=== PATIENT | female | born 1965 | race Caucasian/White ===

== ENCOUNTER 2017-02-06 09:09 | Inpatient (IN) | payer MEDICARE ==
[~2017-02-06] VITALS: Ht 152.4 cm; Wt 64.4 kg
[~2017-02-06 09:09] MED LIST: ACCUNEB SOL3 ML/NEB INH; ALBUTEROL-200 PUFFS/ IH; AMITIZA24 MCG PO; ANAPROX DS550 MG PO; ANTI-GAS ULTRA180 MG PO; ANUSOL HC 25MG25 MG PR; ASPIRIN 81MG TA81 MG PO; BACTRIM DS 8001 TAB PO; BENZONATATE200 MG PO; BIAXIN500 MG PO; BUSPAR 10MG TAB10 MG PO; CRESTOR5 MG PO; DILTIAZEM ER 1120 MG PO; DRAMAMINE25 MG PO; EFFEXOR-XR150 MG PO; FENOFIBRATE134 M1 PO; FLEET REGU133 ML/BOT PR; FLEXERIL10 MG PO; HYCODAN 5MG. TAB5 MG PO; IPRATROPIUM 2.2.5 ML INH; LAMICTAL 100 M100 MG PO; LEVAQUIN750 MG PO; LINZESS290 MCG PO; LODINE400 MG PO; LOPRESSOR 50 MG50 MG PO; LORTAB 500 MG-71 TAB PO; MACROBID100 M3 PO; MEDROL 4MG. DOSE4 MG PO; METFORMIN500 MG PO; NEBULIZER XX; NEXIUM40 MG PO; NITROGLYCERIN0.4 MG SL; OMNICEF 300 MG300 MG PO; PAROXETINE HCL10 MG PO; PERCOCET 5/3251 EACH PO; SALMETEROL-F28 PUFF2 IN; SYNTHROID0.112 MG PO; TAMIFLU 75MG CA75 MG PO; TESSALON PERLE200 MG PO; TRAZODONE 50MG50 MG PO; WELCHOL625 MG PO; XANAX 1MG TABLET1 MG PO; ZITHROMAX Z-PA250 M2 PO
--- OUTSIDE RECORDS SUMMARY | 2017-02-06 09:22 | External Medical Summary Rpt ---
Author Author , EDUARDO CLARK Address Unknown Phone [email or web address] Care Team Providers Care Medical Lab Tech Instructor Name Role Phone [facility] Unavailable Unavailable PHYSICIANS, [facility] GILMAR CHRISTIANSEN Unavailable Unavailable MICHAEL BESSON OSCAR, BESSON Unavailable Unavailable OSCAR BESSON, KRYSTYNA A, Unavailable Unavailable BESSON, KRYSTYNA A GARCIA, GARCIA Unavailable Unavailable GARCIA ALL, GARCIA ALL Unavailable Unavailable LUNDBERG, LUNDBERG Unavailable Unavailable LUNDBERG JAM, LUNDBERG JAM Unavailable Unavailable [facility], Unavailable Unavailable [facility] NAVEEN TAPIA, NAVEEN Unavailable Unavailable [facility]ON [facility], Unavailable Unavailable [facility], Unavailable [facility]available [facility] Unavailable [facility]available [facility] SURGIAL Unavailable Unavailable ASSOCIATE, [facility] ASSOCIATE [facility] Unavailable Unavailable [facility], [facility]available Unavailable [facility], [facility] Unavailable Unavailable LAB, [facility] Unavailable Unavailable [facility], [facility] Unavailable Unavailable [facility], [facility] Unavailable Unavailable [facility], [facility] JEAN CK, Unavailable Unavailable JEAN CK JEAN CK, Unavailable Unavailable JEAN CK JEAN, INEZ, Unavailable Unavailable JEAN, INEZ BOBO MITESH, BOBO Unavailable Unavailable [facility] AND Unavailable [facility]available [facility] JESSY, JESSY Unavailable Unavailable JESSY JOANNA, Unavailable Unavailable JESSY JOANNA JESSY JOANNA, Unavailable Unavailable JESSY JOANNA BECCA MCADAMS Unavailable Unavailable TYESHA NAZANIN HUDSON S, Unavailable Unavailable NAZANIN HUDSON S [facility], Unavailable Unavailable [facility] [address]ACEY [address], [facility]ACEY WAY Unavailable Unavailable [facility], Unavailable [facility]available [facility] Unavailable Unavailable INC, [facility] ALYSHA, ALEKS, ALYSHA, Unavailable Unavailable ALEKS RIVAS KAYA, RIVAS KAYA Unavailable Unavailable CHERELLE RIVAS A, Unavailable Unavailable CHERELLE RIVAS A [facility], Unavailable Unavailable [facility] JOSÉ MIGUEL ROSA, Unavailable Unavailable JOSÉ MIGUEL ROSA JOSÉ MIGUEL ROSA, Unavailable Unavailable JOSÉ MIGUEL ROSA PA ISIDORO, PA ISIDORO Unavailable Unavailable SUYRA NAN, SURYA Unavailable Unavailable NAN SURYA NAN, SURYA Unavailable Unavailable NAN [facility] Unavailable Unavailable IM[facility]ING [facility], [facility] GIBSON TYESHA, GIBSON TYESHA Unavailable Unavailable KOSTELIC, KOSTELIC Unavailable Unavailable KOSTELIC ANA, Unavailable Unavailable KOSTELIC ANA [facility] Unavailable Unavailable [facility], [facility] Unavailable Unavailable [facility], [facility] KI LITA, KI Unavailable Unavailable LITA TAPIA GLE, TAPIA GLE Unavailable Unavailable KERNSDERRICK Park LEVY, Unavailable Unavailable DERRICK [facility] Unavailable Unavailable [facility], [facility] ADRIÁN HAM, ADRIÁN HAM Unavailable Unavailable MCGROARTY ROSA, Unavailable Unavailable MCGROARTY ROSA KAI LAMA, Unavailable Unavailable MITRA CONRAD JR, JR Unavailable Unavailable F, MITRA QUINN JR, Unavailable Unavailable [facility] LORNA PINEDA, Unavailable Unavailable LORNA PINEDA [facility] Unavailable Unavailable [facility], [facility] Unavailable Unavailable [facility] Unavailable Unavailable LAB, [facility] Unavailable Unavailable LAB, [facility] LAB CHINO HALI, CHINO HALI Unavailable Unavailable CHINO HALI, CHINO HALI Unavailable Unavailable CHINO, VARINDER, CHINO, Unavailable Unavailable VARINDER DIVYA, DIVYA Unavailable Unavailable JERILYN, JERILYN Unavailable Unavailable JERILYN HEA, JERILYN HEA Unavailable Unavailable RICE THO, RICE THO Unavailable Unavailable JOANNA OSCAR, JOANNA OSCAR Unavailable Unavailable JOANNA OSCAR, JOANNA OSCAR Unavailable Unavailable [id number], Unavailable Unavailable [id number] Unavailable Unavailable [id number] [address] [id number], [facility] [id number] # [id number] MENDES II EAR, Unavailable Unavailable MENDES II EAR DIVYA LIS, DIVYA LIS Unavailable Unavailable DIVYA, SIM A, Unavailable Unavailable DIVYA, SIM A CAITLYN Falcon, CAITLYN Falcon Unavailable Unavailable YOVANY JR, YOVANY Unavailable Unavailable JR SLABJAKOBRENETTA JR THO, Unavailable Unavailable SLABPAULA JR THO SOKAN BAB, SOKAN BAB Unavailable Unavailable SOKAN, MARCIA O, Unavailable Unavailable SOKAN, MARCIA O [facility], Unavailable Unavailable [facility], Unavailable Unavailable [facility] Unavailable Unavailable MED CTR, [facility] STACK, STACK Unavailable Unavailable KRYSTYNA JOANNA DO, Unavailable Unavailable KRYSTYNA JOANNA DO CARTAGENA, CARTAGENA Unavailable Unavailable CARTAGENA RAY, CARTAGENA Unavailable Unavailable RAY ASIA MARIE, BETANCOURT Unavailable Unavailable CYNTHIA KIRBY, NIKI Unavailable Unavailable MIRTA [facility], Unavailable Unavailable [facility] Unavailable [facility]available [facility], [facility]available [facility]available #591, [facility] Unavailable Unavailable #591, [facility] # [facility]available Unavailable [id number], [facility] # [id number] ON LICENSE OF [facility] Unavailable Unavailable AGENCY[facility] ON LICENSE OF 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 NERVOUS SYSTEM UNS K5909 OTHER 11-11-2016 [facility] CONSTIPATIO SURGIAL N ASSOCIATE R140 ABDOMINAL 11-11-2016 [facility] DISTENSION SURGIAL GASEOUS ASSOCIATE R159 FULL 11-11-2016 COL[facility] INCONTINENC SURGIAL E OF FECES ASSOCIATE K5730 DIVERTICULO 10-15-2016 [place] SIS LG MEDICAL INTEST W/O IMAGING ASS PERF/ABSC W/O BLEED K5901 SLOW 10-15-2016 [place] TRANSIT MEDICAL CONSTIPATIO IMAGING ASS N N816 RECTOCELE 10-01-2016 [facility] Z8719 PERSONAL 09-20-2016 [place] HISTORY MEDICAL OTHER IMAGING ASS DISEASES DIGESTIVE SYSTEM Z720 TOBACCO USE 09-04-2016 COLORECTAL SURGIAL ASSOCIATE N390 URINARY 06-08-2016 [facility] TRACT CARE INFECTION PHYSICIANS SITE NOT SPECIFIED R1032 LEFT LOWER 06-08-2016 [facility] PRIMARY QUADRANT CARE PAIN PHYSICIANS R1030 LOWER 06-07-2016 [place] ABDOMINAL [place] PAIN INTERNAL UNSPECIFIED MED 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 CHRONIC 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 UNS 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 R32 UNSPECIFIED 05-31-2016 [facility] URINARY HEALTH INCONTINENC AGENCY E R350 FREQUENCY 04-15-2016 NEW OF [place] [facility]CT[facility] PSC R3915 URGENCY OF 04-15-2016 NEW URINATION [facility] PSC I10 ESSENTIAL 03-25-2016 [place] PRIMARY VALLEY HYPERTENSIO INTERNAL N MED [id number] POISONING 03-25-2016 [facility] OTH OPIOIDS VALLEY SELF-HARM INTERNAL INITIAL MED ENCNTR D199Z4Q POISONING 03-25-2016 [place] BENZODIAZEP VALLEY [place] INTERNAL SELF-HARM MED INITIAL ENC Z1231 ENCOUNTER 03-06-2016 [facility] MAMMO MAL INC NEOPLASM BREAST O01362 PERSONAL 03-06-2016 [place] HISTORY OF MEDICAL URINARY IMAGING ASS CALCULI M545 LOW BACK 11-21-2015 [facility] PR[facility] PAIN CARE PHYSICIANS R300 DYSURIA 11-21-2015 [facility] PHYSICIANS N202 CALCULUS OF 10-09-2015 NEW KIDNEY [place] WITH CLINIC PSC CALCULUS OF URETER N201 CALCULUS OF 08-30-2015 NEW URETER [facility] [facility] PSC K5900 CONSTIPATIO 06-27-2015 NEW N [place] UNSPECIFIED CLINIC PSC R1031 RIGHT LOWER 06-27-2015 [facility] P[facility] R150 INCOMPLETE 06-27-2015 NEW DEFECATION [facility] [facility] PSC U23757 OTHER 05-23-2015 [place] MUSCLE VALLEY SPASM INTERNAL MED Q994H0K CONCUSSION 05-23-2015 [place] W/LOC UNS VALLEY DURATION INTERNAL INITIAL MED ENCOUNTER I504WYX SPRAIN 05-23-2015 [place] JOINT & LIG VALLEY UNS PARTS INTERNAL NECK MED SUBSEQUENT ENC I24258 POST-TRAUMA 05-17-2015 [place] TIC MEDICAL HEADACHE IMAGING ASS UNS NOT INTRACTABLE M542 CERVICALGIA 05-17-2015 [place] [facility] ASS R4020 UNSPECIFIED 05-17-2015 [place] COMA MEDICAL IMAGING ASS E2375DO UNSPECIFIED 05-17-2015 [place] INJURY OF MEDICAL HEAD IMAGING ASS INITIAL ENCOUNTER H549ZSR UNSPECIFIED 05-17-2015 [place] INJURY OF MEDICAL NECK IMAGING ASS INITIAL ENCOUNTER 4550 INTERNAL 12-02-2014 NEW HEMORRHOIDS [place] WITHOUT CLINIC PSC MENTION COMP 89028 ESOPHAGEAL 12-02-2014 NEW REFLUX [place] [facility] PSC 53461 UNS 12-02-2014 NEW GASTRITIS&G [place] ASTRODUODIT CLINIC PSC IS W/O MENTION HEMORR 99378 OTHER 12-02-2014 NEW SYMPTOMS [place] INVOLVING CLINIC PSC DIGESTIVE SYSTEM OTHER 5920 CALCULUS OF 11-30-2014 [facility] INC V7189 OBSERVATION 11-30-2014 [place] OTHER MEDICAL SPECIFIED IMAGING ASS SUSPECTED CONDITIONS V2542 SURVEILLANC 07-12-2014 [facility] E PREV PRSC PHYSICIANS INTRAUTERN GROUP CNTRACPT DEVC V259 UNSPECIFIED 07-12-2014 [facility] PHYSICIANS CONTRACEPTI GROUP VE MANAGEMENT 56452 FULL 04-29-2014 NEW INCONTINENC [place] E OF FECES CLINIC PSC 20447 PAINFUL 03-04-2014 [place] RESPIRATION MEDICAL IMAGING ASS 7867 ABNORMAL 03-04-2014 [place] CHEST MEDICAL SOUNDS IMAGING ASS 5921 CALCULUS OF 02-06-2014 [place] URETER MEDICAL IMAGING ASS 73263 HEMATURIA 02-06-2014 [place] UNSPECIFIED MEDICAL IMAGING ASS 04584 ABDOMINAL 02-06-2014 [place] PAIN OTHER MEDICAL SPECIFIED IMAGING ASS SITE 73756 COR 11-04-2013 [facility] UNSPEC INC TYPE VESSEL [place]/CHARLES T 250.00 250.00 DIAB 07-25-2013 [facility], [facility] Hospital II OR UNSPEC TYPE, NOT UNCNTRLD 305.1 305.1 07-25-2013 [place] TOBACCO USE [facility] DISORDER Hospital 413.9 413.9 07-25-2013 [place] ANGINA [facility] PECTORIS [facility] NEC/NOS 493.90 493.90 07-25-2013 [place] ASTHMA, [facility] UNSPECIFIED Hospital 564.00 564.00 07-25-2013 [place] UNSPEC [facility] CONSTIPATIO [facility] N 788.0 788.0 RENAL 07-25-2013 [place] COLIC [facility] 7880 RENAL COLIC 07-25-2013 JOANNA OSCAR 82192 DIAB W/O 05-24-2013 CLINIC COMP TYPE PHARMACY II/UNS NOT STATED UNCNTRL 3499 UNSPECIFIED 04-23-2013 [facility] 98996 ABDOMINAL 04-23-2013 RICE THO PAIN, UNSPECIFIED SITE 79650 UNSPECIFIED 03-25-2013 JESSY JOANNA CONSTIPATIO N 7061 OTHER ACNE 03-25-2013 JESSY JOANNA 2449 UNSPECIFIED 10-22-2012 JESSY JOANNA HYPOTHYROID ISM 2724 OTHER AND 10-22-2012 JESSY UNSPECIFIED JOANNA HYPERLIPIDE NOEMI 4019 UNSPECIFIED 10-22-2012 JESS[facility] ESSENTIAL JOANNA HYPERTENSIO N 496 CHRONIC 10-22-2012 JESSY AIRWAY JOANNA OBSTRUCTION NEC 5641 IRRITABLE 10-22-2012 JESS[facility] BOWEL JOANNA SYNDROME 7873 FLATULENCE 10-22-2012 J[facility] ERUCTATION JOANNA AND GAS PAIN 490 BRONCHITIS 07-29-2012 JESSY NOT JOANNA SPECIFIED ACUTE OR CHRONIC 43583 OBST 07-29-2012 [facility] BRONCHITIS INC W/ACUTE BRONCHITIS 66428 OTHER 07-29-2012 JEAN DISEASES OF CK LUNG NOT ELSEWHERE CLASSIFIED 7291 UNSPECIFIED 07-29-2012 JESSY MYALGIA JOANNA AND MYOSITIS 5363 GASTROPARES 06-29-2012 CHINO HALI IS 5718 OTHER 06-29-2012 CHINO HALI CHRONIC NONALCOHOLI C LIVER DISEASE 55556 DIVERTICULO 06-12-2012 JEAN SIS OF CK COLON 5738 OTHER 06-12-2012 JEAN SPECIFIED CK DISORDERS OF LIVER 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 SITE UNSPEC V4551 PRESENCE OF 06-12-2012 JEAN CK INTRAUTERIN E CONTRACEPTI VE DEVICE 92697 CHEST PAIN 03-17-2012 [place] UNSPECIFIED TH ROSA 2720 PURE 03-11-2012 [place] HYPERCHOLES TH ROSA TEROLEMIA 68046 OTHER CHEST 03-11-2012 [place] PAIN TH ROSA V762 SCREENING 02-27-2012 PATHOLOGY & FOR CYTOLOGY MALIGNANT LAB NEOPLASM OF THE CERVIX 79837 OTHER 12-20-2011 [place] DISEASES OF MEDICAL SPLEEN IMAGING ASS 95640 OTHER 12-20-2011 [place] SPECIFIED MEDICAL DISORDER OF IMAGING ASS KIDNEY AND URETER 7912 HEMOGLOBINU 11-06-2011 [facility] INC 5990 URINARY 10-24-2011 KAI [facility]IST[facility] TRACT KELBY INFECTION SITE NOT SPECIFIED 7881 DYSURIA 10-24-2011 KAI LAMA 7948 NONSPECIFIC 08-29-2011 [facility] ABNORMAL [facility] RESULTS INC LIVR FUNCTION STUDY 462 ACUTE 08-02-2011 [facility] PHARYNGITIS 485 BRONCHOPNEU 08-02-2011 [facility] [place] MONIA ORGANISM UNSPECIFIED 7862 COUGH 08-02-2011 SURYA [place] 63053 UNSPECIFIED 07-17-2011 JESSY OJANNA ARTHROPATHY MULTIPLE SITES 13373 PAIN IN 07-17-2011 [place] JOINT, HAND MEDICAL IMAGING ASS 29989 DISORDER OF 07-17-2011 [facility] BONE AND [facility] CARTILAGE INC UNSPECIFIED 11523 OTHER 07-02-2011 RIVAS KAYA VITREOUS OPACITIES 7231 CERVICALGIA 11-07-2010 [place] [facility] 7241 PAIN IN 11-07-2010 [place] THORACIC MEDICAL SPINE IMAGING ASS 10701 ATROPHIC 10-29-2010 PATHOLOGY & GASTRITIS CYTOLOGY WITHOUT LAB MENTION OF HEMORRHAGE 99500 OTHER SPEC 10-29-2010 [place] MEDICAL GASTRITIS SERV WITHOUT FOUNDATIO MENTION HEMORRHAGE 26576 DYSPHAGIA 10-29-2010 COMMUNITY UNSPECIFIED ANESTH OF THE BLUE 42247 ABDOMINAL 10-29-2010 [place] [facility] PAIN, SERV GENERALIZED FOUNDATIO 7823 EDEMA 10-09-2010 [facility] [place] 7850 UNSPECIFIED 09-05-2010 [facility] TACHYCARDIA [place] V1009 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 2893 LYMPHADENIT 07-12-2010 [facility] UNSPECIFIED EXCEPT MESENTERIC 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 9982 ACCIDENTAL 02-23-2010 [facility] PUN[facility]URE/[facility] CERATION DURING PROC NEC 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 4553 EXTERNAL 02-05-2010 [place] [facility] HEMORRHOIDS SERV WITHOUT FOUNDATIO MENTION COMP 5690 ANAL AND 02-05-2010 [facility] RECTAL [facility] POLYP INC 5693 HEMORRHAGE 02-05-2010 PATHOLOGY & OF RECTUM CYTOLOGY AND ANUS LAB 97126 OTHER 10-05-2009 [facility] SPECIFIED [facility] DYSRHYTHMIA PROF SERV S 40130 THYROTOX 07-03-2009 DERRICK KERNS W/O GOITER/OTH CAUSE W/O CRISIS 08585 OTHER 05-03-2009 [facility] DYSPNEA AND VALLEY INTERNAL RESPIRATORY MED ABNORMALITI ES V5861 LONG-TERM 04-04-2009 [facility]CURRENT[facility] USE OF INC ANTICOAGULA NTS V251 ENCOUNTER 02-28-2009 [facility] INSERT/[facility] CONI IU CLINIC OF CONTRACEPTI SARAH VE DEVICE V7231 ROUTINE 02-28-2009 [facility] GYNECOLOGIC HEALTH AL CLINIC OF EXAMINATION SARAH V7612 OTHER 02-28-2009 [place] SCREENING MEDICAL MAMMOGRAM IMAGING ASSOCIATES 3384 CHRONIC 02-08-2009 LAB [facility] PAIN AMERIC SYNDROME HOLDING 80566 OTHER 02-08-2009 [facility] MALAISE AND PHYSICIANS FATIGUE LAB 93402 OTHER VOICE 12-08-2008 [place] AND MEDICAL RESONANCE IMAGING DISORDERS ASSOCIATES 4660 ACUTE 11-23-2008 [facility] BRONCHITIS [facility] INC 16043 ASTHMA, 11-23-2008 [place] UNSPECIFIED EMERGENCY , SERVICES UNSPECIFIED ASSOCIATES STATUS 4558 UNSPECIFIED 11-20-2008 [facility] HEMORRHOIDS INC WITH OTHER COMPLICATIO N 7242 LUMBAGO 10-31-2008 [facility] VALLEY INTERNAL MED 7810 ABNORMAL 10-31-2008 [facility] INVOLUNTARY VALLEY MOVEMENTS INTERNAL MED 12460 OTHER 07-07-2008 [facility] CHRONIC VALLEY PAIN INTERNAL MED 460 ACUTE 07-07-2008 [place] NASOPHARYNG VALLEY ITIS INTERNAL MED 2409 GOITER, 03-01-2008 [place] UNSPECIFIED [facility]ICAL IMAGING ASSOCIATES 6260 ABSENCE OF 03-01-2008 [facility] MENSTRUATIO [facility] N INC 03610 LOSS OF 03-01-2008 [place] WEIGHT [facility] 84199 INSOMNIA 02-26-2008 [place] UNSPECIFIED VALLEY INTERNAL MED 56212 PAIN IN 01-19-2008 [facility] JOINT, [facility] SHOULDER INC REGION V571 OTHER 01-19-2008 [facility] PHYSICAL [facility] THERAPY INC 83267 OPEN WOUND 12-13-2007 [facility] FACE UNSPEC [facility] HOS[facility] SITE INC WITHOUT MENTION COMP V065 NEED 12-13-2007 [facility] PROPHYLACTI [facility]OS[facility] C INC VACCINATION W/TETANUS-D [facility] [address]79 ENTHESOPATH 12-07-2007 [place] Y OF VALLEY UNSPECIFIED INTERNAL SITE MED 8409 SPRAIN&STRA 12-01-2007 ST [facility] UNSPEC REGIONAL SITE MED CTR SHOULDER&UP PER ARM Allergies, Adverse Reactions, Alerts Type Drug Allergy Adverse Reaction to Substance Substance Reaction Severity Acetaminophen THROAT SWELLS/ITCHING Unknown Hydrocodone THROAT SWELLS/ITCHING Unknown Citalopram ITCHING,SWELLING Unknown Medications Na ND Rx Da Fi Fi Am Da Di Ph RX Ph St me C No te ll ll ou ys ag ar # ys at rm s nt no ma ic us Or Da si cy ia de te s n re d SO 00 02 0 No DI 40 -0 UM 97 2- Lo 98 20 ng CH 30 14 er LO 9 RI Ac DE ti ve 0. 9% SO ALANNAH TI ON KE 00 02 0 No TO 40 -0 RO 93 2- Lo LA 79 20 ng C 50 14 er 30 1 Ac MG ti /M ve L AL DI 00 06 10 2 10 28 RI 88 MO Ac AZ 17 -0 -2 0. TE 64 LL ti EP 23 7- 9- 00 43 ER ve AM 92 20 20 0 AI 77 11 11 D CA 10 0 PH RO AR L MG MA J CY TA BL 03 ET 93 8 # 03 93 DI 00 04 10 2 10 28 RI 87 MO Ac AZ 17 -1 -0 0. TE 90 LL ti EP 23 2- 3- 00 50 ER ve AM 92 20 20 0 AI 77 11 11 D CA 10 0 PH RO AR L MG MA J CY TA BL 03 ET 93 8 # 03 93 DI 00 04 09 2 10 28 RI 87 MO Ac AZ 17 -1 -0 0. TE 90 LL ti EP 23 2- 2- 00 50 ER ve AM 92 20 20 0 AI 77 11 11 D CA 10 0 PH RO AR L MG MA J CY TA BL 03 ET 93 8 # 03 93 DI 00 06 07 1 10 28 RI 88 MO Ac AZ 17 -0 -2 0. TE 96 LL ti EP 23 7- 9- 00 72 ER ve AM 92 20 20 0 AI 77 11 11 D CA 10 0 PH RO AR L MG MA J CY TA BL 03 ET 93 8 # 03 93 DI 00 06 07 1 10 28 RI 88 MO Ac AZ 17 -0 -0 0. TE 96 LL ti EP 23 7- 3- 00 72 ER ve AM 92 20 20 0 AI 77 11 11 D CA 10 0 PH RO AR L MG MA J CY TA BL 03 ET 93 8 # 03 93 DI 00 06 06 2 10 28 RI 88 MO Ac AZ 17 -0 -0 0. TE 64 LL ti EP 23 7- 7- 00 43 ER ve AM 92 20 20 0 AI 77 11 11 D CA 10 0 PH RO AR L MG MA J CY TA BL 03 ET 93 8 # 03 93 DI 00 03 05 2 10 28 RI 87 MO Ac AZ 17 -0 -0 0. TE 29 LL ti EP 23 1- 1- 00 06 ER ve AM 92 20 20 0 AI 77 11 11 D CA 10 0 PH RO AR L MG MA J CY TA BL 03 ET 93 8 # 03 93 DI 00 03 04 2 10 28 RI 87 MO Ac AZ 17 -0 -0 0. TE 29 LL ti EP 23 1- 3- 00 06 ER ve AM 92 20 20 0 AI 77 11 11 D CA 10 0 PH RO AR L MG MA J CY TA BL 03 ET 93 8 # 03 93 DI 00 03 03 2 10 28 RI 87 MO Ac AZ 17 -0 -0 0. TE 29 LL ti EP 23 1- 1- 00 06 ER ve AM 92 20 20 0 AI 77 11 11 D CA 10 0 PH RO AR L MG MA J CY TA BL 03 ET 93 8 # 03 93 DI 00 01 02 1 90 30 RI 86 MO Ac AZ 17 -0 -0 .0 TE 56 LL ti EP 23 9- 1- 00 74 ER ve AM 92 20 20 AI 77 11 11 D CA 10 0 PH RO AR L MG MA J CY TA BL 03 ET 93 8 # 03 93 DI 00 12 12 90 30 RI 86 MO Ac AZ 17 -3 -3 .0 TE 43 LL ti EP 23 0- 0- 00 91 ER ve AM 92 20 20 AI 77 10 10 D CA 10 0 PH RO AR L MG MA J CY TA BL 03 ET 93 8 # 03 93 BE 67 12 12 0 30 8 CL 22 BE Ac NZ 87 -3 -3 .0 IN 96 SS ti ON 70 0- 0- 00 IC 19 ON ve AT 10 20 20 AT [address] E 1 AR EP 20 MA HE 0 CY N MG A LL CA C PS UL E AK 00 12 12 24 4 RI 86 BE Ac OM 60 -2 -2 0. TE 43 SS ti ET 31 9- 9- 00 33 ON ve RICHEY 58 20 20 0 AI ZI [address] 4 PH EP -D AR HE M MA N SY CY A RU P 03 93 8 # 03 93 AL 00 11 11 0 90 30 WA 44 MC Ac AK 37 -2 -2 .0 L- 90 KE ti AZ 84 6- 6- 00 MA 08 MO ve OL 00 20 20 RT 0 E AM 50 10 10 JR 1 1 PH AR WI MG MA LL CY IA TA # M BL F ET 10 05 91 DI 00 09 11 2 90 30 RI 85 MO Ac AZ 17 -2 -2 .0 TE 20 LL ti EP 23 9- 4- 00 48 ER ve AM 92 20 20 AI 77 10 10 D CA 10 0 PH RO AR L MG MA J CY TA BL 03 ET 93 8 # 03 93 AL 00 10 10 0 90 30 WA 44 MC Ac AK 37 -2 -2 .0 L- 89 KE ti AZ 84 8- 8- 00 MA 38 MO ve OL 00 20 20 RT 8 E AM 50 10 10 JR 1 1 PH AR WI MG MA LL CY IA TA # M BL F ET 10 05 91 DI 00 09 10 2 90 30 RI 85 MO Ac AZ 17 -2 -2 .0 TE 20 LL ti EP 23 9- 7- 00 48 ER ve AM 92 20 20 AI 77 10 10 D CA 10 0 PH RO AR L MG MA J CY TA BL 03 ET 93 8 # 03 93 DI 00 09 09 2 90 30 RI 85 MO Ac AZ 17 -2 -3 .0 TE 20 LL ti EP 23 9- 0- 00 48 ER ve AM 92 20 20 AI 77 10 10 D CA 10 0 PH RO AR L MG MA J CY TA BL 03 ET 93 8 # 03 93 00 06 08 2 90 30 RI 83 MO Ac 55 -0 -1 .0 TE 61 LL ti 50 1- 1- 00 93 ER ve 16 20 20 AI 40 10 10 D CA 5 PH RO AR L MA J CY 03 93 8 # 03 93 00 06 07 2 90 30 RI 83 MO Ac 55 -0 -1 .0 TE 61 LL ti 50 1- 2- 00 93 ER ve 16 20 20 AI 40 10 10 D CA 2 PH RO AR L MA J CY 03 93 8 # 03 93 MA 60 07 07 5 60 30 WA 88 SE Ac GN 25 -0 -0 .0 L- 16 LB ti ES 80 1- 1- 00 MA 23 Y ve IU 17 20 20 RT 0 LI M 10 10 10 SB OX 1 PH ET ID AR H E MA A 40 CY 0 # MG 10 TA 05 BL 91 ET DI 00 06 06 2 90 30 RI 83 MO Ac AZ 17 -0 -1 .0 TE 61 LL ti EP 23 1- 5- 00 93 ER ve AM 92 20 20 AI 77 10 10 D CA 10 0 PH RO AR L MG MA J CY TA BL 03 ET 93 8 # 03 93 DI 00 03 05 2 90 30 RI 82 MO Ac AZ 17 -2 -1 .0 TE 67 LL ti EP 23 3- 6- 00 01 ER ve AM 92 20 20 AI 77 10 10 D CA 10 0 PH RO AR L MG MA J CY TA BL 03 ET 93 8 # 03 93 DI 00 03 04 2 90 30 RI 82 MO Ac AZ 17 -2 -2 .0 TE 67 LL ti EP 23 3- 0- 00 01 ER ve AM 92 20 20 AI 77 10 10 D CA 10 0 PH RO AR L MG MA J CY TA BL 03 ET 93 8 # 03 93 DI 00 03 03 2 90 30 RI 82 MO Ac AZ 17 -2 -2 .0 TE 67 LL ti EP 23 3- 3- 00 01 ER ve AM 92 20 20 AI 77 10 10 D CA 10 0 PH RO AR L MG MA J CY TA BL 03 ET 93 8 # 03 93 DI 00 12 02 01 60 30 RI 81 No Ac AZ 17 -2 -1 .0 TE 50 t ti EP 23 9- 1- 00 51 Av ve AM 92 20 20 AI ai 77 09 10 D la 10 0 PH bl AR e MG M #3 TA 93 BL 8 ET DI 00 12 01 00 60 30 RI 81 No Ac AZ 17 -2 -1 .0 TE 50 t ti EP 23 9- 4- 00 51 Av ve AM 92 20 20 AI ai 77 09 10 D la 10 0 PH bl AR e MG M #3 TA 93 BL 8 ET DI 00 10 12 00 60 30 RI 80 No Ac AZ 17 -2 -0 .0 TE 79 t ti EP 23 9- 3- 00 59 Av ve AM 92 20 20 AI ai 77 09 09 D la 10 0 PH bl AR e MG M #3 TA 93 BL 8 ET DI 00 09 11 01 60 30 RI 80 No Ac AZ 17 -3 -0 .0 TE 22 t ti EP 23 0- 5- 00 07 Av ve AM 92 20 20 AI ai 77 09 09 D la 10 0 PH bl AR e MG M #3 TA 93 BL 8 ET DI 00 09 10 00 60 30 RI 80 No Ac AZ 17 -3 -0 .0 TE 22 t ti EP 23 0- 8- 00 07 Av ve AM 92 20 20 AI ai 77 09 09 D la 10 0 PH bl AR e MG M #3 TA 93 BL 8 ET DI 00 09 09 00 14 7 RI 79 No Ac AZ 17 -0 -2 .0 TE 91 t ti EP 23 9- 4- 00 62 Av ve AM 92 20 20 AI ai 77 09 09 D la 10 0 PH bl AR e MG M #3 TA 93 BL 8 ET AL 00 08 09 00 60 30 WA 44 MC Ac AK 37 -3 -1 .0 L- 79 KE ti AZ 84 1- 0- 00 MA 29 MO ve OL 00 20 20 RT 9 E AM 50 09 09 JR 1 1 PH AR WI MG MA LL CY IA TA M BL #5 F ET 91 DI 00 08 08 00 60 30 RI 79 No Ac AZ 17 -1 -2 .0 TE 51 t ti EP 23 1- 7- 00 18 Av ve AM 92 20 20 AI ai 77 09 09 D la 10 0 PH bl AR e MG M #3 TA 93 BL 8 ET AL 00 07 08 00 60 30 WA 44 BE Ac AK 37 -2 -1 .0 L- 78 SS ti AZ 84 8- 3- 00 MA 47 ON ve OL 00 20 20 RT 3 AM [address] 1 1 PH EP AR HE MG MA N CY A TA BL #5 ET 91 DI 00 05 07 01 60 30 RI 78 No Ac AZ 17 -2 -1 .0 TE 66 t ti EP 23 8- 6- 00 17 Av ve AM 92 20 20 AI ai 77 09 09 D la 10 0 PH bl AR e MG M #3 TA 93 BL 8 ET CH 00 07 07 00 60 30 RI 79 No Ac LO 55 -0 -1 .0 TE [address] 50 9- 6- 00 00 Av ve IA 15 20 20 AI ai ZE 90 09 09 D la PO 2 PH bl XI AR e DE M #3 25 93 8 MG CA PS UL E DI 00 05 06 00 60 30 RI 78 No Ac AZ 17 -2 -1 .0 TE 66 t ti EP 23 8- 8- 00 17 Av ve AM 92 20 20 AI ai 77 09 09 D la 10 0 PH bl AR e MG M #3 TA 93 BL 8 ET DI 00 03 05 01 60 30 WA 44 No Ac AZ 37 -1 -0 .0 L- 75 t ti EP 80 9- 7- 00 MA 26 Av ve AM 47 20 20 RT 5 ai 70 09 09 la 10 5 PH bl AR e MG MA CY TA BL #5 ET 91 DI 00 03 03 00 60 30 WA 44 No Ac AZ 37 -1 -2 .0 L- 75 t ti EP 80 9- 6- 00 MA 26 Av ve AM 47 20 20 RT 5 ai 70 09 09 la 10 5 PH bl AR e MG MA CY TA BL #5 ET 91 CL 00 02 02 00 60 30 RI 77 No Ac ON 09 -1 -2 .0 TE 16 t ti AZ 30 9- 6- 00 27 Av ve EP 83 20 20 AI ai AM 30 09 09 D la 1 1 PH bl AR e MG M #3 TA 93 BL 8 ET CL 00 11 01 02 60 30 RI 75 No Ac ON 09 -0 -1 .0 TE 79 t ti AZ 30 4- 5- 00 09 Av ve EP 83 20 20 AI ai AM 30 08 09 D la 1 1 PH bl AR e MG M #3 TA 93 BL 8 ET CL 00 11 12 01 60 30 RI 75 No Ac ON 09 -0 -1 .0 TE 79 t ti AZ 30 4- 8- 00 09 Av ve EP 83 20 20 AI ai AM 30 08 08 D la 1 1 PH bl AR e MG M #3 TA 93 BL 8 ET CL 00 11 11 00 60 30 RI 75 No Ac ON 09 -0 -2 .0 TE 79 t ti AZ 30 4- 0- 00 09 Av ve EP 83 20 20 AI ai AM 30 08 08 D la 1 1 PH bl AR e MG M #3 TA 93 BL 8 ET CL 00 10 10 00 60 30 RI 75 No Ac ON 09 -1 -2 .0 TE 37 t ti AZ 30 4- 3- 00 89 Av ve EP 83 20 20 AI ai AM 30 08 08 D la 1 1 PH bl AR e MG M #3 TA 93 BL 8 ET CL 00 06 08 02 60 30 RI 73 No Ac ON 09 -2 -2 .0 TE 87 t ti AZ 30 4- 8- 00 45 Av ve EP 83 20 20 AI ai AM 30 08 08 D la 1 1 PH bl AR e MG M #3 TA 93 BL 8 ET CL 00 06 08 01 60 30 RI 73 No Ac ON 09 -2 -0 .0 TE 87 t ti AZ 30 4- 1- 00 45 Av ve EP 83 20 20 AI ai AM 30 08 08 D la 1 1 PH bl AR e MG M #3 TA 93 BL 8 ET CL 00 06 07 00 60 30 RI 73 No Ac ON 09 -2 -0 .0 TE 87 t ti AZ 30 4- 3- 00 45 Av ve EP 83 20 20 AI ai AM 30 08 08 D la 1 1 PH bl AR e MG M #3 TA 93 BL 8 ET AL 00 05 07 01 60 30 WA 44 No Ac AK 37 -2 -0 .0 L- 68 t ti AZ 84 3- 3- 00 MA 39 Av ve OL 00 20 20 RT 9 ai AM 50 08 08 la 1 1 PH bl AR e MG MA CY TA BL #5 ET 91 AL 00 05 06 00 60 30 WA 44 No Ac AK 37 -2 -0 .0 L- 68 t ti AZ 84 3- 5- 00 MA 39 Av ve OL 00 20 20 RT 9 ai AM 50 08 08 la 1 1 PH bl AR e MG MA CY TA BL #5 ET 91 CL 00 03 06 02 60 30 RI 72 No Ac ON 09 -2 -0 .0 TE 60 t ti AZ 30 4- 5- 00 54 Av ve EP 83 20 20 AI ai AM 30 08 08 D la 1 1 PH bl AR e MG M #3 TA 93 BL 8 ET CL 00 03 05 01 60 30 RI 72 No Ac ON 09 -2 -0 .0 TE 60 t ti AZ 30 4- 8- 00 54 Av ve EP 83 20 20 AI ai AM 30 08 08 D la 1 1 PH bl AR e MG M #3 TA 93 BL 8 ET CL 00 03 04 00 60 30 RI 72 No Ac ON 09 -2 -1 .0 TE 60 t ti AZ 30 4- 0- 00 54 Av ve EP 83 20 20 AI ai AM 30 08 08 D la 1 1 PH bl AR e MG M #3 TA 93 BL 8 ET CL 00 02 04 00 60 30 RI 72 No Ac ON 09 -2 -0 .0 TE 16 t ti AZ 30 5- 7- 00 81 Av ve EP 83 20 20 AI ai AM 30 08 08 D la 1 1 PH bl AR e MG M #3 TA 93 BL 8 ET CL 00 12 03 02 60 30 RI 70 No Ac ON 09 -0 -2 .0 TE 86 t ti AZ 30 3- 6- 00 31 Av ve EP 83 20 20 AI ai AM 30 07 08 D la 1 1 PH bl AR e MG M #3 TA 93 BL 8 ET Immunization Name Date Rout CVX Reac Dose Comm Prov Is Faci e tion ent ider Refu lity Give sed n TDAP 06-2 115 MAIRA No MAIRA 2-20 BRUNILDA BRUNILDA VACC 08 [facility]E 7 HOSP HOSP YRS/ INC INC > IM Vital Signs 07-25-2013 15:40 Name Value Interpretat Reference Comment ion Range Body 98.1 [degF] Temperature BP 62 mm[Hg] Diastolic BP Systolic 104 mm[Hg] Heart 73 /min Rate/Pulse O2% 96 % Respiratory 20 /min Rate 07-25-2013 13:29 Name Value Interpretat Reference Comment ion Range BP 71 mm[Hg] Diastolic BP Systolic 135 mm[Hg] Heart 77 /min Rate/Pulse O2% 94 % Respiratory 20 /min Rate Results Labs Lab Lab Date Result Refere Interp Status Commen Order Detail nces retati t Range on COMPREHENSIVE METABOLIC PANEL (07-25-2013 13:25) Glucose 190 74-106 complet 014 mg/dL ed Bld-mCn 13:25 c BUN 13 7-18 complet Bld-mCn 014 mg/dL ed c 13:25 Creat 1.0 0.6-1.0 complet SerPl-m 014 mg/dL ed Cnc 13:25 Creat 71 50-200 complet Cl 014 ML/MIN ed predict 13:25 ed SerPl C-G-vRa te GFR/BSA 59 59- complet .pred 014 ML/MIN ed SerPl 13:25 Schwart z-vRate Sodium 142 136-145 complet SerPl-s 014 mmoL/L ed Cnc 13:25 Potassi 3.3 3.5-5.1 complet um 014 mmoL/L ed SerPl-s 13:25 Cnc Chlorid 104 98-107 complet e 014 mmoL/L ed SerPl-s 13:25 Cnc CO2 28 21.0-32 complet SerPl-s 014 mmoL/L .0 ed Cnc 13:25 Calcium 8.9 8.5-10. complet 014 mg/dL 1 ed SerPl-m 13:25 Cnc Prot 02-02-2 7.2 6.4-8.2 complet SerPl-m 014 gm/dL ed Cnc 13:25 Albumin 02-02-2 4.1 3.4-5.0 complet 014 gm/dL ed SerPl-m 13:25 Cnc Globuli 02-02-2 3.1 1.3-3.2 complet n 014 gm/dL ed Ser-mCn 13:25 c Albumin 02-02-2 1.3 UNK 1.1-1.8 complet /Glob 014 ed SerPl-m 13:25 Rto Bilirub 02-02-2 0.1 0.2-1.0 complet 014 mg/dL ed SerPl-m 13:25 Cnc AST 02-02-2 27 U/L 15-37 complet SerPl-c 014 ed Cnc 13:25 ALT 02-02-2 40 U/L 12-78 complet SerPl-c 014 ed Cnc 13:25 ALP 02-02-2 129 U/L 50-136 complet SerPl-c 014 ed Cnc 13:25 Amylase SerPl-cCnc (07-25-2013 13:25) Amylase 02-02-2 41 U/L 25-115 complet 014 ed SerPl-c 13:25 Cnc LIPASE (07-25-2013 13:25) LIPASE 02-02-2 428 U/L 73-393 complet 014 ed 13:25 CBC with AUTO DIFF (07-25-2013 13:25) WBC # 02-02-2 7.3 4.8-10. complet Bld 014 K/MM3 8 ed Auto 13:25 RBC # 02-02-2 4.20 4.2-5.4 complet Bld 014 M/mm3 ed Auto 13:25 Hgb 02-02-2 13.2 12.2-16 complet Bld-mCn 014 g/dL .2 ed c 13:25 Hct Fr 02-02-2 37.3 % 37.0-47 complet Bld 014 .0 ed 13:25 MCV RBC 02-02-2 88.9 fl 82.2-97 complet 014 .8 ed 13:25 MCH RBC 02-02-2 31.5 pg 27-31.2 complet Qn 014 ed Auto 13:25 MEAN 02-02-2 35.4 31.8-35 complet CORPUSC 014 g/dl .4 ed ULAR 13:25 HGB CONC RDW RBC 02-02-2 13.9 % 11.5-17 complet Auto 014 .5 ed 13:25 Platele 02-02-2 291 142-424 complet t Bld 014 K/mm3 ed Ql 13:25 Manual MEAN 02-02-2 7.4 fl 7.4-10. complet PLATELE 014 4 ed T 13:25 VOLUME Granulo 02-02-2 57.9 % 37.0-80 complet cytes 014 .0 ed Fr Bld 13:25 Auto LYMPH % 02-02-2 33.5 % 10-50.0 complet 014 ed 13:25 Monocyt 02-02-2 4.1 % 1.7-9.3 complet es Fr 014 ed Bld 13:25 Auto Eosinop 02-02-2 3.4 % 0.1-12. complet hil Fr 014 0 ed Bld 13:25 Auto Basophi 02-02-2 1.1 % 0.1-2.0 complet ls Fr 014 ed Bld 13:25 Auto Granulo 02-02-2 4.2 1.8-7.8 complet cytes # 014 K/mm3 ed Bld 13:25 Auto Lymphoc 02-02-2 2.4 0.7-4.5 complet ytes Fr 014 K/mm3 ed Bld 13:25 Auto Monocyt 02-02-2 0.3 0.1-1.0 complet es # 014 K/mm3 ed Bld 13:25 Auto Eosinop 02-02-2 0.3 0.0-0.4 complet hil # 014 K/mm3 ed Bld 13:25 Auto Basophi 02-02-2 0.1 0-0.2 complet ls # 014 K/MM3 ed Bld 13:25 Auto B-HCG Ur Ql (07-25-2013 12:46) B-HCG 2 NEGATIV NEG complet Ur Ql 014 E ed 12:46 URINALYSIS/COMPLETE (07-25-2013 12:46) URINE YELLOW YELLOW complet COLOR 014 ed 12:46 URINE CLEAR CLEAR complet APPEARA 014 ed NCE 12:46 URINE NEGATIV NEG complet GLUCOSE 014 E ed - 12:46 DIPSTIC K URINE 1+ NEG complet BILIRUB 014 ed IN - 12:46 DIPSTIC K URINE NEGATIV NEG complet KETONE 014 E mg/dL ed 12:46 URINE Greater 1.005-1 complet SPECIFI 014 than .030 ed C 12:46 or GRAVITY equal to 1.030 URINE 3+ NEG complet BLOOD 014 ed 12:46 URINE 6.0 UNK 5.0-8.5 complet PH 014 ed 12:46 URINE 1+ NEG complet PROTEIN 014 mg/dL ed - 12:46 DIPSTIC K URINE 0.2 NEG complet UROBILI 014 E.U./dL ed NOGEN - 12:46 DIPSTIC K URINE NEGATIV NEG complet NITRATE 014 E ed - 12:46 DIPSTIC K URINE 1+ NEG complet LEUK 014 ed ESTERAS 12:46 E URINE 10-20 0 complet RBC 014 rbc/hpf ed 12:46 URINE OCC O complet WBC 014 wbc/hpf ed 12:46 URINE 3-5 0-5 complet SQUAMOU 014 #/hpf ed S CELLS 12:46 URINE 1+ NONE complet CALCIUM 014 #/hpf ed 12:46 OXALATE CRYSTAL S URINE TRACE O complet BACTERI 014 ed A 12:46 Procedures Procedure DOS Code Location Performer Comment ANES 93132 ANESTHESI JERILYN LITHOTRP 7 A XTRCORP ASSOCIATE SHOCK S PSC WAVE W/O WATER BATH LITHOTRIP 53165 [facility] XTRCORP CLINIC SHOCK PSC WAVE RADEX 75285 [facility] [place] KOSTELIC ABDOMEN 1 7 RADIOLOGY ANTEROPOS TERIOR VIEW URNLS DIP 10129 [facility] STICK/TAB CLINIC LET RGNT PSC AUTO W/O MICROSCOP Y RADEX 18283 [facility] COLON 7 MEDICAL BARIUM IMAGING ENEMA ASS W/WO KUB RADEX 89566 [facility] COLON 7 Y OF Y OF BARIUM MIRELLA VU ENEMA E HOS E HOS W/WO KUB RADEX 21560 [facility] ABDOMEN 1 7 [facility] INC INC ANTEROPOS TERIOR VIEW RADEX 52790 [facility] CAT ABDOMEN 1 7 [facility] INC INC ANTEROPOS TERIOR VIEW RADEX 46396 [facility] CAT ABDOMEN 1 7 [facility] INC INC ANTEROPOS TERIOR VIEW PROCTOSGM 15534 [facility] DIVYA DSC RGD 7 L SURGIAL DX W/WO COLLJ ASSOCIATE SPEC BR/[place] [address] [facility] [place] CARTAGENA ABDOMEN & 6 RADIOLOGY PELVIS W/O CONTRAST MATERIAL URNLS DIP 05717 [facility] 6 VALLEY STICK/TAB INTERNAL LET RGNT MED NON-AUTO W/O MICRSCP ADLT SZD T4525 [facility] DISPBL 6 HOME HOME INCONT HEALTH HEALTH PROD AGENCY AGENCY UNDWEAR/P ULLON SM EA DISPBL T4535 [facility] LINER/SHERICE 6 HOME HOME ELD/GUARD HEALTH HEALTH /PAD/UNDG AGENCY AGENCY RMNT INCONT EA INCONTINE T4541 [facility] NCE 6 HOME HOME PRODUCT HEALTH HEALTH DISPOSABL AGENCY AGENCY E UNDPAD LARGE EA DISPBL T4535 [facility] LINER/SHERICE 6 HOME HOME ELD/GUARD HEALTH HEALTH /PAD/UNDG AGENCY AGENCY RMNT INCONT EA ADLT SZD T4525 [facility] DISPBL 6 HOME HOME INCONT HEALTH HEALTH PROD AGENCY AGENCY UNDWEAR/P ULLON SM EA DISPBL T4535 [facility] LINER/SHERICE 6 HOME HOME ELD/GUARD HEALTH HEALTH /PAD/UNDG AGENCY AGENCY RMNT INCONT EA INCONTINE T4541 [facility] NCE 6 HOME HOME PRODUCT HEALTH HEALTH DISPOSABL AGENCY AGENCY E UNDPAD LARGE EA OBSERVATI 98125 [facility] ON CARE 6 [facility] OSCAR DISCHARGE INTERNAL MED MANAGEMEN T INITIAL 76067 [facility] OBSERVATI 6 [place] OSCAR ON INTERNAL CARE/DAY MED 30 MINUTES ECG 97005 [facility] POST ROUTINE 6 [facility] ECG HOSPITAL W/LEAST P 12 LDS I&R ONLY RADEX 34010 [facility] CAT ABDOMEN 1 6 [facility] INC INC ANTEROPOS TERIOR VIEW SCREENING G0202 [facility] CAT 6 [facility] MAMMOGRAP INC INC HY KIM INCL CAD WHEN PERFORMD COMPUTER- 74876 [facility] CAT AIDED 6 [facility] DETECTION INC INC SCREENING MAMMOGRAP HY DISPBL T4535 [facility] LINER/SHERICE 6 HOME HOME ELD/GUARD HEALTH HEALTH /PAD/UNDG AGENCY AGENCY RMNT INCONT EA ADLT SZD T4525 [facility] DISPBL 6 HOME HOME INCONT HEALTH HEALTH PROD AGENCY AGENCY UNDWEAR/P ULLON SM EA INCONTINE T4541 [facility] NCE 6 HOME HOME PRODUCT HEALTH HEALTH DISPOSABL [place] [address] [facility] [place] LUNDBERG ABDOMEN & 6 RADIOLOGY PELVIS W/O CONTRAST MATERIAL INCONTINE T4541 [facility] NCE 6 HOME HOME PRODUCT HEALTH HEALTH DISPOSABL AGENCY AGENCY E UNDPAD LARGE EA ADLT SZD T4526 [facility] DISPBL 6 HOME HOME INCONT HEALTH HEALTH PROD AGENCY AGENCY UNDWEAR MED EA DISPBL T4535 [facility] LINER/SHERICE 6 HOME HOME ELD/GUARD HEALTH HEALTH /PAD/UNDG AGENCY AGENCY RMNT INCONT EA PT DOC G8907 NEW NEW NO:BURN;F 6 [facility] ALL CLINIC CLINIC FAC;WRG PSC PSC EVENT;/HO S TRANSFER PT PREOP G8916 NEW NEW ORD IV 6 [facility] ABX PROPH CLINIC CLINIC ABX PSC PSC INITIATED TIME PROSTHETI L8699 NEW NEW C IMPLANT 6 [facility] NOT CLINIC CLINIC OTHERWISE PSC PSC SPECIFIED URNLS DIP 13844 NEW [place] 6 [place] JR STICK/TAB CLINIC LET RGNT PSC AUTO W/O MICROSCOP Y ANES 53234 ANESTHESI GIBSON TYESHA TRURL 6 A FRAGMNTJ ASSOCIATE MANJ&/RMV S PSC L URETERAL CALCULUS CYSTO 53588 NEW NEW W/INSERT 6 [facility] URETERAL CLINIC CLINIC STENT PSC PSC CYSTO 24688 NEW [facility] W/URETERO 6 [facility] SCOPY CLINIC CLINIC W/[place]VL/[place] [address] EMORYSWATHI CAT ABDOMEN & 6 [facility] PELVIS INC INC W/[place] [address] [place] GARCIA ALL HEAD/BRAI 5 MEDICAL N W/[place] [address] [place] G[place] ALL CERVICAL 5 MEDICAL SPINE W/O IMAGING CONTRAST ASS MATERIAL INCONTINE T4541 [facility] NCE 5 HOME HOME PRODUCT HEALTH HEALTH DISPOSABL AGENCY AGENCY E UNDPAD LARGE EA DISPBL T4535 [facility] LINER/SHERICE 5 HOME HOME ELD/GUARD HEALTH HEALTH /PAD/UNDG AGENCY AGENCY RMNT INCONT EA ADLT SZD T4525 [facility] DISPBL 5 HOME HOME INCONT HEALTH HEALTH PROD AGENCY AGENCY UNDWEAR/P ULLON SM EA COLONOSCO 40872 ENDOSCOPY ENDOSCOPY PY 5 AND AND FLEXIBLE SURGICAL SURGICAL WITH BAND CTR O CTR O LIGATION( S) EGD 06865 ENDOSCOPY ENDOSCOPY TRANSORAL 5 AND AND BIOPSY SURGICAL SURGICAL SINGLE/[place] [address] [facility] ISIDORO SURG 5 [place] [facility] GROSS&TYESHA ROSCOPIC EXAM RADEX 82057 [place] NADEEM ABDOMEN 1 5 MEDICAL MICHAEL IMAGING ANTEROPOS ASS TERIOR VIEW REMOVAL 91248 [facility] PHYSICIAN WILLIE INE S GROUP DEVICE IUD INSERTION 62148 [facility] 5 PHYSICIAN PHYSICIAN INTRAUTER S GROUP S GROUP INE DEVICE IUD INC 69632 [facility] IMPLTJ 4 [place] JR O NEUROSTIM CLINIC ULATOR [facility] ELTRD SACRAL NERVE RADEX 22851 [place] BEINEKE RIBS 4 MEDICAL MICHAEL UNILATERA IMAGING L 2 VIEWS ASS RADEX 44074 [facility] CAT RIBS UNI 4 [facility] W/POSTERO INC INC ANT CH MINIMUM 3 VIEWS RADIOLOGI 27077 [facility] CAT C EXAM 4 [facility] CHEST 2 INC INC VIEWS FRONTAL&[place] [address] GHANSHYAM PACHECOUTCHER ABDOMEN & 4 MEDICAL CK PELVIS IMAGING W/O ASS CONTRAST MATERIAL ECG 97955 SINCERE POST ROUTINE 4 OSCAR OSCAR ECG W/LEAST 12 LDS I&R ONLY ECG 60564 [facility] CAT ROUTINE 4 [facility] ECG INC INC W/LEAST 12 LDS TRCG ONLY W/O I&R LITHOTRIP 62122 YOVANY PEDROZA SY 4 JR THO JR THO XTRCORP SHOCK WAVE BLD GLU A4253 CLINIC CLINIC TEST/REAG 3 PHARMACY PHARMACY T STRIPS HOME BLD GLU LANCETS A4259 CLINIC CLINIC PER BOX 3 PHARMACY PHARMACY OF 100 RADEX ABD 69070 [facility] COMPL 3 NONDENOMINATIONAL NONDENOMINATIONAL AQT ABD HOSP HOSP W/S/E/D V[place] [address] [place] [address] MITZI CARTAGENA ABDOMEN & 3 WILLA PELVIS W/O CONTRAST MATERIAL RADIOLOGI 48203 EMORY CAT C EXAM 3 [facility] CHEST 2 INC INC VIEWS FRONTAL&L ATERAL INJECTION J3301 JESSY SAMPSON HAM 3 JOANNA TRIAMCINO LONE [place] [address] [place] [address] EMORY CAT ABDOMEN & 2 [facility] PELVIS INC INC W/O CONTRAST MATERIAL 3D 79341 EMORY CAT RENDERING 2 [facility] INC INC W/INTERP& POSTPROC DIFF WORK STATION RADEX 32867 EMORY CAT ABDOMEN 1 2 [facility] INC INC ANTEROPOS TERIOR VIEW CATH PLMT 52214 [facility] L HRT & 2 ORTH ROSA ORTH ROSA ARTS W/NJX & ANGIO IMG S&I ECG 60655 [facility] ROUTINE 2 ORTH ROSA ORTH ROSA ECG W/LEAST 12 LDS W/I&R RADIOLOGI 72102 [facility] BRADY J C EXAM 2 RADIOLOGY CHEST 2 ASSOC VIEWS FRONTAL&L ATERAL SCR G0145 PATHOLOGY PATHOLOGY CYTOPATH 2 & & CERV/VAG CYTOLOGY CYTOLOGY SCR LAB LAB AUTO&MNL RSCR PHYS BLD GLU A4253 [facility] TEST/REAG 2 PHARMACY PHARMACY T STRIPS 30-4506 #591 HOME BLD GLU MON-50 CYSTO 49432 YOVANY PEDROZA W/INSERT 2 JR THO JR THO URETERAL STENT CYSTO 01768 NEW NEW W/URETERO 2 [facility] CLINIC CLINIC W/RMVL/[place] [address] [place] JEAN ABDOMEN & 2 MEDICAL CK PELVIS IMAGING W/O ASS CONTRAST MATERIAL 3D 97278 [place] JEAN RENDERING 2 MEDICAL CK IMAGING W/INTERP& ASS POSTPROC DIFF WORK STATION 3D 47341 [place] JEAN RENDERING 2 MEDICAL CK IMAGING W/INTERP& [place] [address] [place] JEAN ABDOMEN & 2 MEDICAL CK PELVIS IMAGING [place] [address] EMORY CAT ABDOMINAL 2 [facility] REAL INC INC TIME W/IMAGE DOCUMENTA TION LIPID 27044 EMORY CAT PANEL 2 [facility]OS[facility] INC INC RHEUMATOI 63209 EMORY CAT D FACTOR 2 MEM HOS[facility] MEM HOS[facility] QUANTITAT INC INC HAIM COMPREHEN 94285 EMORY CAT SIVE 2 MEM H[facility] MEM HOS[facility] METABOLIC INC INC PANEL ANTINUCLE 09986 EMORY CAT AR 2 MEM HOS[facility] MEM HOSP ANTIBODIE INC INC S LAM SEDIMENTA 97302 EMORY CAT TION RATE 2 MEM HOS[facility] MEM [facility]OS[facility] RBC INC INC NON-AUTOM ATED CYCLIC 29008 EMORY CAT CITRULLIN 2 MEM HOS[facility] MEM HOS[facility] [place]ED [place] [address] EMORY CAT THYROID 2 MEM HOS[facility]OS[facility] STIMULATI INC INC NG HORMONE TSH THERAPEUT 08776 JESSY JIMÉNEZ IC 2 JOANNA JOANNA PROPHYLAC TIC/DX INJECTION SUBQ/IM 25 20058 EMORY CAT HYDROXY 2 [facility]OS[facility] INCLUDES INC INC FRACTIONS IF PERFORMED BLOOD 64281 EMORY CAT COUNT 2 [facility] COMPLETE INC INC AUTO&AUTO DIFRNTL WBC RADEX 90061 [place]AR[place] JEAN HAND 2 MEDICAL CK MINIMUM 3 IMAGING VIEWS ASS COLLECTIO 46328 EMORY CAT N VENOUS 2 [facility] BLOOD INC INC VENIPUNCT URE DETERMINA 07403 RIVAS KAYA RIVAS KAYA TION 2 REFRACTIV E STATE RADEX 35107 EMORY CAT ABDOMEN 1 1 [facility] INC INC ANTEROPOS TERIOR VIEW RADEX 49003 TARAY JEAN ABDOMEN 1 1 MEDICAL CK IMAGING ANTEROPOS ASS TERIOR VIEW RADEX 29795 EMORY CAT ABDOMEN 1 1 [facility] INC INC ANTEROPOS TERIOR VIEW SCR G0123 PATHOLOGY PATHOLOGY CYTOPATH 1 & & CERV/VAG CYTOLOGY CYTOLOGY SCR LAB LAB CYTOTECH UND PHYS SUPV RADEX 07508 KENT[place] JEAN ABDOMEN 1 1 MEDICAL CK IMAGING ANTEROPOS ASS TERIOR VIEW RADEX 96089 [place] JEAN ABDOMEN 1 1 MEDICAL CK IMAGING ANTEROPOS ASS TERIOR VIEW RADEX 93040 [place] JEAN ABDOMEN 1 1 MEDICAL CK IMAGING ANTEROPOS ASS TERIOR VIEW RADEX 70401 EMORY CAT ABDOMEN 1 1 [facility] INC INC ANTEROPOS TERIOR VIEW MRI 69939 EMORY CAT SPINAL 1 [facility] CANAL INC INC THORACIC W/O CONTRAST MATRL MRI 01612 EMORY CAT SPINAL 1 [facility] CANAL INC INC CERVICAL W/O CONTRAST MATRL 3D 14186 EMORY CAT RENDERING 1 [facility] W/INTERP INC INC & POSTPROCE SS SUPERVISI ON RADEX 77454 EMORY CAT ABDOMEN 1 1 [facility] INC INC ANTEROPOS TERIOR VIEW URINE 96692 EMORY CAT 1 [facility] TEST INC INC VISUAL COLOR CMPRSN METHS CUL 85364 EMORYSWATHI CRUZON PRSMPTV 1 [facility] PTHGNC INC INC ORGANISMS SCR DNS CHART SPECIAL 18283 PATHOLOGY PATHOLOGY STAIN 1 & & GROUP 1 CYTOLOGY CYTOLOGY MICROORGA LAB LAB [facility] I&R ANES 09945 [facility] UPPER GI 1 ANESTH MIRTA ENDOSCOPY [place] [address] EMORY CAT INFUSION 1 [facility] THERAPY INC INC PROPHYLAX [place] [address] PATHOLOGY PATHOLOGY SURG 1 & & PATHOLOGY CYTOLOGY CYTOLOGY LAB LAB GROSS&[place]HA [place] EX[place] 47066 [place] CH[place] HALI TRANSORAL 1 MEDICAL BIOPSY SERV SINGLE/[place] [address] EMORY CAT INFUSION 1 [facility] THERAPY/P INC INC ROPHYLAXI S /DX 1ST TO 1 HR LIPID 72849 COMBINED COMBINED PANEL 1 PHYSICIAN PHYSICIAN S LA S LA HEMOGLOBI 38003 COMBINED COMBINED N 1 PHYSICIAN PHYSICIAN GLYCOSYLA S LA S LA LAKISHA A1C RADEX 97954 [place] JEAN ABDOMEN 1 1 MEDICAL CK IMAGING ANTEROPOS ASS TERIOR VIEW COLLECTIO 79436 COMBINED COMBINED N VENOUS 1 PHYSICIAN PHYSICIAN BLOOD S LA S LA VENIPUNCT URE URNLS DIP [address] STICK/TAB CLINIC CLINIC LET RGNT PSC PSC AUTO W/O MICROSCOP Y CULTURE 08034 COMBINED COMBINED BACTERIAL 1 PHYSICIAN PHYSICIAN S DON MAGANA QUANTTAT[place] [address] LAB KIM LAB KIM PARATHORM 1 [facility]IC [facility] [employer] RADIOLOGI 38460 [facility] EX[facility] Y Y CHEST 2 HOSPITAL HOSPITAL VIEWS FRONTAL&L ATERAL COLLECTIO 84545 [facility] N VENOUS 1 LTH JR THO BLOOD UROLOGY VENIPUNCT PSC URE URNLS DIP 08414 [facility] 1 LTH LTH STICK/TAB UROLOGY UROLOGY LET RGNT PSC PSC AUTO W/O MICROSCOP Y BASIC 17156 EMORY CAT METABOLIC 0 [facility] PANEL INC INC CALCIUM TOTAL COLLECTIO 47028 EMORY CAT N VENOUS 0 [facility] BLOOD INC INC VENIPUNCT URE RADIOLOGI 24703 [facility] PENA C EXAM 0 MEDICAL CK CHEST 2 IMAGING VIEWS ASS FRONTAL&L ATERAL BLOOD 45368 EMORY CAT COUNT 0 [facility] COMPLETE INC INC AUTO&AUTO DIFRNTL WBC RADEX ABD 18283 [facility] KI COMPL 0 BRANDY LITA AQT ABD EMERGENCY W/S/E/D PHYS VIEWS 1 VIEW CH RADEX 73727 [facility] [place] [facility] ABDOMEN 1 0 RADIOLOGY ANA ANTEROPOS TERIOR VIEW RADEX 35444 [facility] [place] [facility] ABDOMEN 1 0 RADIOLOGY ANA ANTEROPOS TERIOR VIEW LITHOTRIP 75948 [facility] SY 0 LTH JR THO XTRCORP UROLOGY SHOCK PSC WAVE ANES 13731 ANESTHESI JERILYN HEA LITHOTRP 0 A XTR[facility]P ASSOCIATE SHOCK S, PSC WAVE W/O WATER BATH CYSTO 23433 [facility] W/INSERT 0 LTH JR THO URETERAL UROLOGY STENT PSC CULTURE 18164 EM[facility] CAT BACTERIAL 0 [facility] INC [place] [address] EMORY CRUZON INFUSION 0 [facility] THERAPY/P INC INC ROPHYLAXI S /DX 1ST TO 1 HR THERAPEUT 93340 EMORY CAT IC 0 [facility] INJECTION INC INC IV PUSH EACH NEW DRUG ANES 92762 [facility] MCGROARTY TRURL 0 ANESTHESI ROSA FRAGMNTJ A PSC MANJ&/RMV L URETERAL CALCULUS CYSTO 98370 [facility] W/INSERT 0 LTH JR THO URETERAL UROLOGY STENT PSC URNLS DIP 57849 [facility] 0 [facility] STICK/TAB LET REAGENT AUTO MICROSCOP Y CULTURE 52496 LAB KIM LAB KIM BACTERIAL 0 [employer] QUANTTATI VE COLONY COUNT URINE CALCULUS 41124 [facility] QUANTITAT 0 [facility] HAIM CHEMICAL BASIC 10211 [facility] METABOLIC 0 [facility] PANEL CALCIUM TOTAL COLLECTIO 56939 [facility] N VENOUS 0 [facility] BLOOD VENIPUNCT URE BLOOD 61703 [facility] COUNT 0 [facility] COMPLETE AUTOMATED CYSTO 49055 [facility] W/URETERO 0 LTH JR THO SCOPY UROLOGY W/RMVL/MA PSC [place] STONES BLOOD 03162 EM[facility] CAT COUNT 0 [facility] COMPLETE INC INC AUTO&AUTO DIFRNTL WBC CT PELVIS 37876 [place] W/O 0 MEDICAL [place] [address] [place] [facility] ABDOMEN 0 MEDICAL CK W/O IMAGING CONTRAST ASS MATERIAL BASIC 17670 EM[facility] CAT METABOLIC 0 [facility] [place] [address] EM[facility] CAT INFUSION 0 [facility] THERAPY INC INC PROPHYLAX IS/DX EA HOUR CULTURE 90595 EM[facility] CAT BACTERIAL 0 [facility] INC INC QUANTTATI VE COLONY COUNT URINE 3D 88851 EM[facility] CAT RENDERING 0 [facility] INC INC W/INTERP& POSTPROC DIFF WORK STATION URNLS DIP 28659 [facility] CAT 0 [facility] STICK/TAB INC INC LET REAGENT AUTO MICROSCOP Y THERAPEUT 74478 EM[facility] CAT IC 0 [facility] INJECTION [place] [address] EMORY CAT INFUSION 0 [facility] THERAPY/P INC INC ROPHYLAXI S /DX 1ST TO 1 HR CYSTO 21187 [facility] W/SIMPLE 0 LTH LT REMOVAL UROLOGY UROLOGY STONE & ASC ASC STENT INITIAL 40089 [facility] UR[facility] 70 PSC MINUTES ANES [address] TRURL 0 A FRAGMNTJ ASSOCIATE MANJ&/RMV S, PSC L URETERAL CALCULUS CYSTO 18090 [facility] W/INSERT 0 LTH JR THO URETERAL UROLOGY STENT PSC RADEX 49071 [facility] [place]UN[place] JAM ABDOMEN 1 0 RADIOLOGY ANTEROPOS TERIOR VIEW CYSTO 20438 [facility] W/URETERO 0 LTH JR THO SCOPY UROLOGY W/LITHOTR PSC IPSY TRNSURETH 560 [facility] REMOVAL [address] [place] [address] OBST FROM URETER&RE NAL PELV OTHER 5732 [facility] CYSTOSCOP [address] [place] [address] HOSPITAL Y URETEROSC 5631 [facility] OPY [address] [place] [address] [facility] [address] [place] [address] [place] [address] [place] ABDOMEN 0 MEDICAL CK W/O IMAGING CONTRAST ASS MATERIAL CT PELVIS 40065 [place] JEAN W/O 0 MEDICAL CK CONTRAST IMAGING MATERIAL ASS 25 39072 LAB KIM LAB KIM HYDROXY 0 AMERIC AMERIC INCLUDES HOLDING HOLDING FRACTIONS IF PERFORMED COLLECTIO 37901 COMBINED COMBINED N VENOUS 0 PHYSICIAN PHYSICIAN BLOOD S LA S LA VENIPUNCT URE COMPREHEN 18738 COMBINED COMBINED SIVE 0 PHYSICIAN PHYSICIAN METABOLIC S LA S LA PANEL LIPID 00067 COMBINED COMBINED PANEL 0 [place] [address] LAB KIM LAB KIM FREE 0 AMERIC AMERIC [place] [address] COMBINED COMBINED THYROID 0 PHYSICIAN PHYSICIAN STIMULATI S LA S LA NG HORMONE TSH COLONOSCO 44392 [place] CHINO HALI PY 0 MEDICAL W/BIOPSY SERV SINGLE/[place] [address] EM[facility] CAT INFUSION 0 [facility] THERAPY INC INC PROPHYLAX IS/DX EA HOUR ANES 06534 [facility] TAPIA GLE LOWER 0 ANESTH INTESTINE OF THE [place] [address] PATHOLOGY PATHOLOGY SURG 0 & & PATHOLOGY CYTOLOGY CYTOLOGY LAB LAB GROSS&[place] [address] EM[facility] CAT INFUSION 0 [facility] THERAPY/P INC INC ROPHYLAXI S /DX 1ST TO 1 HR URINE 61210 EM[facility] CAT 0 [facility] TEST INC INC [place] [address] EMORY CAT ACTIVATED 0 [facility] ECG INC INC RECORD MONITOR 30 [place] [address] EMORY QUINN ACTIVTD [address] [facility], ECG [facility] W/R&I PROF SERV </30 DAYS ECHO 87381 EMORY CAT TTHRC R-T 0 [facility] 2D INC INC W/WOM-MOD E COMPL SPEC&[place] [address] COMBINED COMBINED THYROID 0 PHYSICIAN PHYSICIAN STIMULATI S LAB S LAB NG HORMONE TSH BASIC 82276 COMBINED COMBINED METABOLIC 0 PHYSICIAN PHYSICIAN PANEL [place] [address] COMBINED COMBINED THYROID 0 PHYSICIAN PHYSICIAN STIMULATI S LAB S LAB NG HORMONE TSH COLLECTIO 82233 COMBINED COMBINED N VENOUS 0 PHYSICIAN PHYSICIAN BLOOD S LAB S LAB VENIPUNCT URE HEPATIC 89076 COMBINED COMBINED FUNCTION 0 PHYSICIAN PHYSICIAN PANEL S LAB S LAB LIPID 41985 COMBINED COMBINED PANEL 0 PHYSICIAN PHYSICIAN S LAB S LAB BLOOD 18030 COMBINED COMBINED COUNT 0 PHYSICIAN PHYSICIAN COMPLETE S LAB S LAB AUTO&AUTO DIFRNTL WBC SBSQ 01858 [facility] [place] 0 DERRICK DERRICK CARE/DAY 15 MINUTES INITIAL 77235 [facility] [place] 0 DERRICK DERRICK CARE/DAY 50 MINUTES IAADIADOO 59283 [facility], 9 [place] KRYSTYNA A INFLUENZA INTER[place] [address] PATHOLOGY PATHOLOGY SURG 9 & & PATHOLOGY CYTOLOGY CYTOLOGY LAB LAB GROSS&TYESHA ROSCOPIC EXAM BIOPSY 66819 EM[facility] CAT LIVER 9 [facility] NEEDLE INC INC PERCUTANE OUS MODERATE 71978 LJ JARVIS 9 MEDICAL INEZ SAME IMAGING PHYS/QHP ASSOCIATE EACH ADDL S 15 [place] [address] EM[facility] CAT INFUSION 9 [facility] THERAPY/P INC INC ROPHYLAXI S /DX [address] [place] [address] [place] [address] EM[facility] CAT GUIDANCE 9 [facility] NEEDLE INC INC PLACEMENT MODERATE 83231 [place] JEAN, SEDATJ 9 MEDICAL INEZ SAME IMAGING PHYS/QHP ASSOCIATE 5/>YRS S INIT 30 MIN SPCL STN 97145 PATHOLOGY PATHOLOGY 2 I&R 9 & & EXCPT CYTOLOGY CYTOLOGY MICROORG/ LAB LAB ENZYME/IM CYT 3D 99588 EM[facility] CAT RENDERING 9 [facility] INC INC W/INTERP& [place] [address] EMORY CAT ABDOMEN 9 [facility] W/O INC INC CONTRAST MATERIAL TECHNETIU A9541 EMORY CAT M TC-99M 9 [facility] SULFUR INC INC COLLOID DX UP TO 20 MCI GASTRIC 24696 EMORY CAT EMPTYING 9 [facility] IMAGING INC INC STUDY COMPREHEN 93778 EMORY CAT SIVE 9 [facility] METABOLIC INC INC PANEL IADNA 25175 EMORY CAT HEPATITIS 9 [facility] C QUANT INC INC & REVERSE TRANSCRIP TION FLUORESCE 53484 EMORY CAT NT 9 [facility] NONNFCT INC INC AGT ANTB TITER EA ANTIBODY THROMBOPL 19798 EMORY CAT ASTIN 9 [facility] TIME INC INC PARTIAL PLASMA/WH OLE BLOOD MICROSOMA 76000 EMORY CAT L 9 [facility] ANTIBODIE INC INC S EACH PROTHROMB 52691 EMORY EMORY IN TIME 9 [facility] INC INC COLLECTIO 90866 EMORY CAT N VENOUS 9 [facility] BLOOD INC INC VENIPUNCT URE BLOOD 94364 EMORY CAT COUNT 9 [facility] COMPLETE INC INC AUTO&[place] [address] EMORY CAT GAMMAGLOB 9 [facility] ULIN IGA [place] [address] [place] JEAN, ABDOMINAL 9 MEDICAL INEZ REAL IMAGING TIME ASSOCIATE W/IMAGE S DOCUMENTA TION OPHTH 44051 [facility], [facility] 9 CHERELLE A CHERELLE A XM&EVAL COMPRHNSV ESTAB PT 1/> LEVONORGE J7302 [facility] STREL-RLS 9 [facility] INTRAUTER SARAH N CNTRACPT 52 MG URINE 93014 [facility] NAVEEN [facility] OF VISUAL SARAH COLOR CMPRSN METHS SCR G0145 PATHOLOGY PATHOLOGY CYTOPATH 9 & & CERV/VAG CYTOLOGY CYTOLOGY SCR LAB LAB AUTO&MNL RSCR PHYS REMOVAL 83056 [facility] INTRAUTER 9 [facility] OF DEVICE SARAH IUD SCREENING 60366 [place] JEAN, 9 MEDICAL INEZ MAMMOGRAP IMAGING HY ASSOCIATE BILATERAL S COMPUTER- 70287 [place] JEAN, AIDED 9 MEDICAL INEZ DETECTION IMAGING ASSOCIATE SCREENING S MAMMOGRAP HY ANTINUCLE 26763 LAB KIM LAB KIM AR 9 AMERIC AMERIC ANTIBODIE HOLDING HOLDING S LAM COLLECTIO 53200 COMBINED COMBINED N VENOUS 9 PHYSICIAN PHYSICIAN BLOOD S LAB S LAB VENIPUNCT URE ACUTE 02484 LAB KIM LAB KIM HEPATITIS 9 AMERIC AMERIC PANEL HOLDING HOLDING ALPHA-1-A 42071 LAB KIM LAB KIM NTITRYPSI 9 AMERIC AMERIC [place] [address] COMBINED COMBINED AMYLASE 9 PHYSICIAN PHYSICIAN S LAB S LAB CERULOPLA 41112 LAB KIM LAB KIM SMIN 9 AMERIC [place] [address] COMBINED COMBINED IRON 9 PHYSICIAN PHYSICIAN S LAB S LAB IMMUNOASS 03297 LAB KIM LAB KIM AY 9 AMERIC AMERIC ANALYTE HOLDING HOLDING QUAL/SEMI QUAL MULTIPLE STEP IRON 11791 COMBINED COMBINED BINDING 9 PHYSICIAN PHYSICIAN CAPACITY S LAB S LAB RADIOLOGI 27936 [place] Whit PINEDA EXAM 9 MEDICAL LORNA P CHEST 2 IMAGING VIEWS ASSOCIATE FRONTAL&L S ATERAL US SOFT 30821 EM[facility] CAT TISSUE 9 [facility] HEAD & INC INC NECK REAL TIME IMGE DOCM PRESSURIZ 86645 EMORY CAT ED/NONPRE 9 [facility] SSURIZED INC INC INHALATIO N TREATMENT HEMOGLOBI 35589 COMBINED COMBINED N 9 PHYSICIAN PHYSICIAN GLYCOSYLA S LAB S LAB LAKISHA A1C COLLECTIO 81925 COMBINED COMBINED N VENOUS 9 PHYSICIAN PHYSICIAN BLOOD [place] [address] COMBINED COMBINED THYROID 9 PHYSICIAN PHYSICIAN STIMULATI S LAB S LAB NG HORMONE TSH LIPID 93696 COMBINED COMBINED PANEL 9 PHYSICIAN PHYSICIAN S LAB S LAB COMPREHEN 97598 COMBINED COMBINED SIVE 9 PHYSICIAN PHYSICIAN METABOLIC S LAB S LAB PANEL COMPREHEN 26114 COMBINED COMBINED SIVE 9 PHYSICIAN PHYSICIAN METABOLIC S LAB S LAB PANEL LIPID 98880 COMBINED COMBINED PANEL 9 PHYSIC[place] [address] COMBINED COMBINED THYROID 9 PHYSICIAN PHYSICIAN STIMULATI S LAB S LAB NG HORMONE TSH COLLECTIO 96928 COMBINED COMBINED N VENOUS 9 PHYSICIAN PHYSICIAN BLOOD S LAB S LAB VENIPUNCT URE HEMOGLOBI 11007 COMBINED COMBINED N 9 PHYSICIAN PHYSICIAN GLYCOSYLA S LAB S LAB LAKISHA A1C BLD GLU A4253 [employer] [facility] TEST/REAG 8 PHARMACY PHARMACY T STRIPS #591 #591 HOME [place] GLU MON-50 [place] [address] EMORY CAT THYROID 8 [facility] STIMULATI INC INC NG HORMONE TSH US SOFT 37520 EMORY CAT TISSUE 8 [facility] HEAD & INC INC NECK REAL TIME IMGE DOCM RADIOLOGI 06290 EMORY CAT C EXAM 8 [facility] CHEST 2 INC INC VIEWS FRONTAL&L ATERAL GONADOTRO 26642 EMORY CAT PIN 8 [facility] FOLLICLE INC INC STIMULATI NG HORMONE GONADOTRO 74310 EMORY CAT PIN 8 [facility]OS[facility] LUTEINIZI INC INC NG HORMONE COLLECTIO 96234 EMORY CAT N VENOUS 8 [facility]OS[facility] BLOOD INC INC VENIPUNCT URE PHYSICAL 20928 EMORY CAT THERAPY 8 [facility] EVALUATIO INC INC N THERAPEUT 28382 EMORY CAT IC PX 1/> 8 [facility] AREAS INC INC EACH 15 MIN EXERCISES E-STIM G0283 EMORY CAT 1/> AREAS 8 [facility] OTH THAN INC INC WND CARE PART TX PLAN SIMPLE 82855 EM[facility] CAT REPAIR 8 [facility] F/E/E/N/L INC INC /M 2.5CM/< IM ADM 61970 EM[facility] CAT PRQ ID 8 [facility] SUBQ/IM INC INC NJXS 1 VACCINE TDAP 25726 EMORY CAT VACCINE 7 8 [facility] YRS/> IM INC INC RADEX [address] SHOULDER 8 [facility] COMPLETE REGIONAL REGIONAL MINIMUM 2 MED CTR MED CTR VIEWS INJECTION J1885 ST ST [address] [place] [address] [facility] REG[facility] MED CTR MED CTR TROMETHAM INE PER [address] PROPH/DX 8 [facility] NJX REGIONAL REGIONAL SUBQ/IM MED CTR MED CTR Encounters Encounter Start End Date Code Location Performer Type Date OFFICE 70084 [facility] OUTPATIEN 7 7 [facility] VISIT CLINIC 15 PSC MINUTES OFFICE 28853 [place] [facility] OUTPATIEN 7 7 L SURGIAL T VISIT 40 ASSOCIATE MINUTES HOSPITAL EMORY - 7 7 [facility] OUT[facility]IEN [facility] UNIVERS[facility] 7 7 Y OF OUTPATIEN [facility] EMORY - 7 7 [facility] OUTPATIEN [facility] EMORY [facility] 7 7 [facility] OUTPATIEN [facility] EMORY [facility] 7 7 [facility] OUTPATIEN [facility] OFFICE 70088 [place] DIVYA OUTPATIEN 7 7 L SURGIAL T NEW 45 MINUTES ASSOCIATE EMERGENCY 54502 [facility] DEPT 6 6 PRIMARY VISIT CARE HIGH PHYSICIAN SEVERITY& S THREAT FUN OFFICE 72867 [place] JESSY OUTPATIEN 6 6 [facility]LEY T VISIT INTERNAL 15 MED MINUTES HOME [facility], 6 6 HOME INPATIENT HEALTH AGENCY [facility], 6 6 HOME INPATIENT HEALTH AGENCY HOME [facility], 6 6 HOME INPATIENT HEALTH AGENCY OFFICE 32070 [place] OUTPATIEN 6 6 PATRICIA JR THO T VISIT CLINIC 15 PSC MINUTES HOSPITAL EMORY - 6 6 [facility] OUTPATIEN INC T HOME ON LICENSE OF [facility], 6 6 HOME INPATIENT HEALTH AGENCY EMERGENCY 60687 [facility] DEPT 6 6 PRIMARY KET VISIT CARE HIGH PHYSICIAN SEVERITY& S THREAT [facility], 6 6 HOME INPATIENT HEALTH AGENCY OFFICE 33353 [place] OUTPATIEN 6 6 PATRICIA JR THO T VISIT CLINIC 15 PSC MINUTES OFFICE 47632 PIERO YOVANY OUTPATIEN 6 6 PATRICIA JR T VISIT CLINIC 15 PSC MINUTES HOSPITAL EMORY - 6 6 [facility] OUTPATIEN INC T OFFICE 02261 PIERO CINTHYA OUTPATIEN 6 6 PATRICIA II EAR T VISIT CLINIC 25 PSC MINUTES OFFICE 24993 [place] JESSY OUTPATIEN 5 5 [facility] T VISIT INTERNAL 15 MED MINUTES HOME ON LICENSE OF [facility], 5 5 HOME INPATIENT HEALTH AGENCY HOSPITAL EMORY - 5 5 [facility] OUTPATIEN INC T HOSPITAL EMORY - 4 4 [facility] OUTPATIEN INC HOSPITAL EMORY - 4 4 [facility] OUTPATIEN INC T Emergency FELIBERTO Emory MARSHALL DO (ER) 4 13:08 4 15:46 [facility] EMERGENCY 22230 JOANNA COOK OSCAR DEPT 4 4 VISIT HIGH SEVERITY& THREAT [facility] - 3 3 NONDENOMINATIONAL OUTPATIEN HOSP T OFFICE 22611 JESSY JESSY OUTPATIEN 3 3 JOANNA JOANNA T VISIT 15 MINUTES [facility] 3 N OUTPATIEN COMMUNITY T HOSPITA OFFICE 55887 JESSY JESSY OUTPATIEN 3 3 JOANNA JOANNA T VISIT 15 MINUTES HOSPITAL EMORY - 3 3 [facility] OUTPATIEN [facility] OFFICE 82112 JESSY JESSY OUTPATIEN 3 3 JOANNA JOANNA T VISIT 15 MINUTES OFFICE 47129 CHINO HALI CHINO HALI OUTPATIEN 3 3 T VISIT 25 MINUTES HOSPITAL EMORY - 2 2 [facility] OUTPATIEN [facility] OFFICE 32640 JESSY JESSY OUTPATIEN 2 2 JOANNA JOANNA T VISIT 15 MINUTES HOSPITAL EMORY - 2 2 [facility] OUTPATIEN [facility] OFFICE 47408 JESSY JESSY OUTPATIEN 2 2 JOANNA JOANNA T VISIT 15 MINUTES HOSPITAL EMORY - 2 2 [facility] OUTPATIEN [facility] EMORY - 2 2 [facility] OUTPATIEN [facility] EMORY - 2 2 [facility] OUTPATIEN [facility] OFFICE 08421 SURYA SURYA OUTPATIEN 2 2 NAN NAN T VISIT 15 MINUTES OFFICE 32892 JESSY JESSY OUTPATIEN 2 2 JOANNA JOANNA T VISIT 15 MINUTES HOSPITAL EMORY - 2 2 [facility] OUTPATIEN [facility] EMORY - 1 1 [facility] OUTPATIEN [facility] EMORY - 1 1 [facility] OUTPATIEN [facility] T OFFICE 92449 COLORECTA BOBO OUTPATIEN 1 1 L SURGIAL [facility] T NEW 30 MINUTES ASSOCIATE OFFICE 49232 [place] CHNIO HALI OUTPATIEN 1 1 MEDICAL T VISIT SERV 25 FOUNDATIO MINUTES OFFICE 79975 TAWNYA LAL OUTPATIEN 1 1 MEDICAL T VISIT SERV 25 FOUNDATIO [facility] H[facility]PITAL EMORY - 1 1 [facility] - 1 1 [facility] OUTPATI[facility] EMORY - 1 1 [facility] 1 [facility] EM[facility] 1 1 [facility] OUTPATI[facility] OFFICE 07098 TAWNYA LAL OUTPATIEN 1 1 MEDICAL T VISIT SERV 25 FOUNDATIO MINUTES OFFICE 08237 [facility] 1 [facility] T VISIT CLINIC 15 PSC MINUTES OFFICE 62425 [facility] 1 1 [facility] T VISIT INTERNAL 15 MEDI MINUTES [facility] UNIVERS[facility] - 1 1 [facility] T OFFICE 08641 [facility] 1 1 [place] AND T VISIT PHYSICIAN 15 S [facility] EMORY - 0 0 [facility] OUTPATIEN [facility] OFFICE 74888 TAWNYA LAL OUTPATIEN 0 0 MEDICAL T VISIT SERV 25 FOUNDATIO MINUTES EMERGENCY 99798 [facility] KI 0 0 BRANDY LITA DEPARTMEN EMERGENCY T VISIT PHYS HIGH/URGE NT SEVERITY HOSPITAL EMORY - 0 0 [facility] OUTPATIEN [facility] EMORY - 0 0 [facility] T EMERGENCY 31642 EDIL BETANCOURT 0 0 EMERGENCY GRE DEPARTMEN SERVICES T VISIT HIGH/URGE NT SEVERITY EMERGENCY 35577 EMORY 0 0 [facility] DEPARTMEN INC T VISIT LIMITED/M INOR PROB OFFICE 51271 TAMMIE PEDROZA OUTPATIEN 0 0 LTH JR THO T VISIT UROLOGY 10 PSC MINUTES OFFICE 21429 TAMMIE PEDROZA OUTPATIEN 0 0 LTH JR THO T VISIT UROLOGY 15 PSC MINUTES [facility]PITAL [facility] - 0 0 E[facility] OUTPATIEN T EMERGENCY 33703 EMORY 0 0 [facility] DEPARTMEN INC T VISIT HIGH/URGE NT SEVERITY EMERGENCY 28494 EDIL HUDSON DEPT 0 0 EMERGENCY TYESHA VISIT SERVICES HIGH SEVERITY& THREAT [facility] OUTPATIEN INC T [facility] - 0 0 HOSPITAL INPATIENT EMERGENCY 98628 EDIL LAINEZ DEPT 0 0 EMERGENCY VISIT SERVICES HIGH SEVERITY& THREAT FUN OFFICE 80959 TAW[facility]A LULÚ LAL OUTPATIEN 0 0 MEDICAL T VISIT SERV 25 FOUNDATIO [facility] EMORY - 0 0 [facility] OUTPATIEN INC T OFFICE 26733 [facility] DIVYA JARAMILLO OUTPATIEN 0 0 MEDICAL T VISIT SERV 25 FOUNDATIO MINUTES OFFICE 31505 TA[facility] STOKES OUTPATIEN 0 0 MEDICAL SIM A T VISIT SERV 40 FOUNDATIO MINUTES OFFICE 53074 TAW[facility] CHINO OUTPATIEN 0 0 MEDICAL VARINDER T VISIT SERV 15 FOUNDATIO [facility] H[facility]PITAL EMORY - 0 0 [facility] OUTPATIEN INC T OFFICE 79444 TAWNYA CHINO OUTPATIEN 0 0 MEDICAL VARINDER T VISIT SERV 15 FOUNDATIO MINUTES OFFICE 62758 TAWNYA CHINO, OUTPATIEN 0 0 MEDICAL VARINDER T VISIT SERV 15 FOUNDATIO MINUTES OFFICE 88214 [facility] OUTPATIEN 9 9 LUIS [place] T VISIT INTERNAL 15 MED MINUTES OFFICE 37584 TAWNYA CHINO OUTPATIEN 9 9 MEDICAL VARINDER T VISIT SERV 25 FOUNDATIO MINUTES HOSPITAL EMORY - 9 9 [facility] OUTPATIEN INC T HOSPITAL EMOYR - 9 9 [facility] OUTPATIEN INC T HOSPITAL EMORY - 9 9 [facility] OUTPATIEN INC T OFFICE 75515 TAWNYA CHINO, CONSULTAT 9 9 MEDICAL VARINDER ION SERV NEW/ESTAB FOUND[facility]IO PATIENT 80 MIN HOSPITAL EMORY - 9 9 [facility] OUTPATIEN INC T OFFICE 78655 [place] KAI OUTPATIEN 9 9 [place] , VISIT INTERNAL MITRA F 15 MED MINUTES HOSPITAL EMORY - 9 9 [facility] OUTPATIEN INC T OFFICE 04178 [place] KAI OUTPATIEN 9 9 [facility], VISIT INTERNAL MITRA F 15 MED MINUTES HOSPITAL EMORY - 9 9 [facility] OUTPATIEN INC T HOSPITAL EMORY - 9 9 [facility] OUTPATIEN INC T EMERGENCY 89934 EMORY 9 9 [facility] DEPARTMEN INC T VISIT LOW/MODER SEVERITY EMERGENCY 42767 Shannon AGARWAL 9 EMERGENCY [facility] T VISIT MODERATE ASSOCIATE SEVERITY [facility] EMORY - 9 9 [facility] OUTPATIEN INC T EMERGENCY 92578 EMORY 9 9 [facility] DEPARTMEN INC T VISIT LIMITED/M INOR PROB EMERGENCY 99218 EDIL SOKAN, 9 9 EMERGENCY [facility] O T VISIT MODERATE ASSOCIATE SEVERITY S OFFICE 86753 [place] MCKEMIE OUTPATIEN 9 9 Cate SMITH JR VISIT INTERNAL MITRA F 15 MED MINUTES OFFICE 58207 RAFA CRAIG, OUTPATIEN 9 9 SAPNA Arevalo T VISIT 25 MINUTES OFFICE 04862 [place] MCKEMIE OUTPATIEN 9 9 Cate SMITH JR VISIT INTERNAL MITRA F 15 MED MINUTES HOSPITAL EMORY - 8 8 [facility] OUTPATIEN INC T OFFICE 50377 [place] MCKEMIE OUTPATIEN 8 8 Cate SMITH JR VISIT INTERNAL MITRA F 15 MED MINUTES OFFICE 78470 [place] MCKEMIE OUTPATIEN 8 8 Cate SMITH JR VISIT INTERNAL MITRA F 15 MED MINUTES HOSPITAL EMORY - 8 8 [facility] OUTPATIEN INC T EMERGENCY 09640 EMORY 8 8 [facility] INC T VISIT HIGH/URGE NT SEVERITY HOSPITAL EMORY - 8 8 [facility] OUTPATIEN INC T OFFICE 76681 [place] MCKEMIE OUTPATIEN 8 8 Cate SMITH JR VISIT INTERNAL MITRA F [address] - 8 8 [facility] T MED CTR EMERGENCY [address] ST 8 8 [facility] T VISIT MED CTR LOW/MODER SEVERITY OFFICE 84213 [place] MCKEMIE OUTPATIEN 8 8 Cate SMITH JR VISIT INTERNAL MITRA F 25 MED MINUTES OFFICE 26898 [place] ALYSHA, OUTPATIEN 8 8 LUIS FINK T VISIT INTERNAL 15 MED MINUTES OFFICE 88117 [facility] OUTPATIEN 8 8 [facility] T VISIT CLINIC OF CLINIC OF 15 MINUTES NEREYDA DAWN [facility] OFFICE 01203 NAVEEN HODGE OUTPATIEN 8 8 WON Esposito VISIT 15 MINUTES
--- OUTSIDE RECORDS SUMMARY | 2017-02-06 09:22 | External Medical Summary Rpt ---
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 TERIOR VIEW RADEX 28523 [place] ABDOMEN 1 1 MEDICAL CK IMAGING ANTEROPOS ASS TERIOR VIEW RADEX 35953 EMORY CAT ABDOMEN 1 1 [facility] INC INC ANTEROPOS TERIOR VIEW MRI 79540 EMORY CAT SPINAL 1 [facility] CANAL INC INC THORACIC W/O CONTRAST MATRL MRI 35783 EMORY CAT SPINAL 1 [facility] CANAL INC INC CERVICAL W/O CONTRAST MATRL 3D 75142 EMORY CAT RENDERING 1 [facility] W/INTERP INC INC & POSTPROCE SS SUPERVISI ON RADEX 13276 EMORY CAT ABDOMEN 1 1 [facility] INC INC ANTEROPOS TERIOR VIEW URINE 64761 EOMRY CAT 1 [facility] TEST INC INC VISUAL COLOR CMPRSN METHS CUL 94002 EMORYSWATHI CRUZON PRSMPTV 1 [facility] PTHGNC INC INC ORGANISMS SCR DNS CHART SPECIAL 81616 PATHOLOGY PATHOLOGY STAIN 1 & & GROUP 1 CYTOLOGY CYTOLOGY MICROORGA [facility] I&R ANES 63008 [facility] UPPER GI 1 ANESTH MIRTA ENDOSCOPY [place] [address] EMORY CAT INFUSION 1 [facility] THERAPY INC INC PROPHYLAX [place] [address] PATHOLOGY PATHOLOGY SURG 1 & & PATHOLOGY CYTOLOGY CYTOLOGY LAB LAB GROSS&TYESHA ROSCOPIC EXAM EGD 34719 [place] HAL[place] TRANSORAL 1 MEDICAL BIOPSY SERV SINGLE/[place] [address] EMORY CAT INFUSION 1 [facility] THERAPY/P INC INC ROPHYLAXI S /DX 1ST TO 1 HR LIPID 61304 COMBINED COMBINED PANEL 1 PHYSICIAN PHYSICIAN S LA S LA HEMOGLOBI 10654 COMBINED COMBINED N 1 PHYSICIAN PHYSICIAN GLYCOSYLA S LA S LA LAKISHA A1C RADEX 52729 [place] ABDOMEN 1 1 MEDICAL CK IMAGING ANTEROPOS ASS TERIOR VIEW COLLECTIO 00998 COMBINED COMBINED N VENOUS 1 PHYSICIAN PHYSICIAN BLOOD S LA S LA VENIPUNCT URE URNLS DIP [address] STICK/TAB CLINIC CLINIC LET RGNT PSC PSC AUTO W/O MICROSCOP Y CULTURE 63635 COMBINED COMBINED BACTERIAL 1 PHYSICIAN PHYSICIAN S DON MAGANA QUANTTAT[place] [address] LAB KIM LAB KIM PARATHORM 1 AMERIC AMERIC ONE HOLDING HOLDING RADIOLOGI 39993 [facility] 1 Y Y CHEST 2 [facility]PITAL [facility]PITAL VIEWS FRONTAL&L ATERAL COLLECTIO 96554 [facility] N VENOUS 1 LTH JR THO BLOOD UROLOGY VENIPUNCT PSC URE URNLS DIP 07954 [facility] 1 LTH LTH STICK/TAB UROLOGY UROLOGY LET RGNT PSC PSC AUTO W/O MICROSCOP Y BASIC 59841 EM[facility] CAT METABOLIC 0 [facility] PANEL INC INC CALCIUM TOTAL COLLECTIO 97225 EMORY CAT N VENOUS 0 [facility] BLOOD INC INC VENIPUNCT URE RADIOLOGI 67884 [facility]AN[facility] PENA C EXAM 0 MEDICAL CK CHEST 2 IMAGING VIEWS ASS FRONTAL&L ATERAL BLOOD 54410 EMORY CAT COUNT 0 [facility] COMPLETE INC INC AUTO&AUTO DIFRNTL WBC RADEX ABD 30050 [facility] KI COMPL 0 BRANDY LITA AQT ABD EMERGENCY W/S/E/D PHYS VIEWS 1 VIEW CH RADEX 27894 [facility] [place] ABDOMEN 1 0 RADIOLOGY ANA ANTEROPOS TERIOR VIEW RADEX 20277 [facility] [place] ABDOMEN 1 0 RADIOLOGY ANA ANTEROPOS TERIOR VIEW LITHOTRIP 07692 [facility] SY 0 LTH JR THO XTRCORP UROLOGY SHOCK PSC WAVE ANES 88226 ANESTHESI JERILYN HEA LITHOTRP 0 A [facility]TR[facility]P ASSOCIATE SHOCK S, PSC WAVE W/O WATER BATH CYSTO 95215 [facility] W/INSERT 0 LTH JR THO URETERAL UROLOGY STENT PSC CULTURE 87187 EM[facility] CAT BACTERIAL 0 [facility] INC [place] [address] EMORY CRUZON INFUSION 0 [facility] THERAPY/P INC INC ROPHYLAXI S /DX 1ST TO 1 HR THERAPEUT 00514 EMORY CAT IC 0 [facility] INJECTION INC INC IV PUSH EACH NEW DRUG ANES 07045 SUBURBAN MCGROARTY TRURL 0 ANESTHESI ROSA FRAGMNTJ A PSC MANJ&/RMV L URETERAL CALCULUS CYSTO 02488 [facility] W/INSERT 0 LTH JR THO URETERAL UROLOGY STENT PSC URNLS DIP 46917 [facility] 0 [facility] STICK/TAB LET REAGENT AUTO MICROSCOP Y CULTURE 32593 LAB KIM LAB KIM BACTERIAL 0 AMERIC AMERIC HOLDING HOLDING QUANTTATI VE COLONY COUNT URINE CALCULUS 23496 [facility] QUANTITAT 0 [facility] HAIM CHEMICAL BASIC 81077 [facility] METABOLIC 0 [facility] PANEL CALCIUM TOTAL COLLECTIO 13310 [facility] N VENOUS 0 [facility] BLOOD VENIPUNCT URE BLOOD 48223 [facility] COUNT 0 [facility] COMPLETE AUTOMATED CYSTO 71539 [facility] W/URETERO 0 LTH JR THO SCOPY UROLOGY W/RMVL/MA PSC [place] BLOOD 51378 EMORY CAT COUNT 0 [facility] COMPLETE INC INC AUTO&AUTO DIFRNTL WBC CT PELVIS 04801 [place] W/O 0 MEDICAL [place] [address] [place] ABDOMEN 0 MEDICAL CK W/O IMAGING CONTRAST ASS MATERIAL BASIC 15703 EMORY CAT METABOLIC 0 [facility] [place] [address] EMORY CAT INFUSION 0 [facility] THERAPY INC INC PROPHYLAX IS/DX EA HOUR CULTURE 46264 EMORY CAT BACTERIAL 0 [facility] INC INC QUANTTATI VE COLONY COUNT URINE 3D 46568 EMORY CAT RENDERING 0 [facility] INC INC W/INTERP& POSTPROC DIFF WORK STATION URNLS DIP 67370 EMORY CAT 0 [facility] STICK/TAB INC INC LET REAGENT AUTO MICROSCOP Y THERAPEUT 68170 EMORY CAT IC 0 [facility] INJECTION INC [place] [address] EMORY CAT INFUSION 0 [facility] THERAPY/P INC INC ROPHYLAXI S /DX 1ST TO 1 HR CYSTO 42721 [facility] W/SIMPLE 0 LTH LT REMOVAL UROLOGY UROLOGY STONE & ASC ASC STENT INITIAL 41740 [facility] 0 [facility]DAY UROLOGY 70 PSC MINUTES ANES [address] TRURL 0 A FRAGMNTJ ASSOCIATE MANJ&/RMV S, PSC L URETERAL CALCULUS CYSTO 21858 [facility]ON[facility] YOVANY W/INSERT 0 LTH JR THO URETERAL UROLOGY STENT PSC RADEX 96353 [facility] [place] LUN[place]ER[place] JAM ABDOMEN 1 0 RADIOLOGY ANTEROPOS TERIOR VIEW CYSTO 55297 [facility] W/URETERO 0 LTH JR THO SCOPY UROLOGY W/LITHOTR PSC IPSY TRNSURETH 560 [facility] REMOVAL [address] [place] [address] OBST FROM URETER&RE NAL PELV OTHER 5732 [facility] CYSTOSCOP [address] [place] [address] HOSPITAL Y URETEROSC 5631 [facility] OPY [address] [place] [address] HOSPITAL URETERAL 598 [facility] CATHETERI [address] [place] [address] [place] [address] [place] ABDOMEN 0 MEDICAL CK W/O IMAGING CONTRAST ASS MATERIAL CT PELVIS 66805 [place] W/O 0 MEDICAL CK CONTRAST IMAGING MATERIAL ASS 25 67307 LAB KIM LAB KIM HYDROXY 0 AMERIC AMERIC INCLUDES HOLDING HOLDING FRACTIONS IF PERFORMED COLLECTIO 19796 COMBINED COMBINED N VENOUS 0 PHYSICIAN PHYSICIAN BLOOD S LA S LA VENIPUNCT URE COMPREHEN 37540 COMBINED COMBINED SIVE 0 PHYSICIAN PHYSICIAN METABOLIC S LA S LA PANEL LIPID 85342 COMBINED COMBINED PANEL 0 PH[place] [address] LAB KIM LAB KIM FREE 0 AMERIC AMERIC [place] [address] COMBINED COMBINED THYROID 0 PHYSICIAN PHYSICIAN STIMULATI S LA S LA NG HORMONE TSH COLONOSCO 18748 [place] CH[place] HAL[place] PY 0 MEDICAL W/BIOPSY SERV SINGLE/[place] [address] EMORY CAT INFUSION 0 [facility] THERAPY INC INC PROPHYLAX IS/DX EA HOUR ANES 17572 [facility] TAPIA GLE LOWER 0 ANESTH INTESTINE OF THE [place]UE [place] [address] PATHOLOGY PATHOLOGY SURG 0 & & PATHOLOGY CYTOLOGY CYTOLOGY LAB LAB GROSS&[place] [address] EMORY CAT INFUSION 0 [facility] THERAPY/P INC INC ROPHYLAXI S /DX 1ST TO 1 HR URINE 20041 EM[facility] CAT 0 [facility] TEST INC INC [place] [address] EMORY CAT ACTIVATED 0 [facility] ECG INC INC RECORD MONITOR 30 [place] [address] EMORY QUINN ACTIVTD 0 [facility], ECG [facility] W/R&I PROF SERV </30 DAYS ECHO 34457 EMORY CAT TTHRC R-T 0 [facility] 2D INC INC W/WOM-MOD E COMPL SPEC&[place] [address] COMBINED COMBINED THYROID 0 PHYSICIAN PHYSICIAN STIMULATI S LAB S LAB NG HORMONE TSH BASIC 00453 COMBINED COMBINED METABOLIC 0 PHYSICIAN PHYSICIAN PANEL [place] [address] COMBINED COMBINED THYROID 0 PHYSICIAN PHYSICIAN STIMULATI S LAB S LAB NG HORMONE TSH COLLECTIO 40248 COMBINED COMBINED N VENOUS 0 PHYSICIAN PHYSICIAN BLOOD S LAB S LAB VENIPUNCT URE HEPATIC 56548 COMBINED COMBINED FUNCTION 0 PHYSICIAN PHYSICIAN PANEL S LAB S LAB LIPID 33378 COMBINED COMBINED PANEL 0 PHYSICIAN PHYSICIAN S LAB S LAB BLOOD 66930 COMBINED COMBINED COUNT 0 PHYSICIAN PHYSICIAN COMPLETE S LAB S LAB AUTO&AUTO DIFRNTL WBC SBSQ 37753 [facility] 0 DERRICK DERRICK CARE/DAY 15 MINUTES INITIAL 84968 [facility] 0 DERRICK DERRICK CARE/DAY 50 MINUTES IAADIADOO 85678 [facility], 9 NORDHEIM KRYSTYNA A INFLUENZA INTERNAL [place]EL V [address] PATHOLOGY PATHOLOGY SURG 9 & & PATHOLOGY CYTOLOGY CYTOLOGY LAB LAB GROSS&TYESHA ROSCOPIC EXAM BIOPSY 01769 EMORY CAT LIVER 9 [facility] NEEDLE INC INC PERCUTANE OUS MODERATE 58369 LJ JARVIS 9 MEDICAL INEZ SAME IMAGING PHYS/QHP ASSOCIATE EACH ADDL S 15 [place] [address] EMORY CAT INFUSION 9 [facility] THERAPY/P INC INC ROPHYLAXI S /DX [address] [place] [address] [place] [address] EMORY CAT GUIDANCE 9 [facility] NEEDLE INC INC PLACEMENT MODERATE 22620 [place], SEDATJ 9 MEDICAL INEZ SAME IMAGING PHYS/QHP ASSOCIATE 5/>YRS S INIT 30 MIN SPCL STN 82707 PATHOLOGY PATHOLOGY 2 I&R 9 & & EXCPT CYTOLOGY CYTOLOGY MICROORG/ LAB LAB ENZYME/IM CYT 3D 14795 EMORY CAT RENDERING 9 [facility] INC INC W/INTERP& [place] [address] EMORY CAT ABDOMEN 9 [facility] W/O INC INC CONTRAST MATERIAL TECHNETIU A9541 EMORY CAT M TC-99M 9 [facility] SULFUR INC INC COLLOID DX UP TO 20 MCI GASTRIC 29126 EMORY CAT EMPTYING 9 [facility] IMAGING INC INC STUDY COMPREHEN 12955 EMORY CAT SIVE 9 [facility] METABOLIC INC INC PANEL IADNA 28355 EMORY CAT HEPATITIS 9 [facility] C QUANT INC INC & REVERSE TRANSCRIP TION FLUORESCE 79681 EMORY CAT NT 9 [facility] NONNFCT INC INC AGT ANTB TITER EA ANTIBODY THROMBOPL 35561 EMORY CAT ASTIN 9 [facility] TIME INC INC PARTIAL PLASMA/WH OLE BLOOD MICROSOMA 39118 EMORY CAT L 9 [facility] ANTIBODIE INC INC S EACH PROTHROMB 32675 EMORY EMORY IN TIME 9 [facility] INC INC COLLECTIO 56709 EMORY CAT N VENOUS 9 [facility] BLOOD INC INC VENIPUNCT URE BLOOD 52768 EMORY CAT COUNT 9 [facility] COMPLETE INC INC AUTO&[place] [address] EMORY CAT GAMMAGLOB 9 [facility] ULIN [place] [address] [place], ABDOMINAL 9 MEDICAL INEZ REAL IMAGING TIME ASSOCIATE W/IMAGE S DOCUMENTA TION OPHTH 98820 ROB RIVAS, [facility] 9 CHERELLE A CHERELLE A XM&EVAL COMPRHNSV ESTAB PT 1/> LEVONORGE J7302 [facility] STREL-RLS 9 [facility] INTRAUTER SARAH N CNTRACPT 52 MG URINE 52582 [facility] N[facility] TEST [facility]IN[facility] OF VISUAL SARAH COLOR CMPRSN METHS SCR G0145 PATHOLOGY PATHOLOGY CYTOPATH 9 & & CERV/VAG CYTOLOGY CYTOLOGY SCR LAB LAB AUTO&MNL RSCR PHYS REMOVAL 67695 [facility] INTRAUTER 9 [facility] IN[facility]IN[facility] OF DEVICE SARAH IUD SCREENING 87412 [place], 9 MEDICAL INEZ MAMMOGRAP IMAGING HY ASSOCIATE BILATERAL S COMPUTER- 03140 [place], AIDED 9 MEDICAL INEZ DETECTION IMAGING ASSOCIATE SCREENING S MAMMOGRAP HY ANTINUCLE 21606 LAB KIM LAB KIM AR 9 AMERIC AMERIC ANTIBODIE HOLDING HOLDING S LAM COLLECTIO 51862 COMBINED COMBINED N VENOUS 9 PHYSICIAN PHYSICIAN BLOOD S LAB S LAB VENIPUNCT URE ACUTE 72199 LAB KIM LAB KIM HEPATITIS 9 AMERIC AMERIC PANEL HOLDING HOLDING ALPHA-1-A 45860 LAB KIM LAB KIM NTITRYPSI 9 AMERIC AMERIC [place] [address] COMBINED COMBINED AMYLASE 9 PHYSICIAN PHYSICIAN S LAB S LAB CERULOPLA 06783 LAB KIM LAB KIM SMIN 9 [employer]IC [place] [address] COMBINED COMBINED IRON 9 PHYSICIAN PHYSICIAN S LAB S LAB IMMUNOASS 00089 LAB KIM LAB KIM AY 9 AMERIC AMERIC ANALYTE HOLDING HOLDING QUAL/SEMI QUAL MULTIPLE STEP IRON 32248 COMBINED COMBINED BINDING 9 PHYSICIAN PHYSICIAN CAPACITY S LAB S LAB RADIOLOGI 43870 [place] Whit PINEDA EXAM 9 MEDICAL LORNA P CHEST 2 IMAGING VIEWS ASSOCIATE FRONTAL&L S ATERAL US SOFT 94323 EMORY CAT TISSUE 9 [facility] HEAD & INC INC NECK REAL TIME IMGE DOCM PRESSURIZ 65703 EMORY CAT ED/NONPRE 9 [facility] SSURIZED INC INC INHALATIO N TREATMENT HEMOGLOBI 61260 COMBINED COMBINED N 9 PHYSICIAN PHYSICIAN GLYCOSYLA S LAB S LAB LAKISHA A1C COLLECTIO 86715 COMBINED COMBINED N VENOUS 9 PHYSICIAN PHYSICIAN BLOOD [place] [address] COMBINED COMBINED THYROID 9 PHYSICIAN PHYSICIAN STIMULATI S LAB S LAB NG HORMONE TSH LIPID 02332 COMBINED COMBINED PANEL 9 PHYSICIAN PHYSICIAN S LAB S LAB COMPREHEN 55816 COMBINED COMBINED SIVE 9 PHYSICIAN PHYSICIAN METABOLIC S LAB S LAB PANEL COMPREHEN 76663 COMBINED COMBINED SIVE 9 PHYSICIAN PHYSICIAN METABOLIC S LAB S LAB PANEL LIPID 07070 COMBINED COMBINED PANEL 9 PHYSICIAN [place] [address] COMBINED COMBINED THYROID 9 PHYSICIAN PHYSICIAN STIMULATI S LAB S LAB NG HORMONE TSH COLLECTIO 84454 COMBINED COMBINED N VENOUS 9 PHYSICIAN PHYSICIAN BLOOD S LAB S LAB VENIPUNCT URE HEMOGLOBI 37660 COMBINED COMBINED N 9 PHYSICIAN PHYSICIAN GLYCOSYLA S LAB S LAB LAKISHA A1C BLD GLU A4253 [facility] TEST/REAG 8 PHARMACY PHARMACY T STRIPS #591 #591 HOME [place] GLU MON-50 [place] [address] EMORY CAT THYROID 8 [facility] STIMULATI INC INC NG HORMONE TSH US SOFT 55186 EMORY CAT TISSUE 8 [facility] HEAD & INC INC NECK REAL TIME IMGE DOCM RADIOLOGI 59717 EMORY CAT C EXAM 8 [facility] CHEST 2 INC INC VIEWS FRONTAL&L ATERAL GONADOTRO 58314 EMORY CAT PIN 8 [facility] FOLLICLE INC INC STIMULATI NG HORMONE GONADOTRO 96016 EMORY CAT PIN 8 [facility]OS[facility] LUTEINIZI INC INC NG HORMONE COLLECTIO 92231 EMORY CAT N VENOUS 8 [facility] BLOOD INC INC VENIPUNCT URE PHYSICAL 97251 EMORY CAT THERAPY 8 [facility] EVALUATIO INC INC N THERAPEUT 32956 EMORY CAT IC PX 1/> 8 [facility] AREAS INC INC EACH 15 MIN EXERCISES E-STIM G0283 EMORY CAT 1/> AREAS 8 [facility] OTH THAN INC INC WND CARE PART TX PLAN SIMPLE 72849 EMORY CAT REPAIR 8 [facility] F/E/E/N/L INC INC /M 2.5CM/< IM ADM 58115 EM[facility] CAT PRQ ID 8 [facility] SUBQ/IM INC INC NJXS 1 VACCINE TDAP 70737 EMORY CAT VACCINE 7 8 [facility] YRS/> IM INC INC RADEX [address] [facility] 8 [facility] COMPLETE REGIONAL REGIONAL MINIMUM 2 MED CTR MED CTR VIEWS INJECTION J1885 ST [address] [place] [address] [facility] REGIONAL MED CTR MED CTR TROMETHAM INE PER [address] PROPH/DX 8 [facility] NJX REGIONAL REGIONAL SUBQ/IM MED CTR MED CTR Encounters Encounter Start End Date Code Location Performer Type Date OFFICE 22799 [facility] OUTPATIEN 7 7 [facility] VISIT [facility] 15 PSC MINUTES OFFICE 33882 [facility] 7 7 L SURGIAL T VISIT 40 ASSOCIATE MINUTES HOSPITAL EMORY - 7 7 [facility] OUTPATIEN [facility] UNIVERSIT - 7 7 Y OF OUTPATIEN [facility] EMORY - 7 7 [facility] EMORY - 7 7 [facility] EMORY - 7 7 [facility] OUTPATIEN [facility] OFFICE 48637 [facility] OUTPATIEN 7 7 L SURGIAL T NEW 45 MINUTES ASSOCIATE EMERGENCY 54325 [facility] DE[facility] 6 6 PRIMARY VISIT CARE HIGH PHYSICIAN SEVERITY& S THREAT FUN OFFICE 85317 [place] [facility] OUTPATIEN 6 6 [facility] T VISIT INTERNAL 15 MED MINUTES [facility], 6 6 HOME [facility]PATIENT [facility], 6 6 HOME [facility]PATIENT [facility], 6 6 HOME INPATIENT [facility] OFFICE 44468 [place] [facility] 6 6 PATRICIA JR THO T VISIT CLINIC 15 PSC MINUTES HOSPITAL EMORY - 6 6 [facility] OUTPATIEN INC T HOME [facility], 6 6 HOME INPATIENT HEALTH AGENCY EMERGENCY 79740 [facility] DE[facility] 6 6 PRIMARY KET VISIT CARE HIGH PHYSICIAN SEVERITY& S THREAT [facility], 6 6 HOME INPATIENT HEALTH AGENCY OFFICE 38081 [place] OUTPATIEN 6 6 PATRICIA JR THO T VISIT CLINIC 15 PSC MINUTES OFFICE 73323 [facility] OUTPATIEN 6 6 PATRICIA JR T VISIT CLINIC 15 PSC MINUTES HOSPITAL EMORY - 6 6 [facility] OUTPATIEN INC T OFFICE 10339 [facility] CINTHYA OUTPATIEN 6 6 PATRICIA II EAR T VISIT CLINIC 25 PSC MINUTES OFFICE 65488 [place] [facility] OUTPATIEN 5 5 [facility] T VISIT INTERNAL 15 MED MINUTES HOME [facility], 5 5 HOME INPATIENT HEALTH AGENCY [facility] EMORY - 5 5 [facility] OUTPATIEN INC T HOSPITAL EMORY - 4 4 [facility] OUTPATIEN INC HOSPITAL EMORY - 4 4 [facility] OUTPATIEN INC T Emergency FELIBERTO Emory MARSHALL DO (ER) 4 13:08 4 15:46 [facility] EMERGENCY 08624 JOANNA COOK OSCAR DEPT 4 4 VISIT HIGH SEVERITY& THREAT [facility] CENTRAL - 3 3 [facility] OUTPATIEN HOSP T OFFICE 27555 [facility] JESSY OUTPATIEN 3 3 JOANNA JOANNA T VISIT [facility]UTES [facility] N OUTPATIEN COMM[facility]ITY T HOSPITA OFFICE 60953 [facility] OUTPATIEN 3 3 JOANNA JOANNA T VISIT 15 MINUTES HOSPITAL EMORY - 3 3 [facility] OUTPATIEN [facility] OFFICE 35343 JESSY JESSY OUTPATIEN 3 3 JOANNA JOANNA T VISIT 15 MINUTES OFFICE 56326 [facility] CHINO HALI OUTPATIEN 3 3 T VISIT 25 MINUTES HOSPITAL EMORY - 2 2 [facility] OUTPATIEN [facility] OFFICE 02134 JESSY JESSY OUTPATIEN 2 2 JOANNA JOANNA T VISIT 15 MINUTES [facility]OSPITAL EMORY - 2 2 [facility] OFFICE 52864 JESSY JESSY OUTPATIEN 2 2 JOANNA JOANNA T VISIT 15 MINUTES [facility]OSPITAL EM[facility] - 2 2 [facility] EMORY - 2 2 [facility] EMORY - 2 2 [facility] OFFICE 72813 SURYA SURYA OUTPATIEN 2 2 NAN NAN T VISIT 15 MINUTES OFFICE 72250 JESSY JESSY OUTPATIEN 2 2 JOANNA JOANNA T VISIT 15 MINUTES [facility]OSPITAL EMORY - 2 2 [facility] EMORY - 1 1 [facility] EMORY - 1 1 [facility] T OFFICE 05068 COLORECTA BOBO OUTPATIEN 1 1 [facility] T NEW 30 MINUTES [facility]OCI[place] OFFICE 76047 [place] CHINO HALI OUTPATIEN 1 1 MEDICAL T VISIT SERV 25 FOUNDATIO MINUTES OFFICE 25153 TAWNYA LAL OUTPATIEN 1 1 MEDICAL T VISIT SERV 25 FOUNDATIO [facility] EMORY - 1 1 [facility] EMORY [facility] [address] [facility] OUTPATIEN [facility] HOSPITAL EMORY - [address] [facility] [address] [facility] [address] [facility] OUTPATIEN [facility] EMORY - [address] [facility] OUTPATIEN [facility] OFFICE 87819 TAWNYA LAL OUTPATIEN 1 1 MEDICAL T VISIT SERV 25 FOUNDATIO MINUTES OFFICE 42127 [facility] 1 [facility] T VISIT CLINIC 15 PSC MINUTES OFFICE 98883 [place] [facility] 1 1 [facility] T VISIT INTERNAL 15 MEDI MINUT[facility] UNIVERSIT - [address] [facility] T OFFICE 88848 [facility] 1 1 [place] T VISIT PHYSICIAN 15 S ASSIST [facility] EMORY - 0 0 [facility]PAT[facility] OFFICE 61207 TAWNYA LAL OUTPATIEN 0 0 MEDICAL T VISIT SERV 25 FOUNDATIO MINUTES EMERGENCY 48496 [facility] KI 0 0 BRANDY LITA DEPARTMEN EMERGENCY T VISIT PHYS HIGH/URGE NT SEVERITY [facility]OSPITAL [facility] - 0 0 [facility]PAT[facility]PITAL [facility] - 0 0 [facility] T EMERGENCY 72410 EDIL BETANCOURT 0 0 EMERGENCY GRE DEPARTMEN SERVICES T VISIT HIGH/URGE NT SEVERITY EMERGENCY 25694 EM[facility] 0 0 [facility] DEPARTMEN INC T VISIT LIMITED/M INOR PROB OFFICE 81023 TAMMIE PEDROZA OUTPATIEN 0 0 LTH JR THO T VISIT UROLOGY 10 PSC MINUTES OFFICE 57076 TAMMIE PEDROZA OUTPATIEN 0 0 LTH JR THO T VISIT UROLOGY 15 PSC MINUTES [facility] - [facility] 0 [facility] OUTPATI[facility] T EMERGENCY 83217 EM[facility] 0 0 [facility] DEPARTMEN INC T VISIT HIGH/URGE NT SEVERITY EMERGENCY 37144 EDIL HUDSON DEPT 0 0 EMERGENCY TYESHA VISIT SERVICES HIGH SEVERITY& [facility] T [facility] - 0 0 HOSPITAL INPATIENT EMERGENCY 52630 EDIL LAINEZ DEPT 0 0 EMERGENCY VISIT SERVICES HIGH SEVERITY& THREAT FUN OFFICE 69881 TAWNYA LULÚ LAL OUTPATIEN 0 0 MEDICAL T VISIT SERV 25 [facility]IO [facility] [facility] T OFFICE 88511 [facility] DIVYA JARAMILLO OUTPATIEN 0 0 MEDICAL T VISIT SERV 25 FOUNDATIO MINUTES OFFICE 70447 [facility] STOKES OUTPATIEN 0 0 MEDICAL SIM A T VISIT SERV 40 FOUNDATIO MINUTES OFFICE 05621 [facility] CHINO OUTPATIEN 0 0 MEDICAL VARINDER T VISIT SERV 15 FOUNDATIO [facility] EM[facility] - 0 0 [facility]PATIEN INC T OFFICE 57375 [facility] CHINO OUTPATIEN 0 0 MEDICAL VARINDER T VISIT SERV 15 FOUNDATIO MINUTES OFFICE 90633 [facility] [place], OUTPATIEN 0 0 MEDICAL VARINDER T VISIT SERV 15 FOUNDATIO MINUTES OFFICE 25201 [facility] 9 9 LUIS [place] T VISIT INTERNAL 15 MED MINUTES OFFICE 88571 [facility] OUTPATIEN 9 9 MEDICAL VARINDER T VISIT SERV 25 [facility]AT[facility] MINUTES [facility] - 9 9 [facility] - 9 9 [facility] - 9 9 [facility] T OFFICE 74401 [facility] [place], CONSULTAT 9 9 MEDICAL VARINDER ION SERV NEW/ESTAB [facility] PATIENT 80 MIN [facility] - 9 9 [facility] T OFFICE 87194 [place] K[facility] OUTPATIEN 9 9 N[place] , VISIT INTERNAL MITRA F 15 MED MINUTES [facility]OSP[facility] - 9 9 [facility] T OFFICE 94899 [place] [facility] OUTPATIEN 9 9 [facility], VISIT INTERNAL MITRA F 15 MED MINUTES [facility]OS[facility]ITAL EM[facility] - 9 9 [facility] - 9 9 [facility] INC T EMERGENCY 63260 [facility] 9 9 [facility] DEPARTMEN INC T VISIT LOW/MODER SEVERITY EMERGENCY 35587 Shannon AGARWAL 9 EMERGENCY [facility] T VISIT MODERATE ASSOCIATE SEVERITY [facility] EMORY - 9 9 [facility] OUTPATIEN INC T EMERGENCY 58213 EM[facility] 9 9 [facility] DEPARTMEN INC T VISIT LIMITED/M INOR PROB EMERGENCY 91335 EDIL SOKAN, 9 9 EMERGENCY [facility] O T VISIT MODERATE ASSOCIATE SEVERITY S OFFICE 21135 [facility] MCKEMIE OUTPATIEN 9 9 Cate SMITH JR VISIT INTERNAL MITRA F 15 MED MINUTES OFFICE 30016 RAFA CRAIG, OUTPATIEN 9 9 SAPNA Arevalo T VISIT 25 MINUTES OFFICE 79605 [facility] OUTPATIEN 9 9 Cate SMITH JR VISIT INTERNAL [facility] F 15 MED MINUTES [facility]OSP[facility] EM[facility] - 8 8 [facility] INC T OFFICE 64564 [facility] OUTPATIEN 8 8 Cate SMITH JR VISIT INTERNAL MITRA F 15 MED MINUTES OFFICE 99032 [facility] MCK[facility] OUTPATIEN 8 8 Cate SMITH JR VISIT INTERNAL MITRA F 15 MED MINUTES [facility]OSPITAL EM[facility] - 8 8 [facility] OUT[facility] INC T EMERGENCY 82621 [facility] 8 8 [facility] INC T VISIT HIGH/URGE NT SEVERITY HOSPITAL EM[facility] - 8 8 [facility] OUT[facility] INC T OFFICE 52873 [facility] MCK[facility] OUTPATIEN 8 8 Cate SMITH JR VISIT INTERNAL MITRA F [address] - 8 8 [facility] T MED CTR EMERGENCY [address] 8 [facility] T VISIT MED CTR LOW/MODER SEVERITY OFFICE 12270 [facility] MCKEMIE OUTPATIEN 8 8 Cate SMITH JR VISIT INTERNAL MITRA F 25 MED MINUTES OFFICE 40435 [place] ALYSHA, OUTPATIEN 8 8 LUIS FINK T VISIT INTERNAL 15 MED MINUTES OFFICE 99812 [facility] 8 8 [facility] T VIS[facility] 15 MINUTES [facility] OFF[facility] 22255 NAVEEN HODGE OUTPATIEN 8 8 WON Esposito VISIT 15 MINUTES
--- OUTSIDE RECORDS SUMMARY | 2017-02-06 09:30 | External Medical Summary Rpt ---
Author Author , EDUARDO Organization [employer] Address Unknown Phone [email or web address] Care Team Providers Care Motor Assembly Supervisor Name Role Phone [facility] Unavailable Unavailable PHYSICIANS, [facility] GILMAR SCHAFER Unavailable Unavailable GILMAR RODRIGUEZ BEINEKE Unavailable Unavailable MICHAEL BESSON OSCAR, BESSON Unavailable Unavailable OSCAR BESSON, KRYSTYNA A, Unavailable Unavailable BESSON, KRYSTYNA A GARCIA, GARCIA Unavailable Unavailable GARCIA ALL, GARCIA ALL Unavailable Unavailable LUNDBERG, LUNDBERG Unavailable Unavailable LUNDBERG JAM, LUNDBERG JAM Unavailable Unavailable [facility], Unavailable Unavailable [facility] NAVEEN TAPIA, NAVEEN Unavailable Unavailable WILLIE [facility], Unavailable Unavailable [facility], Unavailable [facility]available [facility] Unavailable [facility]available [facility] SURGIAL Unavailable Unavailable ASSOCIATE, [facility]GIAL ASSOCIATE [facility] Unavailable Unavailable [facility], [facility] Unavailable Unavailable [facility], [facility]available Unavailable LAB, [facility] Unavailable Unavailable [facility], [facility] Unavailable Unavailable [...] JESSY JOANNA, Unavailable Unavailable JESSY JOANNA BECCA TYESHA, BECCA Unavailable Unavailable TYESHA NAZANIN HUDSON S, Unavailable Unavailable NAZANIN HUDSON S [facility], Unavailable Unavailable [facility] STACEY LEWIS, STACEY WAY Unavailable Unavailable SAPNA CRAIG, Unavailable Unavailable SAPNA CRAIG [facility] Unavailable Unavailable INC, [facility] ALEKS ENCARNACION HARVEY, Unavailable Unavailable ROB NEWTON KAYA Unavailable Unavailable CHERELLE RIVAS, Unavailable Unavailable CHERELLE RIVAS [facility], Unavailable Unavailable [facility] JOSÉ MIGUEL ROSA, Unavailable Unavailable JOSÉ MIGUEL ROSA JOSÉ MIGUEL ROSA, Unavailable Unavailable JOSÉ MIGUEL ROSA PA ISIDORO, PA ISIDORO Unavailable Unavailable SURYA NAN, SURYA Unavailable Unavailable NAN SURYA NAN, SURYA Unavailable Unavailable NAN [facility], [facility] GIBSON TYESHA, GIBSON TYESHA Unavailable Unavailable KOSTELIC, KOSTELIC Unavailable Unavailable KOSTELIC ANA, Unavailable Unavailable KOSTELIC ANA [facility] Unavailable Unavailable [facility], [facility] Unavailable Unavailable [facility], [facility] KI LITA, KI Unavailable Unavailable LITA TAPIA GLE, TAPIA GLE Unavailable Unavailable KERNSDERRICK KERNS, Unavailable Unavailable DERRICK [facility] Un[facility] ADRIÁN HAM, ADRIÁN HAM Unavailable Unavailable MCGROARTY ROSA, Unavailable Unavailable MCGROARTY ROSA KAI LAMA, Unavailable Unavailable MITRA CONRAD JR, JR Unavailable Unavailable F, MITRA QUINN JR F MERCHANT KET, Unavailable Unavailable MERCHANT KET LORNA PINEDA, Unavailable Unavailable LORNA PINEDA [facility] Unavailable Unavailable [facility], [facility] Unavailable Unavailable [facility], [facility] Unavailable Unavailable LAB, [facility] Unavailable Unavailable LAB, [facility] CHINO HALI, CHINO HALI Unavailable Unavailable CHINO HALI, CHINO HALI Unavailable Unavailable CHINO, VARINDER, CHINO, Unavailable Unavailable VARINDER DIVYA, DIVYA Unavailable Unavailable JERILYN, JERILYN Unavailable Unavailable JERILYN HEA, JERILYN HEA Unavailable Unavailable RICE THO, RICE THO Unavailable Unavailable RICE THO, RICE THO Unavailable Unavailable JOANNA OSCAR, JOANNA OSCAR Unavailable Unavailable JOANNA OSCAR, JOANNA OSCAR Unavailable Unavailable [id number], Unavailable Unavailable [id number] Unavailable Unavailable [id number] [address] [id number], [facility] [address] # [id number] MENDES II EAR, Unavailable Unavailable [facility] DIVYA JARAMILLO, DIVYA LIS Unavailable Unavailable SIM STOKES, Unavailable Unavailable SIM STOKES SIMPSON J Unavailable Unavailable SLABPAULA JR, SLABJAKOBRENETTA Unavailable Unavailable JR SLABAURENETTA JR THO, Unavailable Unavailable SLABPAULA JR THO SOKAN BAB, SOKAN BAB Unavailable Unavailable SOKAN, MARCIA O, Unavailable Unavailable SOKAN, MARCIA O [facility], Unavailable Unavailable [facility], Unavailable Unavailable [facility] Unavailable Unavailable MED CTR, [facility] STACK, STACK Unavailable Unavailable CARTAGENA, CARTAGENA Unavailable Unavailable CARTAGENA RAY, CARTAGENA Unavailable Unavailable RAY BETANCOURT GRE, BETANCOURT Unavailable Unavailable GRE NIKI KIBRY, NIKI Unavailable Unavailable MIRTA [facility], Unavailable Unavailable [facility] Unavailable Unavailable [facility], [facility]available Unavailable #591, [facility] Unavailable Unavailable #591, [facility] # Unavailable Unavailable [id number], [facility] # [id number] [facility] Unavailable Unavailable AGENCY[facility] Unavailable Unavailable OF [facility], [facility] Unavailable [facility]available OF [facility], [facility] Purpose Continuity of Care Document - 06-29-2007 through 2016 Problems Code Diagnosis DOS Provider Status N200 CALCULUS OF 12-20-2016 [facility] KIDNEY [facility] PSC 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 NERVOUS SYSTEM UNS K5909 OTHER 11-11-2016 [facility] CONSTIPATIO SURGIAL N ASSOCIATE R140 ABDOMINAL 11-11-2016 [facility] DISTENSION SURGIAL GASEOUS ASSOCIATE R159 FULL 11-11-2016 COL[facility] INCONTINENC SURGIAL E OF FECES ASSOCIATE K5730 DIVERTICULO 10-15-2016 [facility] LG MEDICAL INTEST W/O IMAGING ASS PERF/ABSC W/O BLEED K5901 SLOW 10-15-2016 [facility] TRANSIT [facility] CONSTIPATIO IMAGING ASS N N816 RECTOCELE 10-01-2016 [facility] Z8719 PERSONAL 09-20-2016 [facility] HISTORY MEDICAL OTHER IMAGING ASS DISEASES DIGESTIVE SYSTEM Z720 TOBACCO USE 09-04-2016 COLORECTAL SURGIAL ASSOCIATE N390 URINARY 06-08-2016 [facility] TRACT CARE INFECTION PHYSICIANS SITE NOT SPECIFIED R1032 LEFT LOWER 06-08-2016 [facility] PR[facility] QUADRANT CARE PAIN PHYSICIANS R1030 LOWER 06-07-2016 [facility] ABDOMINAL [facility]LEY PAIN INTERNAL UNSPECIFIED MED 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 UNS 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 R32 UNSPECIFIED 05-31-2016 [facility] URINARY HEALTH INCONTINENC AGENCY E R350 FREQUENCY 04-15-2016 NEW OF [place] [place] PSC R3915 URGENCY OF 04-15-2016 NEW URINATION [facility] P[facility] I10 ESSENTIAL 03-25-2016 [facility] PRIMARY VALLEY HYPERTENSIO INTERNAL N MED [id number] POISONING 03-25-2016 [facility] OTH OPIOIDS VALLEY SELF-HARM INTERNAL INITIAL MED ENCNTR [id number] POISONING 03-25-2016 [facility] BENZODIAZEP VAL[place] INTERNAL SELF-HARM MED INITIAL ENC Z1231 ENCOUNTER 03-06-2016 [facility] INC NEOPLASM BREAST T52371 PERSONAL 03-06-2016 [facility] HISTORY OF MEDICAL URINARY IMAGING ASS CALCULI M545 LOW BACK 11-21-2015 [facility] PAIN CARE PHYSICIANS R300 DYSURIA 11-21-2015 [facility] PHYSICIANS N202 CALCULUS OF 10-09-2015 NEW KIDNEY [place] WITH [facility]INIC PSC CALCULUS OF URETER N201 CALCULUS OF 08-30-2015 NEW URETER [facility] PSC K5900 CONSTIPATIO 06-27-2015 NEW N [place] UNSPECIFIED CLINIC PSC R1031 RIGHT LOWER 06-27-2015 NEW QUADRANT [facility] [place] PAIN [facility]IN[facility] PSC R150 INCOMPLETE 06-27-2015 NEW DEFECATION [facility] PSC E39438 OTHER 05-23-2015 [facility] MUSCLE VALLEY SPASM INTERNAL MED [id number] CONCUSSION 05-23-2015 [facility] W/LOC UNS VALLEY DURATION INTERNAL INITIAL MED ENCOUNTER M617POH SPRAIN 05-23-2015 [facility] JOINT & LIG VALLEY UNS PARTS INTERNAL NECK MED SUBSEQUENT ENC P34381 POST-TRAUMA 05-17-2015 [facility] TIC MEDICAL HEADACHE IMAGING ASS UNS NOT INTRACTABLE M542 CERVICALGIA 05-17-2015 [facility] R4020 UNSPECIFIED 05-17-2015 [facility] COMA [facility]ICAL [facility] ASS [id number] UNSPECIFIED 05-17-2015 [place] INJURY OF MEDICAL HEAD IMAGING ASS INITIAL ENCOUNTER [id number] UNSPECIFIED 05-17-2015 [facility] INJURY OF MEDICAL NECK IMAGING ASS INITIAL ENCOUNTER 4550 INTERNAL 12-02-2014 NEW HEMORRHOIDS [place] WITHOUT CLINIC PSC MENTION COMP 79940 ESOPHAGEAL 12-02-2014 NEW REFLUX [place] [facility] PSC 58648 UNS 12-02-2014 [facility] IS W/O MENTION HEMORR 61351 OTHER 12-02-2014 NEW SYMPTOMS [place] INVOLVING CLINIC PSC DIGESTIVE SYSTEM OTHER 5920 CALCULUS OF 11-30-2014 [facility] INC V7189 OBSERVATION 11-30-2014 [place] OTHER MEDICAL SPECIFIED IMAGING ASS SUSPECTED CONDITIONS V2542 SURVEILLANC 07-12-2014 [facility] E PREV PRSC PHYSICIANS INTRAUTERN GROUP CNTRACPT DEVC V259 UNSPECIFIED 07-12-2014 [facility] PHYSICIANS CONTRACEPTI GROUP VE MANAGEMENT 39196 FULL 04-29-2014 NEW INCONTINENC [place] E OF FECES CLINIC PSC 01657 PAINFUL 03-04-2014 [facility] RESPIRATION MEDICAL IMAGING ASS 7867 ABNORMAL 03-04-2014 [place] CHEST MEDICAL SOUNDS IMAGING ASS 5921 CALCULUS OF 02-06-2014 [facility] URETER MEDICAL IM[facility]ING ASS 83014 HEMATURIA 02-06-2014 [facility] UNSPECIFIED MEDICAL IMAGING ASS 22885 ABDOMINAL 02-06-2014 [place] PAIN OTHER MEDICAL SPECIFIED IMAGING ASS SITE 46557 COR 11-04-2013 [facility] UNSPEC INC TYPE VESSEL OMAHA/CHARLES T 7880 RENAL COLIC 07-25-2013 JOANNA OSCAR 85098 DIAB W/O 05-24-2013 CLINIC COMP TYPE PHARMACY II/UNS NOT STATED UNCNTRL 3499 UNSPECIFIED 04-23-2013 [facility] NERVOUS HOSP SYSTEM 19499 ABDOMINAL 04-23-2013 RICE THO PAIN, UNSPECIFIED SITE 23585 UNSPECIFIED 03-25-2013 JESSY JOANNA CONSTIPATIO N 7061 [...] JESSY NOT JOANNA SPECIFIED ACUTE OR CHRONIC 58919 OBST 07-29-2012 [facility]IC [facility] BRONCHITIS INC W/ACUTE BRONCHITIS 04695 OTHER 07-29-2012 JEAN DISEASES OF CK LUNG NOT ELSEWHERE CLASSIFIED 7291 UNSPECIFIED 07-29-2012 JESSY MYALGIA JOANNA AND MYOSITIS 5363 GASTROPARES 06-29-2012 CHINO HALI IS 5718 OTHER 06-29-2012 CHINO HALI CHRONIC NONALCOHOLI C LIVER DISEASE 41694 DIVERTICULO 06-12-2012 JE[facility] SIS OF CK COLON 5738 OTHER 06-12-2012 JE[facility] SPECIFIED CK DISORDERS OF LIVER 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 SITE UNSPEC V4551 PRESENCE OF 06-12-2012 JEAN CK INTRAUTERIN E CONTRACEPTI VE DEVICE 87973 CHEST PAIN 03-17-2012 [place] UNSPECIFIED TH ROSA 2720 PURE 03-11-2012 [place] HYPERCHOLES TH ROSA TEROLEMIA 49271 OTHER CHEST 03-11-2012 [place] PAIN TH ROSA V762 SCREENING 02-27-2012 PATHOLOGY & FOR CYTOLOGY [facility] LAB NEOPLASM OF THE CERVIX 26218 OTHER 12-20-2011 [place] DISEASES OF MEDICAL SPLEEN IMAGING ASS 96675 OTHER 12-20-2011 [place] SPECIFIED MEDICAL DISORDER OF IMAGING ASS KIDNEY AND URETER 7912 HEMOGLOBINU 11-06-2011 [facility] 5990 URINARY 10-24-2011 [place] JR TRACT KELBY INFECTION SITE NOT SPECIFIED 7881 DYSURIA 10-24-2011 [place] KELBY 7948 NONSPECIFIC 08-29-2011 [facility] ABNORMAL [facility] RESULTS INC LIVR FUNCTION STUDY 462 ACUTE 08-02-2011 SUR[facility] PHARYNGITIS 485 BRONCHOPNEU 08-02-2011 SUR[facility] MONIA ORGANISM UNSPECIFIED 7862 COUGH 08-02-2011 SURYA CONLEY 66264 UNSPECIFIED 07-17-2011 JESSY JOANNA ARTHROPATHY MULTIPLE SITES 17958 PAIN IN 07-17-2011 [place] JOINT, HAND MEDICAL IMAGING ASS 63628 DISORDER OF 07-17-2011 [facility] BONE AND [facility] CARTILAGE INC UNSPECIFIED 97546 OTHER 07-02-2011 RIVAS KAYA VITREOUS OPACITIES 7231 CERVICALGIA 11-07-2010 [facility] 7241 PAIN IN 11-07-2010 [place] THORACIC MEDICAL SPINE IMAGING ASS 59823 ATROPHIC 10-29-2010 PATHOLOGY & GASTRITIS CYTOLOGY WITHOUT LAB MENTION OF HEMORRHAGE 93702 OTHER SPEC 10-29-2010 [place] [facility] GASTRITIS SERV WITHOUT [facility] MENTION HEMORRHAGE 17660 DYSPHAGIA 10-29-2010 COMMUNITY UNSPECIFIED ANESTH OF THE BLUE 86648 ABDOMINAL 10-29-2010 [place] [facility] PAIN, SERV GENERALIZED FOUNDATIO 7823 EDEMA 10-09-2010 [facility] [place] 7850 UNSPECIFIED 09-05-2010 [facility] TACHYCARDIA [place] V1009 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 2893 LYMPHADENIT 07-12-2010 [facility] UNSPECIFIED EXCEPT MESENTERIC 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 24712 WHEEZING 07-12-2010 [facility] 6256 FEMALE 07-09-2010 [facility] STRESS H UROLOGY INCONTINENC PSC E 11664 SHORTNESS 06-20-2010 [facility] MEDICAL IMAGING ASS V5869 LONG-TERM 06-20-2010 [facility] (CURRENT) [facility] USE OF INC OTHER MEDICATIONS 4556 UNSPEC 05-28-2010 [place] [facility] HEMORRHOIDS SERV WITHOUT FOUNDATIO MENTION COMPLICATIO N 96347 ABDOMINAL 03-13-2010 [facility] PAIN RIGHT [facility] LOWER INC QUADRANT 591 HYDRONEPHRO 02-23-2010 [facility] 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 9982 ACCIDENTAL 02-23-2010 [facility] PUNCTURE/[facility] CERATION DURING PROC NEC 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 4553 EXTERNAL 02-05-2010 [place] [facility] HEMORRHOIDS SERV WITHOUT FOUNDATIO MENTION COMP 5690 ANAL AND 02-05-2010 [facility]AL [facility] POLYP INC 5693 HEMORRHAGE 02-05-2010 PATHOLOGY & OF RECTUM CYTOLOGY AND ANUS LAB 43807 OTHER 10-05-2009 [facility] DYSRHYTHMIA PROF SERV S 73731 THYROTOX 07-03-2009 DERRICK KERNS W/O GOITER/OTH CAUSE W/O CRISIS 10593 OTHER 05-03-2009 [facility] DYSPNEA AND VALLEY INTERNAL RESPIRATORY MED ABNORMALITI ES V5861 LONG-TERM 04-04-2009 [facility] (CURRENT) [facility] USE OF INC ANTICOAGULA NTS V251 ENCOUNTER 02-28-2009 [facility] INSERT/MEG [facility] CONI IU CLINIC OF CONTRACEPTI SARAH VE DEVICE V7231 ROUTINE 02-28-2009 [facility] GYNECOLOGIC [facility] AL CLINIC OF EXAMINATION SARAH V7612 OTHER 02-28-2009 [place] SCREENING MEDICAL MAMMOGRAM IMAGING ASSOCIATES 3384 CHRONIC 02-08-2009 LAB [facility] PAIN AMERIC SYNDROME HOLDING 63483 OTHER 02-08-2009 [facility] MALAISE AND PHYSICIANS FATIGUE LAB 89639 OTHER VOICE 12-08-2008 [place] AND MEDICAL RESONANCE IMAGING DISORDERS ASSOCIATES 4660 ACUTE 11-23-2008 [facility] BRONCHITIS [facility] INC 51458 ASTHMA, 11-23-2008 [facility] UNSPECIFIED EMERGENCY , SERVICES UNSPECIFIED ASSOCIATES STATUS 4558 UNSPECIFIED 11-20-2008 [facility] HEMORRHOIDS INC WITH OTHER COMPLICATIO N 7242 LUMBAGO 10-31-2008 [facility] INTERNAL MED 7810 ABNORMAL 10-31-2008 [facility] INVOLUNTARY VALLEY MOVEMENTS INTERNAL MED 04370 OTHER 07-07-2008 [facility] CHRONIC VALLEY PAIN INTERNAL MED 460 ACUTE 07-07-2008 [facility] NASOPHARYNG VALLEY ITIS INTERNAL MED 2409 GOITER, 03-01-2008 [place] UNSPECIFIED MEDICAL IMAGING ASSOCIATES 6260 ABSENCE OF 03-01-2008 [facility] MENSTRUATIO [facility] N INC 43853 LOSS OF 03-01-2008 [place] WEIGHT MEDICAL IMAGING ASSOCIATES 81286 INSOMNIA 02-26-2008 [facility] UNSPECIFIED VALLEY INTERNAL MED 33412 PAIN IN 01-19-2008 [facility] JOINT, [facility] SHOULDER INC REGION V571 OTHER 01-19-2008 [facility] PHYSICAL [facility] THERAPY INC 33154 OPEN WOUND 12-13-2007 [facility] FACE UNSPEC [facility] HOS[facility] SITE INC WITHOUT MENTION COMP V065 NEED 12-13-2007 [facility] PROPHYLACTI [facility] C INC VACCINATION W/TETANUS-D [facility] 47590 ENTHESOPATH 12-07-2007 [facility] Y OF VALLEY UNSPECIFIED INTERNAL SITE MED 8409 SPRAIN&STRA 12-01-2007 ST [facility] UNSPEC REGIONAL SITE MED CTR SHOULDER&UP PER ARM Medications Na ND Rx Da Fi Fi Am Da Di Ph RX Ph St me C No te ll ll ou ys ag ar # ys at rm s nt no ma ic us Or Da si cy ia de te s n re d DI 00 06 10 2 10 28 RI 88 MS Ac AZ 17 -0 -2 0. TE 64 LL ti EP 23 7 9- 00 43 ER ve AM 92 20 20 0 AI 77 11 11 D CA 10 0 PH RO AR L MG MA J CY TA BL 03 ET 93 8 # 03 93 DI 00 04 10 2 10 28 RI 87 MS Ac AZ 17 -1 -0 0. TE 90 LL ti EP 23 2- 3- 00 50 ER ve AM 92 20 20 0 AI 77 11 11 D CA 10 0 PH RO AR L MG MA Terrie [employer] TA BL 03 ET 93 8 # 03 93 DI 00 04 09 2 10 28 RI 87 MS Ac AZ 17 -1 -0 0. TE 90 LL ti EP 23 2- 2- 00 50 ER ve AM 92 20 20 0 AI 77 11 11 D CA 10 0 PH RO AR L MG MA Terrie CY TA BL 03 ET 93 8 # 03 93 DI 00 06 07 1 10 28 RI 88 MS Ac AZ 17 -0 -2 0. TE 96 LL ti EP 23 7- 9- 00 72 ER ve AM 92 20 20 0 AI 77 11 11 D CA 10 0 PH RO AR L MG RADHA Falcon CY TA BL 03 ET 93 8 # 03 93 DI 00 06 07 1 10 28 RI 88 MS Ac AZ 17 -0 -0 0. TE 96 LL ti EP 23 7- 3- 00 72 ER ve AM 92 20 20 0 AI 77 11 11 D CA 10 0 PH RO AR L MG RADHA Falcon CY TA BL 03 ET 93 8 # 03 93 DI 00 06 06 2 10 28 RI 88 MS Ac AZ 17 -0 -0 0. TE 64 LL ti EP 23 7- 7- 00 43 ER ve AM 92 20 20 0 AI 77 11 11 D CA 10 0 PH RO AR L MG RADHA Falcon CY TA BL 03 ET 93 8 # 03 93 DI 00 03 05 2 10 28 RI 87 MS Ac AZ 17 -0 -0 0. TE 29 LL ti EP 23 1- 1- 00 06 ER ve AM 92 20 20 0 AI 77 11 11 D CA 10 0 PH RO AR L MG RADHA Falcon CY TA BL 03 ET 93 8 # 03 93 DI 00 03 04 2 10 28 RI 87 MS Ac AZ 17 -0 -0 0. TE 29 LL ti EP 23 1- 3- 00 06 ER ve AM 92 20 20 0 AI 77 11 11 D CA 10 0 PH RO AR L MG RADHA [employer] CY TA BL 03 ET 93 8 # 03 93 DI 00 03 03 2 10 28 RI 87 MS Ac AZ 17 -0 -0 0. TE 29 LL ti EP 23 1- 1- 00 06 ER ve AM 92 20 20 0 AI 77 11 11 D CA 10 0 PH RO AR L MG MA Terrie CY TA BL 03 ET 93 8 # 03 93 DI 00 01 02 1 90 30 RI 86 MS Ac AZ 17 -0 -0 .0 TE 56 LL ti EP 23 9- 1- 00 74 ER ve AM 92 20 20 AI 77 11 11 D CA 10 0 PH RO AR L MG MA J CY TA BL 03 ET 93 8 # 03 93 DI 00 12 12 90 30 RI 86 MS Ac [place] 17 -3 -3 .0 TE [...] A LL CA C PS UL E [place] 00 12 12 24 4 RI 86 [...] 0 90 30 WA 44 MC Ac [place] 37 -2 -2 .0 L- 90 KE ti AZ 84 6- 6- 00 MA 08 MS ve OL 00 20 20 RT 0 E AM 50 10 10 JR 1 1 PH AR WI MG MA LL CY IA TA # M BL F ET 10 05 91 DI 00 09 11 2 90 30 RI 85 MS Ac AZ 17 -2 -2 .0 TE 20 LL ti EP 23 9- 4- 00 48 ER ve AM 92 20 20 AI 77 10 10 D CA 10 0 PH RO AR L MG MA J CY TA BL 03 ET 93 8 # 03 93 AL 00 10 10 0 90 30 WA 44 MC Ac [place] 37 -2 -2 .0 L- 89 KE ti AZ 84 8- 8- 00 MA 38 MS ve OL 00 20 20 RT 8 E AM 50 10 10 JR 1 1 PH AR WI MG MA LL CY IA TA # M BL F ET 10 05 91 DI 00 09 10 2 90 30 RI 85 MS Ac AZ 17 -2 -2 .0 TE 20 LL ti EP 23 9- 7- 00 48 ER ve AM 92 20 20 AI 77 10 10 D CA 10 0 PH RO AR L MG MA J CY TA BL 03 ET 93 8 # 03 93 DI 00 09 09 2 90 30 RI 85 MS Ac AZ 17 -2 -3 .0 TE 20 LL ti EP 23 9- 0- 00 48 ER ve AM 92 20 20 AI 77 10 10 D CA 10 0 PH RO AR L MG MA J CY TA BL 03 ET 93 8 # 03 93 00 06 08 2 90 30 RI 83 MS Ac 55 -0 -1 .0 TE 61 LL ti 50 1- 1- 00 93 ER ve 16 20 20 AI 40 10 10 D CA 5 PH RO AR L MA J CY 03 93 8 # 03 93 00 06 07 2 90 30 RI 83 MS Ac 55 -0 -1 .0 TE 61 [...] 06 06 2 90 30 RI 83 MS Ac AZ 17 -0 -1 .0 TE 61 LL ti EP 23 1- 5- 00 93 ER ve AM 92 20 20 AI 77 10 10 D CA 10 0 PH RO AR L MG MA J CY TA BL 03 ET 93 8 # 03 93 DI 00 03 05 2 90 30 RI 82 MS Ac AZ 17 -2 -1 .0 TE 67 LL ti EP 23 3- 6- 00 01 ER ve AM 92 20 20 AI 77 10 10 D CA 10 0 PH RO AR L MG MA J CY TA BL 03 ET 93 8 # 03 93 DI 00 03 04 2 90 30 RI 82 MS Ac AZ 17 -2 -2 .0 TE 67 LL ti EP 23 3- 0- 00 01 ER ve AM 92 20 20 AI 77 10 10 D CA 10 0 PH RO AR L MG MA J CY TA BL 03 ET 93 8 # 03 93 DI 00 03 03 2 90 30 RI 82 MS Ac AZ 17 -2 -2 .0 TE [...] 00 60 30 WA 44 MC Ac [place] 37 -3 -1 .0 L- 79 KE ti AZ 84 1- 0- 00 MA 29 MS ve OL 00 20 20 RT 9 [...] 00 60 30 WA 44 BE Ac [place] 37 -2 -1 .0 L- 78 SS [...] 01 60 30 WA 44 No Ac [place] 37 -2 -0 .0 L- 68 t ti AZ 84 3- 3- 00 MA 39 Av ve OL 00 20 20 RT 9 ai AM 50 08 08 la 1 1 PH bl AR e MG MA CY TA BL #5 ET 91 CL 00 06 07 00 60 30 RI 73 No Ac ON 09 -2 -0 .0 TE 87 t ti AZ 30 4- 3- 00 45 Av ve EP 83 20 20 AI ai AM 30 08 08 D la 1 1 PH bl AR e MG M #3 TA 93 BL 8 ET CL 00 03 06 02 60 30 RI 72 No Ac ON 09 -2 -0 .0 TE 60 t ti AZ 30 4- 5- 00 54 Av ve EP 83 20 20 AI ai AM 30 08 08 D la 1 1 PH bl AR e MG M #3 TA 93 BL 8 ET AL 00 05 06 00 60 30 WA 44 No Ac [place] 37 -2 -0 .0 L- 68 t ti AZ 84 3- 5- 00 MA 39 Av ve OL 00 20 20 RT 9 ai AM 50 08 08 la 1 1 PH bl AR e MG MA CY TA BL #5 ET 91 CL 00 03 05 01 60 30 RI 72 No Ac ON -2 -0 .0 TE 60 t ti [...] 60 30 RI 72 No Ac ON -2 -0 .0 TE 16 t ti AZ 30 5- 7- 00 81 Av ve EP 83 20 20 AI ai AM 30 08 08 D la 1 1 PH bl AR e MG M #3 TA 93 BL 8 ET CL 00 12 03 02 60 30 RI 70 No Ac ON -0 -2 .0 TE 86 t ti [...] HOSP HOSP YRS/ INC INC > IM Procedures Procedure DOS Code Location Performer Comment RADEX 79022 [facility] [place] [facility] ABDOMEN 1 7 RADIOLOGY ANTEROPOS TERIOR VIEW LITHOTRIP 34558 [facility] 7 [facility] XTRCORP CLINIC SHOCK PSC WAVE ANES 72812 ANESTHESI JERILYN LITHOTRP 7 A XTRCORP ASSOCIATE SHOCK S PSC WAVE W/O WATER BATH URNLS DIP 64086 [facility] 7 [facility] STICK/TAB CLINIC LET RGNT PSC AUTO W/O MICROSCOP Y RADEX 70679 [place] GARCIA COLON 7 MEDICAL BARIUM IMAGING ENEMA ASS W/WO KUB RADEX 63668 [facility] COLON 7 Y OF Y OF BARIUM MIRELLA VU ENEMA E HOS E HOS W/WO KUB RADEX 15439 [place] BEINEKE ABDOMEN 1 7 MEDICAL IMAGING ANTEROPOS ASS TERIOR VIEW RADEX 63147 [facility] CAT ABDOMEN 1 7 MEM HOS[facility]OS[facility] INC INC ANTEROPOS TERIOR VIEW RADEX 30457 [facility] ABDOMEN 1 7 [facility]OS[facility] INC INC ANTEROPOS TERIOR VIEW PROCTOSGM 45999 COLORECTA DIVYA DSC RGD 7 L SURGIAL DX W/WO COLLJ ASSOCIATE SPEC BR/[place] [address] [facility] [place] CARTAGENA ABDOMEN & 6 RADIOLOGY PELVIS W/O CONTRAST MATERIAL URNLS DIP 57059 [facility] JESSY 6 VALLEY STICK/TAB INTERNAL LET [...] HEALTH /PAD/UNDG AGENCY AGENCY RMNT INCONT EA DISPBL T4535 [facility] 6 HOME HOME ELD/GUARD HEALTH HEALTH /PAD/UNDG AGENCY AGENCY RMNT INCONT EA ADLT SZD T4525 [facility] DISPBL 6 HOME HOME INCONT HEALTH HEALTH PROD AGENCY AGENCY UNDWEAR/P ULLON SM EA INCONTINE T4541 [facility] NCE 6 HOME HOME PRODUCT HEALTH HEALTH DISPOSABL AGENCY AGENCY E UNDPAD LARGE EA OBSERVATI 54161 [facility]ARE 6 [facility] OSCAR DISCHARGE INTERNAL MED MANAGEMEN T INITIAL 37540 [facility] OBSERVATI 6 [facility] OSCAR ON INTERNAL CARE/DAY MED 30 MINUTES ECG 81705 [facility] BREWERANTHONY ROUTINE 6 [facility] W/LEAST P 12 LDS I&R ONLY RADEX 83963 [facility] CAT ABDOMEN 1 6 [facility] ANTEROPOS TERIOR VIEW COMPUTER- [id number] [facility] CAT AIDED 6 [facility] DETECTION [facility] INC SCREENING MAMMOGRAP HY SCREENING G0202 [facility] CAT 6 [facility] MAM[facility] INC HY KIM INCL CAD WHEN PERFORMD ADLT SZD T4525 [facility] DIS[facility]BL 6 HOME HOME INCONT HEALTH HEALTH PROD AGENCY AGENCY UNDWEAR/P ULLON SM EA DISPBL T4535 [facility] LINER/SHERICE 6 HOME HOME ELD/GUARD HEALTH HEALTH /PAD/UNDG AGENCY AGENCY RMNT INCONT EA INCONTINE T4541 [facility] NCE 6 HOME HOME PRODUCT HEALTH HEALTH DISPOSABL [place] [address] [facility] [place] LUNDBERG ABDOMEN & 6 RADIOLOGY PELVIS W/O CONTRAST MATERIAL INCONTINE T4541 [facility] NCE 6 HOME HOME PRODUCT HEALTH HEALTH DISPOSABL AGENCY AGENCY E UNDPAD LARGE EA DISPBL T4535 [facility] LINER/SHERICE 6 HOME HOME ELD/GUARD HEALTH HEALTH /PAD/UNDG AGENCY AGENCY RMNT INCONT EA ADLT SZD T4526 [facility] DISPBL 6 HOME HOME INCONT HEALTH HEALTH PROD AGENCY AGENCY UNDWEAR MED EA URNLS DIP 27251 [facility] ST[facility]TAB CLIN[facility] LET RGNT PSC AUTO W/O MICROSCOP Y PT PREOP [id number] NEW NEW ORD IV 6 [facility] ABX PROPH CLINIC CLINIC ABX PSC PSC INITIATED TIME PT DOC [id number] NEW NEW NO:BURN;F 6 [facility] ALL CLINIC CLINIC FAC;WRG PSC PSC EVENT;/HO S TRANSFER PROSTHETI L8699 NEW NEW C IMPLANT 6 [facility] NOT CLINIC CLINIC OTHERWISE PSC PSC SPECIFIED CYSTO 58082 NEW NEW W/URETERO 6 [facility] SCOPY CLINIC CLINIC W/RMVL/MA PSC PSC [place] STONES CYSTO 40984 NEW NEW W/INSERT 6 [facility] URETERAL CLINIC CLINIC STENT PSC PSC ANES 61010 ANESTHESI GIBSON TYESHA TRURL 6 A FRAGMNTJ ASSOCIATE MANJ&/RM[place] [address] EMORY CAT ABDOMEN & 6 [facility] PELVIS [place] W/[place] [address] [place] GARCIA ALL HEAD/BRAI 5 MEDICAL N W/[place] [address] [place] G[place] ALL CERVICAL 5 MEDICAL SPINE W/O IMAGING CONTRAST ASS MATERIAL DISPBL T4535 [facility] LINER/SHERICE 5 HOME HOME ELD/GUARD HEALTH HEALTH /PAD/UNDG AGENCY AGENCY RMNT INCONT EA ADLT SZD T4525 [facility] DISPBL 5 HOME HOME INCONT HEALTH HEALTH PROD AGENCY AGENCY UNDWEAR/P ULLON SM EA INCONTINE T4541 [facility] NCE 5 HOME HOME PRODUCT HEALTH HEALTH DISPOSABL AGENCY [place]ENCY [place] [address] [facility] SURG 5 [facility] GROSS&TYESHA ROSCOPIC EXAM COLONOSCO 56916 ENDOSCOPY ENDOSCOPY PY 5 AND AND FLEXIBLE SURGICAL SURGICAL WITH BAND CTR O CTR O LIGATION( S) EGD 99725 ENDOSCOPY ENDOSCOPY TRANSORAL 5 AND AND BIOPSY SURGICAL SURGICAL SINGLE/MU CTR O CTR O LTIPLE RADEX 75957 [place] BEINE ABDOMEN 1 5 MEDICAL MICHAEL IMAGING ANTEROPOS ASS TERIOR VIEW REMOVAL 76758 [facility] INTRAUTER 5 PHYSICIAN WILLIE INE S GROUP DEVICE IUD INSERTION 06097 [facility] 5 PHYSICIAN PHYSICIAN INTRAUTER S GROUP S GROUP INE DEVICE IUD INC 54469 [facility] IMPLTJ 4 [facility] NEUROSTIM CLINIC ULATOR PSC ELTRD SACRAL NERVE RADIOLOGI 54440 EMORY CAT C EXAM 4 [facility] CHEST 2 INC INC VIEWS FRONTAL&L ATERAL RADEX 87307 EMORY CAT RIBS UNI 4 [facility] W/POSTERO INC INC ANT CH MINIMUM 3 VIEWS RADEX 36599 [place] BEINEKE RIBS 4 MEDICAL MICHAEL UNILATERA IMAGING L [address] [place] [address] [place] JEAN ABDOMEN & 4 MEDICAL CK PELVIS IMAGING W/O ASS CONTRAST MATERIAL ECG 45964 EMORY CAT ROUTINE 4 [facility] ECG INC INC W/LEAST 12 LDS TRCG ONLY W/O I&R ECG 16705 SINCERE BREWERSON ROUTINE 4 OSCAR OSCAR ECG W/LEAST 12 LDS I&R ONLY LITHOTRIP 80448 YOVANY PEDROZA SY 4 JR THO JR THO XTRCORP SHOCK WAVE BLD GLU A4253 CLINIC CLINIC TEST/REAG 3 PHARMACY PHARMACY T STRIPS HOME BLD GLU MON-50 LANCETS A4259 CLINIC CLINIC PER BOX 3 PHARMACY PHARMACY OF 100 RADEX ABD 94356 RICE THO RICE THO COMPL 3 AQT ABD W/S/E/[place] [address] [place] [address] MITZI CARTAGENA ABDOMEN & 3 WILLA PELVIS W/O CONTRAST MATERIAL RADIOLOGI 79888 EMORY CAT C EXAM 3 [facility] CHEST 2 INC INC VIEWS FRONTAL&L ATERAL INJECTION J3301 JESSY SAMPSON HAM 3 JOANNA TRIAMCINO LONE ACETONIDE NOS 10 MG 3D 01249 EMORY CAT RENDERING 2 [facility] INC INC W/INTERP& [place] [address] EMORY CAT ABDOMEN & 2 [facility] PELVIS INC INC W/O CONTRAST MATERIAL RADEX 42203 [facility]OM[facility] 1 2 MEDICAL CK IMAGING ANTEROPOS ASS TERIOR VIEW CATH PLMT 41886 YADI GRULLON L HRT & 2 ORTH ROAS ORTH ROSA ARTS W/NJX & ANGIO IMG S&I RADIOLOGI 98991 CENTRAL BRADY J C EXAM 2 RADIOLOGY CHEST 2 ASSOC VIEWS FRONTAL&L ATERAL ECG 34087 YADI GRULLON ROUTINE 2 ORTH ROSA ORTH ROSA ECG W/LEAST 12 LDS W/I&R SCR G0145 PATHOLOGY PATHOLOGY CYTOPATH 2 & & CERV/VAG CYTOLOGY CYTOLOGY SCR LAB LAB AUTO&MNL RSCR PHYS BLD GLU A4253 [facility] TEST/REAG 2 PHARMACY PHARMACY T STRIPS [phone] #591 HOME BLD GLU MON-50 CYSTO 71101 NEW NEW W/URETERO 2 [facility] CLINIC W/RMVL/MA PSC PSC [place] STONES CYSTO 76164 YOVANY PEDROZA W/INSERT 2 [place] [address] EMORY CAT ABDOMEN & 2 [facility] PELVIS INC INC W/O CONTRAST MATERIAL 3D 61774 EMORY CAT RENDERING 2 [facility] INC INC W/INTERP& POSTPROC DIFF WORK STATION 3D 22569 EMORY CAT RENDERING 2 [facility] INC INC W/INTERP& [place] [address] EMORY CAT ABDOMEN & 2 [facility] [place]ELVIS [place] [address] EMORY CAT ABDOMINAL 2 [facility] REAL INC INC TIME W/IMAGE DOCUMENTA TION LIPID 21418 EMORY CAT PANEL 2 [facility] INC INC RADEX 07014 EMORY CAT HAND 2 [facility] MINIMUM 3 INC INC VIEWS COLLECTIO 17784 EMORY CAT N VENOUS 2 [facility] [place]LO[place] [address] EMORY CAT THYROID 2 [facility] STIMULATI INC INC NG HORMONE TSH COMPREHEN 26878 EMORY ACT SIVE 2 [facility] METABOLIC INC INC PANEL RHEUMATOI 68443 EMORY CAT D FACTOR 2 [facility] QUANTITAT INC INC HAIM SEDIMENTA 33988 EMORY CAT TION RATE 2 [facility] RBC INC INC NON-AUTOM ATED CYCLIC 56381 EMORY CAT CITRULLIN 2 [facility] ATED INC INC PEPTIDE ANTIBODY THERAPEUT 52237 JESSY JIMÉNEZ IC 2 JOANNA JOANNA PROPHYLAC TIC/DX INJECTION SUBQ/IM 25 69731 EMORY CAT HYDROXY 2 [facility] INCLUDES INC INC FRACTIONS IF PERFORMED ANTINUCLE 65232 EMORY CAT AR 2 [facility] ANTIBODIE INC INC S LAM BLOOD 44106 EMORY CAT COUNT 2 [facility] COMPLETE INC INC AUTO&AUTO DIFRNTL WBC DETERMINA 27186 ROB KIRKPATRICK TION 2 REFRACTIV E STATE RADEX 10905 [place] JEAN ABDOMEN 1 1 MEDICAL CK IMAGING ANTEROPOS ASS TERIOR VIEW RADEX 55785 [place] JEAN ABDOMEN 1 1 MEDICAL CK IMAGING ANTEROPOS ASS TERIOR VIEW RADEX 49301 [place] JEAN ABDOMEN 1 1 MEDICAL CK IMAGING ANTEROPOS ASS TERIOR VIEW SCR G0123 PATHOLOGY PATHOLOGY CYTOPATH 1 & & CERV/VAG CYTOLOGY CYTOLOGY SCR LAB LAB CYTOTECH UND PHYS SUPV RADEX 03906 [place] JEAN ABDOMEN 1 1 MEDICAL CK IMAGING ANTEROPOS ASS TERIOR VIEW RADEX 97197 [place] JEAN ABDOMEN 1 1 MEDICAL CK IMAGING ANTEROPOS ASS TERIOR VIEW RADEX 82292 [place] JEAN ABDOMEN 1 1 MEDICAL CK IMAGING ANTEROPOS ASS TERIOR VIEW RADEX 16071 [place] JE[place] ABDOMEN 1 1 MEDICAL CK IMAGING ANTEROPOS ASS TERIOR VIEW MRI 20520 [place] JE[place] SPINAL 1 MEDICAL CK CANAL IMAGING CERVICAL ASS W/O CONTRAST MATRL MRI 54939 [place] SPINAL 1 MEDICAL CK CANAL IMAGING THORACIC ASS W/O CONTRAST MATRL 3D 97767 [place] JEAN RENDERING 1 MEDICAL CK W/INTERP IMAGING & ASS POSTPROCE SS SUPERVISI ON RADEX 24458 EMORY CAT ABDOMEN 1 1 [facility] INC INC ANTEROPOS TERIOR VIEW CUL 02445 EMORY CRUZON PRSMPTV 1 [facility] PTHGNC INC INC ORGANISMS SCR DNS CHART SPECIAL 79381 PATHOLOGY PATHOLOGY STAIN 1 & & GROUP 1 CYTOLOGY CYTOLOGY MICROORGA LAB LAB [facility] I&R URINE 74009 EMORY CAT 1 [facility] TEST INC INC VISUAL COLOR CMPRSN METHS ANES 06940 [facility] UPPER GI 1 ANESTH MIRTA ENDOSCOPY OF THE [place] [address] PATHOLOGY PATHOLOGY SURG 1 & & PATHOLOGY CYTOLOGY CYTOLOGY LAB LAB GROSS&TYESHA ROSCOPIC EXAM EGD 48201 [place] CHINO HALI TRANSORAL 1 MEDICAL BIOPSY SERV SINGLE/[place] [address] EMORY CAT INFUSION 1 [facility] THERAPY INC [place] [address] EMORY CAT INFUSION 1 [facility] THERAPY/P INC INC ROPHYLAXI S /DX 1ST TO 1 HR LIPID 18081 COMBINED COMBINED PANEL 1 PHYSICIAN PHYSICIAN S CHINO Marie LA COLLECTIO 81025 COMBINED COMBINED N VENOUS 1 PHYSICIAN PHYSICIAN BLOOD S CHINO Marie LA VENIPUNCT URE HEMOGLOBI 99282 COMBINED COMBINED N 1 PHYSICIAN PHYSICIAN GLYCOSYLA S LA S LA LAKISHA A1C RADEX 70564 [place] EJAN ABDOMEN 1 1 MEDICAL CK IMAGING ANTEROPOS ASS TERIOR VIEW URNLS DIP [address] STICK/TAB CLINIC CLINIC LET RGNT PSC PSC AUTO W/O MICROSCOP Y CULTURE 18543 COMBINED COMBINED BACTERIAL 1 PHYSICIAN PHYSICIAN S CHINO S CHINO QUANTT[place] [address] LAB KIM LAB KIM PARATHORM 1 AMERIC AMERIC ONE HOLDING HOLDING RADIOLOGI 04273 [facility] C EXAM 1 Y Y CHEST 2 [facility] VIEWS FRONTAL&L ATERAL URNLS DIP 27325 [facility] 1 [facility] STICK/TAB UROLOGY UROLOGY LET RGNT PSC PSC AUTO W/O MICROSCOP Y COLLECTIO 31642 [facility] N VENOUS 1 LTH JR THO BLOOD UROLOGY VENIPUNCT PSC URE COLLECTIO 58222 EMORY CAT N VENOUS 0 [facility] BLOOD INC INC VENIPUNCT URE BASIC 21141 EMORY CAT METABOLIC 0 [facility] PANEL INC INC CALCIUM TOTAL RADIOLOGI 77852 EMORY CAT C EXAM 0 [facility] CHEST 2 INC INC VIEWS FRONTAL&L ATERAL BLOOD 75309 EMORY CAT COUNT 0 [facility] COMPLETE INC INC AUTO&AUTO DIFRNTL WBC RADEX ABD 10497 [facility] COM[facility] 0 [facility] LITA AQT ABD EMERGENCY W/S/E/D PHYS VIEWS 1 VIEW CH RADEX 32849 [facility] [place] KOST[place]IC ABDOMEN 1 0 RADIOLOGY ANA ANTEROPOS TERIOR VIEW RADEX 91542 [facility] [place] KOST[place]IC ABDOMEN 1 0 RADIOLOGY ANA ANTEROPOS TERIOR VIEW CYSTO 76952 [facility] W/INSERT 0 LTH JR THO URETERAL UROLOGY STENT PSC LITHOTRIP 14463 [facility] SY 0 LTH JR THO XTRCORP UROLOGY SHOCK PSC WAVE ANES 29496 ANESTHESI JERILYN HEA LITHOTRP 0 A [employer] ASSOCIATE SHOCK S, PSC WAVE W/O WATER BATH CULTURE 54256 EMORY CAT BACTERIAL 0 [facility] INC INC QUANTTATI VE COLONY COUNT URINE THERAPEUT 46881 EMORYSWATHI CRUZON IC 0 [facility] INJECTION INC [place] [address] EMORYSWATHI CRUZON INFUSION 0 [facility] THERAPY/P INC INC ROPHYLAXI S /DX 1ST TO 1 HR BASIC 30301 [facility] METABOLIC 0 [facility] PANEL CALCIUM TOTAL COLLECTIO 00490 [facility] N VENOUS 0 [facility] BLOOD VENIPUNCT URE CULTURE 69276 [facility] BACTERIAL 0 [facility] QUANTTATI VE COLONY COUNT URINE BLOOD 07666 [facility] COUNT 0 [facility] COMPLETE AUTOMATED CALCULUS 70664 [facility] QUANTITAT 0 [facility] HAIM CHEMICAL URNLS DIP 17323 [facility] 0 [facility] STICK/TAB LET REAGENT AUTO MICROSCOP Y CYSTO 62995 [facility] W/INSERT 0 LTH JR THO URETERAL UROLOGY STENT PSC ANES 41013 SUBUR[facility] MCGROARTY TRURL 0 ANESTHESI ROSA FRAGMNTJ A PSC MANJ&/RMV L URETERAL CALCULUS CYSTO 17124 [facility] W/URETERO 0 [facility] W/RMVL/MA [place] STONES URNLS DIP 09692 EMORY CAT 0 [facility] STICK/TAB INC INC LET REAGENT AUTO MICROSCOP Y BLOOD 31593 EMORY CRUZON COUNT 0 [facility] COMPLETE INC INC AUTO&AUTO DIFRNTL WBC CT PELVIS 31780 [place] JEAN W/O 0 MEDICAL CK CONTRAST IMAGING MATERIAL ASS CULTURE 75211 EMORY CAT BACTERIAL 0 [facility] INC INC QUANTTATI VE COLONY COUNT URINE 3D 29456 EMORY CAT RENDERING 0 [facility] INC INC W/INTERP& [place] [address] [place] JEAN ABDOMEN 0 MEDICAL CK W/[place] [address] EMORY CAT INFUSION 0 [facility] THERAPY/P INC INC ROPHYLAXI S /DX 1ST TO 1 [place] [address] EMORY CAT INFUSION 0 [facility] THERAPY INC INC PROPHYLAX IS/DX EA HOUR THERAPEUT 05775 EMORY CAT IC 0 [facility] INJECTION INC INC IV PUSH EACH NEW DRUG BASIC 79075 EMORY CAT METABOLIC 0 [facility] PANEL INC INC CALCIUM TOTAL CYSTO 97704 [facility] W/[facility] 0 L[facility] JR THO REMOVAL UROLOGY STONE & PSC STENT ANES [address] TRURL 0 A FRAGMNTJ ASSOCIATE MANJ&/RMV S, PSC L URETERAL CALCULUS CYSTO 92022 [facility] W/INSERT 0 LTH JR THO URETERAL UROLOGY STENT PSC RADEX 75036 [facility] [place] JAM ABDOMEN 1 0 RADIOLOGY ANTEROPOS TERIOR VIEW CYSTO 70854 [facility] W/URETERO 0 LTH JR THO SCOPY UROLOGY W/LITHOTR PSC IPSY INITIAL 69800 [facility] 0 LTH JR THO CARE/DAY UROLOGY 70 PSC MINUTES TRNSURETH [address] OBST FROM URETER&RE NAL PELV URETEROSC 5631 [facility] OPY [address] [place] [address] URETERAL 598 [facility] CATHETERI [address] [place] [address] ZATION OTHER 5732 [facility] CYSTOSCOP [address] [place] [address] [place] [address] [place] JEAN ABDOMEN 0 MEDICAL CK W/O IMAGING CONTRAST ASS MATERIAL CT PELVIS 60533 [place] JEAN W/O 0 MEDICAL CK CONTRAST IMAGING MATERIAL ASS 25 32323 LAB KIM LAB KIM HYDROXY 0 AMERIC AMERIC INCLUDES HOLDING HOLDING FRACTIONS IF PERFORMED COLLECTIO 13880 COMBINED COMBINED N VENOUS 0 PHYSICIAN PHYSICIAN BLOOD S LA S LA VENIPUNCT URE LIPID 80626 COMBINED COMBINED PANEL 0 PHYSICIAN PHYSICIAN S LA S LA COMPREHEN 85778 COMBINED COMBINED SIVE 0 PHYSICIAN PHYSICIAN [place] [address] LAB KIM LAB KIM FREE 0 AMERIC AMERIC [place] [address] COMBINED COMBINED THYROID 0 PHYSICIAN PHYSICIAN STIMULATI [place] [address] PATHOLOGY PATHOLOGY SURG 0 & & PATHOLOGY CYTOLOGY CYTOLOGY LAB LAB GROSS&[place] [address] EMORY CAT INFUSION 0 [facility] THERAPY INC [place] [address] EMORY CAT INFUSION 0 [facility] THERAPY/P INC INC ROPHYLAXI S /DX 1ST TO 1 HR URINE 40959 EMORY CAT 0 [facility] TEST INC INC VISUAL COLOR CMPRSN METHS COLONOSCO 79777 [place] CHINO HALI PY 0 MEDICAL W/BIOPSY SERV SINGLE/MU FOUNDATIO LTIPLE ANES 19011 COMMUNITY TAPIA GLE LOWER 0 ANESTH INTESTINE OF THE BLUE [place] [address] EMORY QUINN ACTIVTD 0 [facility] MITRA W/R&I PROF SERV </30 [place] [address] EMORY CAT ACTIVATED 0 [facility] ECG INC INC RECORD MONITOR 30 DAYS ECHO 98261 EMORY QUINN TTHRC R-T [address] W/WOM-MOD PROF SERV E COMPL SPEC&[place] [address] COMBINED COMBINED THYROID 0 PHYSICIAN PHYSICIAN STIMULATI S [place] [address] COMBINED COMBINED THYROID 0 PHYSICIAN PHYSICIAN STIMULATI S LAB S LAB NG HORMONE TSH LIPID 80251 COMBINED COMBINED PANEL 0 PHYSICIAN PHYSICIAN S LAB S LAB HEPATIC 35884 COMBINED COMBINED FUNCTION 0 PHYSICIAN PHYSICIAN PANEL S LAB S LAB BASIC 06964 COMBINED COMBINED METABOLIC 0 PHYSICIAN PHYSICIAN PANEL S LAB S LAB CALCIUM TOTAL COLLECTIO 66921 COMBINED COMBINED N VENOUS 0 PHYSICIAN PHYSICIAN BLOOD S LAB S LAB VENIPUNCT URE BLOOD 58668 COMBINED COMBINED COUNT 0 PHYSICIAN PHYSICIAN COMPLETE S LAB S LAB AUTO&AUTO DIFRNTL WBC SBSQ 52160 [facility] 0 DERRICK DERRICK CARE/DAY 15 MINUTES INITIAL 43135 [facility] 0 DERRICK DERRICK CARE/DAY 50 MINUTES IAADIADOO 36468 [place] [facility], 9 [facility] INFLUENZA [place] V [address] PATHOLOGY PATHOLOGY SURG 9 & & PATHOLOGY CYTOLOGY CYTOLOGY LAB LAB GROSS&TYESHA ROSCOPIC EXAM BIOPSY 63060 [facility] PE[facility] LIVER 9 MEDICAL INEZ NEEDLE IMAGING PERCUTANE ASSOCIATE OUS S MODERATE 60910 [facility] CORNELIUS 9 MEDICAL INEZ SAME IMAGING PHYS/QHP ASSOCIATE EACH ADDL [place] [address] [place] [address] [facility]NA ABDOMEN 9 MEDICAL INEZ W/O IMAGING CONTRAST ASSOCIATE MATERIAL S MODERATE 60603 [facility] COR[facility]ELIUS 9 MEDICAL INEZ SAME IMAGING PHYS/QHP ASSOCIATE 5/>YRS S INIT [address] [place] [address] GHANSHYAM PENA GUIDANCE 9 MEDICAL INEZ [place] [address] EMORY CAT INFUSION 9 [facility] THERAPY/P INC INC ROPHYLAXI S /DX 1ST TO 1 HR 3D 37381 [facility] PACHECOJEAN, RENDERING 9 MEDICAL INEZ IMAGING W/INTERP& ASSOCIATE POSTPROC S DIFF WORK STATION SPCL STN 07995 PATHOLOGY PATHOLOGY 2 I&R 9 & & EXCPT CYTOLOGY CYTOLOGY MICROORG/ LAB LAB ENZYME/IM CYT TECHNETIU A9541 EMORY Marrero TC-99M 9 [facility] SULFUR INC INC COLLOID DX UP TO 20 MCI GASTRIC 28007 [facility] JEAN, EMPTYING 9 MEDICAL INEZ IMAGING IMAGING STUDY ASSOCIATE S COMPREHEN 65670 EMORY CAT SIVE 9 [facility] METABOLIC INC INC PANEL IADNA 07775 EMROY CAT HEPATITIS 9 [facility] C QUANT INC INC & REVERSE TRANSCRIP TION COLLECTIO 41964 EMORY CAT N VENOUS 9 [facility] BLOOD INC INC VENIPUNCT URE BLOOD 34350 EMORY CAT COUNT 9 [facility] COMPLETE INC INC AUTO&[place] [address] EMORY CAT GAMMAGLOB 9 [facility] ULIN IGA INC INC IGD IGG IGM EACH THROMBOPL 51804 EMORY CAT ASTIN 9 [facility] TIME INC INC PARTIAL PLASMA/WH OLE BLOOD MICROSOMA 79862 EMORY CAT L 9 [facility] ANTIBODIE INC INC S EACH FLUORESCE 08119 EMORY CAT NT 9 [facility] NONNFCT INC INC AGT ANTB TITER EA ANTIBODY PROTHROMB 13398 EMORY CAT IN TIME 9 [place] [address] EMORY CAT ABDOMINAL 9 [facility] REAL INC INC TIME W/IMAGE DOCUMENTA TION OPHTH 28506 ROB RIVAS, MEDICAL 9 CHERELLE A CHERELLE A XM&EVAL COMPRHNSV ESTAB PT 1/> SCREENING 02910 EMORY CAT 9 [facility] MAMMOGRAP INC INC HY BILATERAL LEVONORGE J7302 [facility] STREL-RLS 9 [facility] INTRAUTER SARAH N CNTRACPT 52 MG REMOVAL 95657 [facility] INTRAUTER 9 [facility] INE CLIN[facility] OF DEVICE SARAH IUD SCR G0145 PATHOLOGY PATHOLOGY CYTOPATH 9 & & CERV/VAG CYTOLOGY CYTOLOGY SCR LAB LAB AUTO&MNL RSCR PHYS COMPUTER- 57306 [facility] JEAN, AIDED 9 MEDICAL INEZ DETECTION IMAGING ASSOCIATE SCREENING S MAMMOGRAP HY URINE 30248 [facility] 9 [facility] TEST CLINIC OF VISUAL SARAH COLOR CMPRSN METHS IMMUNOASS 06306 LAB KIM LAB KIM AY 9 AMERIC AMERIC ANALYTE HOLDING HOLDING QUAL/SEMI QUAL MULTIPLE STEP ANTINUCLE 79023 LAB KIM LAB KIM AR 9 AMERIC AMERIC ANTIBODIE HOLDING HOLDING S LAM IRON 06270 COMBINED COMBINED BINDING 9 PHYSICIAN PHYSICIAN CAPACITY S LAB S LAB ALPHA-1-A 99480 LAB KIM LAB KIM NTITRYPSI 9 AMERIC AMERIC N TOTAL HOLDING HOLDING ACUTE 81854 LAB KIM LAB KIM HEPATITIS 9 AMERIC AMERIC [place] [address] COMBINED COMBINED AMYLASE 9 PHYSICIAN PHYSICIAN S LAB S LAB CERULOPLA 54430 LAB KIM LAB KIM SMIN 9 [employer]IC [place] [address] COMBINED COMBINED IRON 9 PHYSICIAN PHYSICIAN S LAB S LAB COLLECTIO 76533 COMBINED COMBINED N VENOUS 9 PHYSICIAN PHYSICIAN BLOOD S LAB S LAB VENIPUNCT URE US SOFT 92389 [place] SAUL PINEDA 9 MEDICAL LORNA P HEAD & IMAGING NECK REAL ASSOCIATE TIME S IMGE DOCM RADIOLOGI 99059 EMORY CAT C EXAM 9 [facility] CHEST 2 INC INC VIEWS FRONTAL&L ATERAL PRESSURIZ 56529 EMORY CAT ED/NONPRE 9 [facility] SSURIZED INC INC INHALATIO N TREATMENT HEMOGLOBI 23931 COMBINED COMBINED N 9 PHYSICIAN PHYSICIAN GLYCOSYLA S LAB S LAB LAKISHA A1C LIPID 74212 COMBINED COMBINED PANEL 9 PHYSICIAN PHYSICIAN S LAB S LAB COLLECTIO 62936 COMBINED COMBINED N VENOUS 9 PHYSICIAN PHYSICIAN BLOOD [place] [address] COMBINED COMBINED THYROID 9 PHYSICIAN PHYSICIAN STIMULATI S LAB S LAB NG HORMONE TSH COMPREHEN 35805 COMBINED COMBINED SIVE 9 PHYSICIAN PHYSICIAN METABOLIC S LAB S LAB PANEL COMPREHEN 64444 COMBINED COMBINED SIVE 9 PHYSICIAN PHYSICIAN [place]AB[place] [address] COMBINED COMBINED THYROID 9 PHYSICIAN PHYSICIAN STIMULATI S LAB S LAB NG HORMONE TSH COLLECTIO 92721 COMBINED COMBINED N VENOUS 9 PHYSICIAN PHYSICIAN BLOOD S LAB S LAB VENIPUNCT URE LIPID 78794 COMBINED COMBINED PANEL 9 PHYSICIAN PHYSICIAN S LAB S LAB HEMOGLOBI 95466 COMBINED COMBINED N 9 PHYSICIAN PHYSICIAN GLYCOSYLA S LAB S LAB LAKISHA A1C BLD GLU A4253 [facility] TEST/REAG 8 PHARMACY PHARMACY T STRIPS #591 #591 HOME BLD GLU MON-50 COLLECTIO 71586 EMORY CAT N VENOUS 8 [facility] BLOOD INC INC VENIPUNCT URE US SOFT 85857 [facility] PENA TISSUE 8 MEDICAL INEZ HEAD & IMAGING NECK REAL [place]OCI[place] [address] EMORY CAT THYROID 8 [facility] STIMULATI INC INC NG HORMONE TSH GONADOTRO 95672 EMORY CAT PIN 8 MEM [facility] LUTEINIZI INC INC NG HORMONE GONADOTRO 87935 EMORY CAT PIN 8 [facility] FOLLICLE INC INC STIMULATI NG HORMONE RADIOLOGI 70647 [facility] CORNELIUS EXAM 8 MEDICAL INEZ CHEST 2 IMAGING VIEWS ASSOCIATE FRONTAL&L S ATERAL PHYSICAL 86982 EMORY CAT THERAPY 8 [facility] EVALUATIO INC INC N THERAPEUT 26332 EMORY CAT IC PX 1/> 8 [facility] AREAS INC INC EACH 15 MIN EXERCISES E-STIM G0283 EMORY CAT 1/> AREAS 8 [facility] OTH THAN INC INC WND CARE PART TX PLAN IM ADM 64637 EMORY CAT PRQ ID 8 [facility] SUBQ/IM INC INC NJXS 1 VACCINE TDAP 68238 EM[facility] CAT VACCINE 7 8 [facility] YRS/> IM INC INC SIMPLE 36055 [facility] CAT REPAIR 8 [facility] F/E/E/N/L INC INC /M 2.5CM/< RADEX [address] SHOULD[place] 8 [facility] COMPLETE [facility]AL REGIONAL MINIMUM 2 MED CTR MED CTR VIEWS INJECTION J1885 ST [address] 8 [facility] [facility]AL MED CTR MED CTR TROMETHAM INE PER [address] PROPH/DX 8 [facility] NJX [facility] REG[facility] SUBQ/IM MED CTR MED CTR Encounters Encounter Start End Date Code Location Performer Type Date OFFICE 55597 [facility] 7 7 [facility] PSC MINUTES OFFICE 37590 [facility] OUTPATI[facility] 7 7 L SURGIAL T VISIT 40 ASSOCIATE MINUTES [facility] EMORY - 7 7 [facility] 7 7 Y [facility] OUTPATIEN [facility] - 7 7 [facility] - 7 7 [facility] - 7 7 [facility] OFFICE 15519 [place] [facility]YA OUTPATIEN 7 7 L SURGIAL T NEW 45 MINUTES ASSOCIATE EMERGENCY 67416 [facility] DEPT 6 6 PRIMARY VISIT CARE HIGH PHYSICIAN SEVERITY& S THREAT FUNCJ OFFICE 16543 [place] JESSY OUTPATIEN 6 6 [facility] T VISIT INTERNAL 15 MED MINUTES HOME [facility], 6 6 HOME INPATIENT HEALTH AGENCY HOME [facility], 6 6 HOME INPATIENT HEALTH AGENCY HOME [facility] 6 6 HOME INPATIENT HEALTH AGENCY OFFICE 76032 [place] [facility] 6 6 [place] [facility] T VISIT CLINIC 15 PSC MINUTES HOSPITAL EMORY - 6 6 [facility] OUTPATIEN INC HOME [facility] 6 6 HOME INPATIENT HEALTH AGENCY EMERGENCY 94504 [facility] DEPT 6 6 PRIMARY KET VISIT CARE HIGH PHYSICIAN SEVERITY& S THREAT CRITICAL ACCESS HOSPITAL [facility], 6 6 HOME INPATIENT HEALTH AGENCY OFFICE 10749 [place] OUTPATIEN 6 6 [place] [facility] THO T VISIT CLINIC 15 PSC MINUTES OFFICE 34675 [place] OUTPATIEN 6 6 [place] JR T VISIT CLINIC 15 PSC MINUTES HOSPITAL EMORY - 6 6 [facility] OUTPATIEN [facility] T OFFICE 94163 [facility] MENDES OUTPATIEN 6 6 PATRICIA II EAR T VISIT CLINIC 25 PSC MINUTES OFFICE 28110 [place] JESSY OUTPATIEN 5 5 [facility] T VISIT INTERNAL 15 MED MINUTES HOME [facility], 5 5 HOME INPATIENT HEALTH AGENCY [facility]OS[facility] - 5 5 [facility] OUT[facility]IEN [facility] EMORY - 4 4 [facility] OUT[facility]IEN [facility] EMORY [facility] 4 4 [facility] OUTPATIEN [facility] T EMERGENCY 96342 JOANNA OSCAR JOANNA OSCAR DEPT 4 4 VISIT HIGH SEVERITY& THREAT [facility] - 3 3 CHEONDOISM OUTPATIEN [facility] T OFFICE 87654 JESSY JESSY OUTPATIEN 3 3 [facility] T VISIT 15 MINUTES [facility] - 3 3 N [facility] OFF[facility] 13761 JESSY JESSY OUTPATIEN 3 3 JOANNA JOANNA T VISIT 15 MINUTES OFFICE 53402 JESSY JESSY OUTPATIEN 3 3 JOANNA JOANNA T VISIT 15 MINUTES HOSPITAL [facility] - 3 3 [facility] OUTPATIEN INC T OFFICE 85464 CHINO HALI CHINO HALI OUTPATIEN 3 3 T VISIT 25 MINUTES OFFICE 24157 JESSY JESSY OUTPATIEN 2 2 JOANNA JOANNA T VISIT 15 MINUTES HOSPITAL [facility] - 2 2 [facility]EN [facility] EM[facility] - 2 2 [facility] [facility] T OFFICE 68793 JESSY JESSY OUTPATIEN 2 2 JOANNA JOANNA T VISIT 15 MINUTES HOSPITAL EMORY - 2 2 [facility] - 2 2 [facility] EMORY - 2 2 [facility] T OFFICE 76741 SURYA [place] OUTPATIEN 2 2 NAN JARVIS T VISIT 15 MINUTES HOSPITAL EMORY - 2 2 [facility] T OFFICE 02054 JESSY JESSY OUTPATIEN 2 2 JOANNA JOANNA T VISIT 15 MINUTES HOSPITAL EMORY - 1 1 [facility] EMORY - 1 1 [facility] T OFFICE 84004 COLORECTA BOBO OUTPATIEN 1 1 L SURGIAL MITESH T NEW 30 MINUTES ASSOCIATE OFFICE 58196 [place] CHINO HALI OUTPATIEN 1 1 MEDICAL T VISIT SERV 25 FOUNDATIO MINUTES OFFICE 90598 [place] CHINO HALI OUTPATIEN 1 1 MEDICAL T VISIT SERV 25 FOUNDATIO MINUTES HOSPITAL EMORY - 1 1 [facility] OUTPATIEN [facility] EMORY [facility] 1 1 [facility] OUTPATIEN [facility] EMORY [facility] 1 1 [facility] EM[facility] - 1 1 [facility] OUTPATIEN [facility] EMORY - 1 1 [facility] 1 1 [facility] OUTPATIEN [facility] OFFICE 12472 [facility] T VISIT SERV 25 FOUNDATIO MINUTES OFFICE 68319 [facility] 1 1 [facility] 15 PSC MINUTES OFFICE 06176 [place] [facility] 1 1 [facility] T VISIT [facility]NAL 15 MEDI [facility] UNIVERSIT - 1 1 [facility] T OFFICE 16200 [facility] 1 1 [place] AND T VISIT PHYSICIAN 15 S ASSIST [facility] EMORY - 0 0 [facility] OUTPATIEN [facility] T OFFICE 20580 TAWNYA LAL OUTPATIEN 0 0 MEDICAL T VISIT SERV 25 FOUNDATIO MINUTES EMERGENCY 09542 [facility] 0 0 BRANDY LITA DEPARTMEN EMERGENCY T VISIT PHYS HIGH/URGE NT SEVERITY HOSPITAL EMORY - 0 0 [facility] OUTPATIEN [facility] EMORY - 0 0 [facility] OUTPATIEN [facility] T EMERGENCY 96358 EDIL BETANCOURT 0 0 EMERGENCY GRE DEPARTMEN SERVICES T VISIT HIGH/URGE NT SEVERITY EMERGENCY 05035 EMORY 0 0 [facility] T VISIT LIMITED/M INOR PROB OFFICE 55202 TAMMIE PEDROZA OUTPATIEN 0 0 LTH JR THO T VISIT UROLOGY 10 PSC MINUTES OFFICE 54431 TAMMIE PEDROZA OUTPATIEN 0 0 LT JR THO T VISIT UROLOGY 15 PSC MINUTES HOSPITAL [facility] - 0 0 [facility] OUTPATIEN T EMERGENCY 73845 EDIL HUDSON DEPT 0 0 EMERGENCY TYESHA VISIT SERVICES HIGH SEVERITY& THREAT [facility] EMORY - 0 0 [facility] OUTPATIEN INC T EMERGENCY 97597 EMORY 0 0 [facility] DEPARTMEN INC T VISIT HIGH/URGE NT SEVERITY [facility] - 0 0 HOSPITAL INPATIENT EMERGENCY 94695 EDIL LAINEZ DEPT 0 0 EMERGENCY VISIT SERVICES HIGH SEVERITY& THREAT [facility] OFFICE 67577 TAWNYA LULÚ LAL OUTPATIEN 0 0 MEDICAL T VISIT SERV 25 FOUNDATIO MINUTES [facility] EMORY - 0 0 [facility] OUTPATIEN INC T OFFICE 58463 TAWNYA PERALTAEDNA JARAMILLO OUTPATIEN 0 0 MEDICAL T VISIT SERV 25 FOUNDATIO MINUTES OFFICE 18871 TA[facility] DIVYA OUTPATIEN 0 0 MEDICAL SIM A T VISIT SERV 40 FOUNDATIO MINUTES OFFICE 01587 TAWNYA CHINO, OUTPATIEN 0 0 MEDICAL VARINDER T VISIT SERV 15 FOUNDATIO MINUTES HOSPITAL EMORY - 0 0 [facility] OUTPATIEN INC T OFFICE 95558 TAWNYA CHINO, OUTPATIEN 0 0 MEDICAL VARINDER T VISIT SERV 15 FOUNDATIO MINUTES OFFICE 18631 [place] CHINO, OUTPATIEN 0 0 MEDICAL VARINDER T VISIT SERV 15 FOUNDATIO MINUTES OFFICE 12231 [facility] POST OUTPATIEN 9 9 [facility] KRYSTYNA A T VISIT INTERNAL 15 MED MINUTES OFFICE 16898 TAWNYA ZEYAD CHINOPATIANTHONY 9 9 MEDICAL VARINDER T VISIT SERV 25 FOUNDATIO MINUTES HOSPITAL EMORY - 9 9 [facility] OUTPATIEN INC T HOSPITAL EMORY [facility] 9 9 [facility] OUTPATIEN INC T HOSPITAL EMORY - 9 9 [facility] OUTPATIEN INC T OFFICE 88016 TAWNYA CHINO CONSULTAT 9 9 MEDICAL VARINDER ION SERV NEW/ESTAB FOUNDATIO PATIENT 80 MIN HOSPITAL EMORY - 9 9 [facility] OUTPATIEN INC T OFFICE 41982 [place] MCKEMIE OUTPATIEN 9 9 LUIS BAPTISTE, T VISIT INTERNAL MITRA F 15 MED [facility] EMORY - 9 9 [facility] OUTPATIEN INC T OFFICE 68166 [place] MCKEM[facility] OUTPATIEN 9 9 LUIS BAPTISTE, T VISIT INTERNAL MITRA F 15 MED [facility] EMORY - 9 9 [facility] OUTPATIEN INC T EMERGENCY 69096 EDIL HUDSON, 9 9 EMERGENCY [facility] DEPARTMEN SERVICES T VISIT MODERATE ASSOCIATE SEVERITY S HOSPITAL EMORY - 9 9 [facility] OUTPATIEN INC T EMERGENCY 72716 EMORY 9 9 [facility] DEPARTMEN INC T VISIT LOW/MODER SEVERITY EMERGENCY 26420 EMORY 9 9 [facility] DEPARTMEN INC T VISIT LIMITED/M INOR PROB HOSPITAL EMORY - 9 9 [facility] OUTPATIEN INC T EMERGENCY 05834 EDIL FELDMAN, 9 9 EMERGENCY [facility] DEPARTMEN SERVICES O T VISIT MODERATE ASSOCIATE SEVERITY S OFFICE 46776 [place] MCKEMIE OUTPATIEN 9 9 LU[facility] BAPTISTE T VISIT INTERNAL MITRA F 15 MED MINUTES OFFICE 54184 RAFA RAFA, OUTPATIEN 9 9 SAPNA Arevalo T VISIT 25 MINUTES OFFICE 84759 [place] MCK[facility] OUTPATIEN 9 9 Cate SMITH JR VISIT INTERNAL MITRA F 15 MED MINUTES HOSPITAL EMORY - 8 8 [facility] OUTPATIEN INC T OFFICE 40209 [place] MCKEM[place] OUTPATIEN 8 8 LU[facility] BAPTISTE, T VISIT INTERNAL MITRA F 15 MED MINUTES OFFICE 84156 [place] MCK[facility] OUTPATIEN 8 8 LU[facility] BAPTISTE, T VISIT INTERNAL MITRA F 15 MED MINUTES HOSPITAL EMORY - 8 8 [facility] OUTPATIEN INC T EMERGENCY 43915 LAPEER 8 8 [facility] DEPARTMEN [facility] T VISIT HIGH/URGE NT SEVERITY HOSPITAL EMORY - 8 8 [facility] OUTPATIEN INC T OFFICE 25944 [place] MCKEM[place] OUTPATIEN 8 8 LUIS BAPTISTE, Cate VISIT INTERNAL MITRA F 15 MED MINUTES EMERGENCY [address] ST 8 8 [facility] T VISIT MED CTR LOW/MODER SEVERITY [facility]PITAL ST - 8 8 [facility] T MED CTR OFFICE 38786 [place] MCKEMIE OUTPATIEN 8 8 LUIS BAPTISTE, Cate VISIT INTERNAL MITRA F 25 MED MINUTES OFFICE 38811 [place] ALYSHA, OUTPATIEN 8 8 LUIS FINK T VISIT INTERNAL 15 MED MINUTES OFFICE 55718 [facility] 8 8 [facility] T VISIT CLIN[facility] OF CLINIC OF 15 MINUTES [facility] OFFICE 23462 NAVEEN HODGE OUTPATIEN 8 8 WON Falcon T VISIT 15 MINUTES
--- OUTSIDE RECORDS SUMMARY | 2017-02-06 09:30 | External Medical Summary Rpt ---
Author Author , EDUARDO Organization [facility] Address Unknown Phone [email or web address] Pulse Care Team Providers Care Awnings Mechanic Name Role Phone [facility] Unavailable Unavailable PHYSICIANS, [facility] GILMAR SCHAFER Unavailable Unavailable GILMAR RODRIGUEZ BEINEKE Unavailable Unavailable MICHAEL BESSON OSCAR, BESSON Unavailable Unavailable OSCAR BESSON, KRYSTYNA A, Unavailable Unavailable BESSON, KRYSTYNA A GARCIA, GARCIA Unavailable Unavailable GARCIA ALL, GARCIA ALL Unavailable Unavailable LUNDBERG, LUNDBERG Unavailable Unavailable LUNDBERG JAM, LUNDBERG JAM Unavailable Unavailable [facility], Unavailable Unavailable [facility] NAVEEN TAPIA, NAVEEN Unavailable Unavailable WILLIE [...] Unavailable Unavailable LAB, [facility] Unavailable Unavailable [facility], [facility] ANESTH OF [...] GORRINGE AND, Unavailable Unavailable GORRINGE AND STACEY LEWSI, STACEY WAY Unavailable Unavailable SAPNA CRAIG, Unavailable Unavailable SAPNA CRAIG [facility] Unavailable Unavailable INC, [facility] ALEKS ENCARNACION HARVEY, Unavailable Unavailable ROB NEWTON KAYA Unavailable Unavailable CHERELLE RIVAS, Unavailable Unavailable CHERELLE RIVAS [facility], Unavailable Unavailable [facility] JOSÉ MIGUEL ROSA, Unavailable Unavailable JOSÉ MIGUEL ROSA JOSÉ MIGUEL ROSA, Unavailable Unavailable JOSÉ MIGUEL ROSA PA ISIDORO, PA ISIDORO Unavailable Unavailable SURYA NAN, SURYA Unavailable Unavailable NAN SURYA NAN, SURYA Unavailable Unavailable NAN [facility], [facility] GIBSON TYESHA, GIBSON TYESHA [...] [facility] Unavailable Unavailable [facility] ADRIÁN HAM, ADRIÁN HAM Unavailable Unavailable MCGROARTY ROSA, Unavailable Unavailable MCGROARTY ROSA KAI LAMA, Unavailable Unavailable MITRA CONRAD JR, JR Unavailable Unavailable F, MITRA QUINN JR F MERCHANT KET, Unavailable Unavailable MERCHANT KET LORNA PINEDA, Unavailable Unavailable LORNA PINEDA [facility] Unavailable Unavailable [facility] Unavailable Unavailable [facility], [facility] Unavailable Unavailable LAB, PATHOLOGY [...] PHARM #[id number] [facility] Unavailable Unavailable [id number] # [id number], [facility] [id number] # [id number] MENDES II EAR, Unavailable Unavailable [facility] DVIYA JARAMILLO, DIVYA LIS Unavailable Unavailable SIM STOKES, Unavailable Unavailable SIM STOKES SIMPSON J Unavailable Unavailable SLABPAULA JR, SLABJAKOBRENETTA Unavailable Unavailable JR SLABAURENETTA JR THO, Unavailable Unavailable SLABPAULA JR THO SOKAN BAB, SOKAN BAB Unavailable Unavailable SOKAN, MARCIA O, Unavailable Unavailable SOKAN, MARCIA O [facility], Unavailable Unavailable [facility], Unavailable Unavailable [facility] Unavailable Unavailable [facility], [facility] STACK, STACK Unavailable Unavailable CARTAGENA, CARTAGENA Unavailable Unavailable CARTAGENA RAY, CARTAGENA Unavailable Unavailable RAY BETANCOURT GRE, BETANCOURT Unavailable Unavailable GRE NIKI KIRBY, NIKI Unavailable Unavailable MIRTA [facility], [facility]available Unavailable [facility] Unavailable Unavailable [facility], [facility]available [facility]available #591, [facility] Unavailable Unavailable #591, [facility] # Unavailable Unavailable [id number], [facility] # [id number] [facility] Unavailable Unavailable AGENCY, [facility] Unavailable Unavailable OF [facility], [facility] Unavailable Un[facility], [facility] Purpose Continuity of Care Document - 06-29-2007 through 2016 Problems Code Diagnosis DOS Provider Status N200 CALCULUS OF 12-20-2016 [facility] KIDNEY [facility] PSC 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 NERVOUS SYSTEM UNS K5909 OTHER 11-11-2016 [facility] CONSTIPATIO SURGIAL N ASSOCIATE R140 ABDOMINAL 11-11-2016 [facility] DISTENSION SURGIAL GASEOUS ASSOCIATE R159 FULL 11-11-2016 [facility] INCONTINENC SURGIAL E OF FECES ASSOCIATE K5730 DIVERTICULO 10-15-2016 [place] SIS LG MEDICAL INTEST W/O IMAGING ASS PERF/ABSC W/O BLEED K5901 SLOW 10-15-2016 [place] TRANSIT MEDICAL CONSTIPATIO IMAGING ASS N N816 RECTOCELE 10-01-2016 [facility] HOS Z8719 PERSONAL 09-20-2016 [place] HISTORY MEDICAL OTHER IMAGING ASS DISEASES DIGESTIVE [...] AGENCY E R350 FREQUENCY 04-15-2016 [facility] [place] [facility] PSC R3915 URGENCY OF 04-15-2016 [facility]INATION [facility] I10 ESSENTIAL 03-25-2016 [facility] HYPERTENSIO INTERNAL N MED [id number] POISONING 03-25-2016 [place] OTH OPIOIDS VALLEY SELF-HARM INTERNAL INITIAL MED ENCNTR [id number] POISONING 03-25-2016 [place] BENZODIAZEP VALLEY [place] INTERNAL SELF-HARM MED INITIAL ENC Z1231 ENCOUNTER 03-06-2016 [facility]CRE[facility]MO [facility] INC NEOPLASM BREAST Y88498 PERSONAL 03-06-2016 [place] HISTORY OF MEDICAL URINARY IMAGING ASS CALCULI M545 LOW BACK 11-21-2015 [facility] R300 DYSURIA 11-21-2015 [facility] N202 CALCULUS OF 10-09-2015 NEW KIDNEY [place] WITH [facility]INIC P[facility] CALCULUS OF URETER N201 CALCULUS OF 08-30-2015 NEW URETER [facility] P[facility] K5900 CONSTIPATIO 06-27-2015 NEW N [place] UNSPECIFIED CLINIC PSC R1031 RIGHT LOWER 06-27-2015 NEW QUADRANT [place] [facility] P[facility] R150 INCOMPLETE 06-27-2015 NEW DEFECATION [facility] P[facility] G67604 OTHER 05-23-2015 [place] [facility]CLE [facility] SPASM INTERNAL MED [id number] CONCUSSION 05-23-2015 [place] W/LOC UNS VALLEY DURATION INTERNAL INITIAL MED ENCOUNTER [id number] SPRAIN 05-23-2015 [place] JOINT & LIG VALLEY UNS PARTS INTERNAL NECK MED SUBSEQUENT ENC A49654 POST-TRAUMA 05-17-2015 [place] TIC MEDICAL HEADACHE IMAGING ASS UNS NOT INTRACTABLE M542 CERVICALGIA 05-17-2015 [place] [facility] R4020 UNSPECIFIED 05-17-2015 [place] COMA MEDICAL IMAGING ASS R0139UL UNSPECIFIED 05-17-2015 [place] INJURY OF MEDICAL HEAD IMAGING ASS INITIAL ENCOUNTER W204FEN UNSPECIFIED 05-17-2015 [place] INJURY OF MEDICAL NECK IMAGING ASS INITIAL ENCOUNTER 4550 INTERNAL 12-02-2014 NEW HEMORRHOIDS [place] WITHOUT CLINIC PSC MENTION COMP 40577 ESOPHAGEAL 12-02-2014 NEW REFLUX [place] [facility]IN[facility] PSC 30267 UNS 12-02-2014 [facility] IS W/O MENTION HEMORR 36292 OTHER 12-02-2014 NEW SYMPTOMS [place] INVOLVING CLINIC PSC DIGESTIVE SYSTEM OTHER 5920 CALCULUS OF 11-30-2014 [facility] INC V7189 OBSERVATION 11-30-2014 [place] OTHER MEDICAL SPECIFIED IMAGING ASS SUSPECTED CONDITIONS V2542 SURVEILLANC 07-12-2014 [facility] E PREV PRSC PHYSICIANS INTRAUTERN GROUP CNTRACPT DEVC V259 UNSPECIFIED 07-12-2014 [facility] CONTRACEPTI GROUP VE MANAGEMENT 26066 FULL 04-29-2014 NEW INCONTINENC [place] E OF FECES CLINIC PSC 41566 PAINFUL 03-04-2014 [place] RESPIRATION MEDICAL IMAGING ASS 7867 ABNORMAL 03-04-2014 [place] CHEST MEDICAL SOUNDS IMAGING ASS 5921 CALCULUS OF 02-06-2014 [place] URETER MEDICAL IM[facility]ING ASS 80666 HEMATURIA 02-06-2014 [place] UNSPECIFIED MEDICAL IMAGING ASS 59938 ABDOMINAL 02-06-2014 [place] PAIN OTHER MEDICAL SPECIFIED IMAGING ASS SITE 43104 COR 11-04-2013 [facility] UNSPEC INC TYPE VESSEL LIME/CHARLES T 7880 RENAL COLIC 07-25-2013 JOANNA OSCAR 86219 DIAB W/O 05-24-2013 CLINIC COMP TYPE PHARMACY II/UNS NOT STATED UNCNTRL 3499 UNSPECIFIED 04-23-2013 [facility] SYSTEM 29656 ABDOMINAL 04-23-2013 RICE THO PAIN, UNSPECIFIED SITE 35462 UNSPECIFIED 03-25-2013 JESSY JOANNA CONSTIPATIO N 7061 [...] JESSY NOT JOANNA SPECIFIED ACUTE OR CHRONIC 45706 OBST 07-29-2012 [facility]IC [facility] BRONCHITIS INC W/ACUTE BRONCHITIS 03100 OTHER 07-29-2012 JEAN DISEASES OF CK LUNG NOT ELSEWHERE CLASSIFIED 7291 UNSPECIFIED 07-29-2012 JESSY MYALGIA JOANNA AND MYOSITIS 5363 GASTROPARES 06-29-2012 CHINO HALI IS 5718 OTHER 06-29-2012 [facility] HALI CHRONIC NONALCOHOLI C LIVER DISEASE 20335 DIVERTICULO 06-12-2012 JE[facility] SIS OF CK COLON 5738 OTHER 06-12-2012 JE[facility] SPECIFIED CK DISORDERS OF LIVER 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 SITE UNSPEC V4551 PRESENCE OF 06-12-2012 JEAN CK INTRAUTERIN E CONTRACEPTI VE DEVICE 70307 CHEST PAIN 03-17-2012 [place] UNSPECIFIED TH ROSA 2720 PURE 03-11-2012 [place] HYPERCHOLES TH ROSA TEROLEMIA 04641 OTHER CHEST 03-11-2012 [place] PAIN TH ROSA V762 SCREENING 02-27-2012 PATHOLOGY & FOR CYTOLOGY [facility] LAB NEOPLASM OF THE CERVIX 55332 OTHER 12-20-2011 [place] DISEASES OF MEDICAL SPLEEN IMAGING ASS 84163 OTHER 12-20-2011 [place] SPECIFIED MEDICAL DISORDER OF IMAGING ASS KIDNEY [...] ORGANISM UNSPECIFIED 7862 COUGH 08-02-2011 SURYA CONLEY 38479 UNSPECIFIED 07-17-2011 JESSY JOANNA ARTHROPATHY MULTIPLE SITES 53491 PAIN IN 07-17-2011 [place] JOINT, HAND MEDICAL IMAGING ASS 88424 DISORDER OF 07-17-2011 [facility] BONE AND [facility] CARTILAGE INC UNSPECIFIED 63595 OTHER 07-02-2011 RIVAS KAYA VITREOUS OPACITIES 7231 CERVICALGIA 11-07-2010 [place] [facility] 7241 PAIN IN 11-07-2010 [place] THORACIC MEDICAL SPINE IMAGING ASS 65252 ATROPHIC 10-29-2010 PATHOLOGY & GASTRITIS CYTOLOGY WITHOUT LAB MENTION OF HEMORRHAGE 07310 OTHER SPEC 10-29-2010 [place] MEDICAL GASTRITIS SERV WITHOUT FOUNDATIO MENTION HEMORRHAGE 64306 DYSPHAGIA 10-29-2010 COMMUNITY UNSPECIFIED ANESTH OF THE BLUE 61288 ABDOMINAL 10-29-2010 [place] MEDICAL PAIN, SERV GENERALIZED FOUNDATIO 7823 EDEMA 10-09-2010 [facility] [place] 7850 UNSPECIFIED 09-05-2010 [facility] TACHYCARDIA [place] V1009 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 2893 LYMPHADENIT 07-12-2010 [facility] UNSPECIFIED EXCEPT MESENTERIC 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 14944 WHEEZING 07-12-2010 [facility] 6256 FEMALE 07-09-2010 [facility] UROLOGY INCONTINENC PSC E 19502 SHORTNESS 06-20-2010 [facility] V5869 LONG-TERM 06-20-2010 [facility] (CURRENT) [facility] USE OF INC OTHER MEDICATIONS 4556 UNSPEC 05-28-2010 [place] MED[facility] HEMORRHOIDS SERV WITHOUT FOUNDATIO MENTION COMPLICATIO N 68700 ABDOMINAL 03-13-2010 [facility] PAIN RIGHT [facility] LOWER INC QUADRANT 591 HYDRONEPHRO 02-23-2010 [facility] 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 9982 ACCIDENTAL 02-23-2010 [facility] PROC NEC 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 4553 EXTERNAL 02-05-2010 [place] [facility] HEMORRHOIDS SERV WITHOUT FOUNDATIO MENTION COMP 5690 ANAL AND 02-05-2010 [facility] POLYP INC 5693 HEMORRHAGE 02-05-2010 PATHOLOGY & OF RECTUM CYTOLOGY AND ANUS LAB 74803 OTHER 10-05-2009 [facility] DYSRHYTHMIA PROF SERV S 60725 THYROTOX 07-03-2009 DERRICK KERNS W/O GOITER/OTH CAUSE W/O CRISIS 08028 OTHER 05-03-2009 [place] DYSPNEA AND VALLEY INTERNAL RESPIRATORY MED ABNORMALITI ES V5861 LONG-TERM 04-04-2009 [facility] USE OF INC ANTICOAGULA NTS V251 ENCOUNTER 02-28-2009 [facility] INSERT/[facility] CONI IU CLINIC OF CONTRACEPTI SARAH VE DEVICE V7231 ROUTINE 02-28-2009 [facility] GYNECOLOGIC [facility] AL CLINIC OF EXAMINATION SARAH V7612 OTHER 02-28-2009 [place] SCREENING MEDICAL MAMMOGRAM IMAGING ASSOCIATES 3384 CHRONIC 02-08-2009 LAB KIM PAIN [facility]IC [employer]ING 21282 OTHER 02-08-2009 [facility] FATIGUE LAB 42366 OTHER VOICE 12-08-2008 [place] AND MEDICAL RESONANCE IMAGING DISORDERS ASSOCIATES 4660 ACUTE 11-23-2008 [facility] BRONCHITIS [facility] INC 50020 ASTHMA, 11-23-2008 [facility] UNSPECIFIED EMERGENCY , SERVICES UNSPECIFIED ASSOCIATES STATUS 4558 UNSPECIFIED 11-20-2008 [facility] HEMORRHOIDS INC WITH OTHER COMPLICATIO N 7242 LUMBAGO 10-31-2008 [facility] INTERNAL MED 7810 ABNORMAL 10-31-2008 [place] INVOLUNTARY VALLEY MOVEMENTS INTERNAL MED 02798 OTHER 07-07-2008 [place] CHRONIC VALLEY PAIN INTERNAL MED 460 ACUTE 07-07-2008 [place] NASOPHARYNG VALLEY ITIS INTERNAL MED 2409 GOITER, 03-01-2008 [place] UNSPECIFIED MEDICAL IMAGING ASSOC[facility]ATES 6260 ABSENCE OF 03-01-2008 [facility] MENSTRUATIO [facility] N INC 13420 LOSS OF 03-01-2008 [place] WEIGHT [facility]ICAL [facility] 72380 INSOMNIA 02-26-2008 [place] UNSPECIFIED VALLEY INTERNAL MED 83791 PAIN IN 01-19-2008 [facility] JOINT, [facility] SHOULDER INC REGION V571 OTHER 01-19-2008 [facility] PHYSICAL [facility] THERAPY INC 72250 OPEN WOUND 12-13-2007 [facility] FACE UNSPEC [facility] HOS[facility] SITE INC WITHOUT MENTION COMP V065 NEED 12-13-2007 [facility] PROPHYLACTI [facility] C INC VACCINATION W/TETANUS-D [facility] 89311 ENTHESOPATH 12-07-2007 [place] Y OF VALLEY UNSPECIFIED [...] 06 10 2 10 28 RI 88 AL Ac AZ 17 -0 -2 0. TE 64 LL ti EP 23 7 9- 00 43 ER ve AM 92 20 20 0 AI 77 11 11 D CA 10 0 PH RO AR L MG MA J CY TA BL 03 ET 93 8 # 03 93 DI 00 04 10 2 10 28 RI 87 AL Ac AZ 17 -1 -0 0. TE 90 LL ti EP 23 2- 3- 00 50 ER ve AM 92 20 20 0 AI 77 11 11 D CA 10 0 PH RO AR L MG MA Terrie LegalGuru TA BL 03 ET 93 8 # 03 93 DI 00 04 09 2 10 28 RI 87 AL Ac AZ 17 -1 -0 0. TE 90 LL ti EP 23 2- 2- 00 50 ER ve AM 92 20 20 0 AI 77 11 11 D CA 10 0 PH RO AR L MG MA Terrie CY TA BL 03 ET 93 8 # 03 93 DI 00 06 07 1 10 28 RI 88 AL Ac AZ 17 -0 -2 0. TE 96 LL ti EP 23 7- 9- 00 72 ER ve AM 92 20 20 0 AI 77 11 11 D CA 10 0 PH RO AR L MG RADHA Falcon CY TA BL 03 ET 93 8 # 03 93 DI 00 06 07 1 10 28 RI 88 AL Ac AZ 17 -0 -0 0. TE 96 LL ti EP 23 7- 3- 00 72 ER ve AM 92 20 20 0 AI 77 11 11 D CA 10 0 PH RO AR L MG RADHA Falcon CY TA BL 03 ET 93 8 # 03 93 DI 00 06 06 2 10 28 RI 88 AL Ac AZ 17 -0 -0 0. TE 64 LL ti EP 23 7- 7- 00 43 ER ve AM 92 20 20 0 AI 77 11 11 D CA 10 0 PH RO AR L MG RADHA Falcon CY TA BL 03 ET 93 8 # 03 93 DI 00 03 05 2 10 28 RI 87 AL Ac AZ 17 -0 -0 0. TE 29 LL ti EP 23 1- 1- 00 06 ER ve AM 92 20 20 0 AI 77 11 11 D CA 10 0 PH RO AR L MG RADHA Falcon CY TA BL 03 ET 93 8 # 03 93 DI 00 03 04 2 10 28 RI 87 AL Ac AZ 17 -0 -0 0. TE 29 LL ti EP 23 1- 3- 00 06 ER ve AM 92 20 20 0 AI 77 11 11 D CA 10 0 PH RO AR L MG RADHA CHARGED.fm CY TA BL 03 ET 93 8 # 03 93 DI 00 03 03 2 10 28 RI 87 AL Ac AZ 17 -0 -0 0. TE 29 LL ti EP 23 1- 1- 00 06 ER ve AM 92 20 20 0 AI 77 11 11 D CA 10 0 PH RO AR L MG MA Terrie CY TA BL 03 ET 93 8 # 03 93 DI 00 01 02 1 90 30 RI 86 AL Ac AZ 17 -0 -0 .0 TE 56 LL ti EP 23 9- 1- 00 74 ER ve AM 92 20 20 AI 77 11 11 D CA 10 0 PH RO AR L MG MA J CY TA BL 03 ET 93 8 # 03 93 DI 00 12 12 90 30 RI 86 AL Ac AZ 17 -3 -3 .0 TE [...] A LL CA C PS UL E DE 00 12 12 24 4 RI 86 [...] 0 90 30 WA 44 MC Ac DE 37 -2 -2 .0 L- 90 KE ti AZ 84 6- 6- 00 MA 08 AL ve OL 00 20 20 RT 0 E AM 50 10 10 JR 1 1 PH AR WI MG MA LL CY IA TA # M BL F ET 10 05 91 DI 00 09 11 2 90 30 RI 85 AL Ac AZ 17 -2 -2 .0 TE 20 LL ti EP 23 9- 4- 00 48 ER ve AM 92 20 20 AI 77 10 10 D CA 10 0 PH RO AR L MG MA J CY TA BL 03 ET 93 8 # 03 93 AL 00 10 10 0 90 30 WA 44 MC Ac DE 37 -2 -2 .0 L- 89 KE ti AZ 84 8- 8- 00 MA 38 AL ve OL 00 20 20 RT 8 E AM 50 10 10 JR 1 1 PH AR WI MG MA LL CY IA TA # M BL F ET 10 05 91 DI 00 09 10 2 90 30 RI 85 AL Ac AZ 17 -2 -2 .0 TE 20 LL ti EP 23 9- 7- 00 48 ER ve AM 92 20 20 AI 77 10 10 D CA 10 0 PH RO AR L MG MA J CY TA BL 03 ET 93 8 # 03 93 DI 00 09 09 2 90 30 RI 85 AL Ac AZ 17 -2 -3 .0 TE 20 LL ti EP 23 9- 0- 00 48 ER ve AM 92 20 20 AI 77 10 10 D CA 10 0 PH RO AR L MG MA J CY TA BL 03 ET 93 8 # 03 93 00 06 08 2 90 30 RI 83 AL Ac 55 -0 -1 .0 TE 61 LL ti 50 1- 1- 00 93 ER ve 16 20 20 AI 40 10 10 D CA 5 PH RO AR L MA J CY 03 93 8 # 03 93 00 06 07 2 90 30 RI 83 AL Ac 55 -0 -1 .0 TE 61 [...] 06 06 2 90 30 RI 83 AL Ac AZ 17 -0 -1 .0 TE 61 LL ti EP 23 1- 5- 00 93 ER ve AM 92 20 20 AI 77 10 10 D CA 10 0 PH RO AR L MG MA J CY TA BL 03 ET 93 8 # 03 93 DI 00 03 05 2 90 30 RI 82 AL Ac AZ 17 -2 -1 .0 TE 67 LL ti EP 23 3- 6- 00 01 ER ve AM 92 20 20 AI 77 10 10 D CA 10 0 PH RO AR L MG MA J CY TA BL 03 ET 93 8 # 03 93 DI 00 03 04 2 90 30 RI 82 AL Ac AZ 17 -2 -2 .0 TE 67 LL ti EP 23 3- 0- 00 01 ER ve AM 92 20 20 AI 77 10 10 D CA 10 0 PH RO AR L MG MA J CY TA BL 03 ET 93 8 # 03 93 DI 00 03 03 2 90 30 RI 82 AL Ac AZ 17 -2 -2 .0 TE [...] 00 60 30 WA 44 MC Ac DE 37 -3 -1 .0 L- 79 KE ti AZ 84 1- 0- 00 MA 29 AL ve OL 00 20 20 RT 9 [...] 00 60 30 WA 44 BE Ac DE 37 -2 -1 .0 L- 78 SS [...] 01 60 30 WA 44 No Ac DE 37 -2 -0 .0 L- 68 t [...] 00 60 30 WA 44 No Ac DE 37 -2 -0 .0 L- 68 t [...] Procedure DOS Code Location Performer Comment RADEX 03913 [facility] [place] KOSTELIC ABDOMEN 1 7 RADIOLOGY ANTEROPOS TERIOR VIEW LITHOTRIP 79547 [facility] XTRCORP CLINIC SHOCK PSC WAVE ANES 61202 ANESTHESI JERILYN LITHOTRP 7 A XTRCORP ASSOCIATE SHOCK S PSC WAVE W/O WATER BATH URNLS DIP 61791 [facility] 7 [facility] STICK/TAB CLINIC LET RGNT PSC AUTO W/O MICROSCOP Y RADEX 12632 [place] GARCIA COLON 7 MEDICAL BARIUM IMAGING ENEMA ASS W/WO KUB RADEX 38326 [facility] COLON 7 Y OF Y OF BARIUM MIRELLA VU ENEMA E HOS E HOS W/WO KUB RADEX 98868 [place] BEINEKE ABDOMEN 1 7 MEDICAL IMAGING ANTEROPOS ASS TERIOR VIEW RADEX 27755 [facility] CAT ABDOMEN 1 7 [facility] INC INC ANTEROPOS TERIOR VIEW RADEX 74305 [facility] ABDOMEN 1 7 [facility] INC INC ANTEROPOS TERIOR VIEW PROCTOSGM 05646 COLORECTA DIVYA DSC RGD 7 L SURGIAL DX W/WO COLLJ ASSOCIATE SPEC BR/[place] [address] [facility] [place] CARTAGENA ABDOMEN & 6 RADIOLOGY PELVIS W/O CONTRAST MATERIAL URNLS DIP 85309 [place] JESSY 6 VALLEY STICK/TAB INTERNAL LET [...] AGENCY AGENCY E UNDPAD LARGE EA OBSERVATI 40905 [place] BESSON ON CARE 6 VALLEY OSCAR DISCHARGE INTERNAL MED MANAGEMEN T INITIAL 77580 [place] BESSON OBSERVATI 6 VALLEY OSCAR ON INTERNAL CARE/DAY MED 30 MINUTES ECG 55766 [facility] BREWERANTHONY ROUTINE 6 [facility] W/LEAST P 12 LDS I&R ONLY RADEX 41078 [facility] CAT ABDOMEN 1 6 [facility] INC INC ANTEROPOS TERIOR VIEW COMPUTER- 10754 [facility] CAT AIDED 6 MEM HOSP MEM [...] [place] [address] [facility] [place] LUNDBERG ABDOMEN & 6 RADIOLOGY [...] AGENCY AGENCY UNDWEAR MED EA URNLS DIP 48570 [facility] 6 [facility] STICK/TAB CLINIC LET RGNT PSC AUTO W/O MICROSCOP Y PT PREOP G8916 NEW NEW ORD IV 6 [facility] ABX PROPH CLINIC CLINIC ABX PSC PSC INITIATED TIME PT DOC G8907 NEW NEW NO:BURN;F 6 [facility] ALL CLINIC CLINIC FAC;WRG PSC PSC EVENT;/HO S TRANSFER PROSTHETI L8699 NEW NEW C IMPLANT 6 [facility] NOT CLINIC CLINIC OTHERWISE PSC PSC SPECIFIED CYSTO 13542 NEW NEW W/URETERO 6 [facility] SCOPY CLINIC CLINIC W/RMVL/MA PSC PSC [place] STONES CYSTO 16779 NEW NEW W/INSERT 6 [facility] URETERAL CLINIC CLINIC STENT PSC PSC ANES 28472 ANESTHESI GIBSON TYESHA TRURL 6 A FRAGMNTJ ASSOCIATE MANJ&/[place] [address] [facility] CAT ABDOMEN & 6 MEM HOSP MEM HOSP PELVIS INC INC W/[place] [address] [place] GARCIA ALL HEAD/BRAI 5 MEDICAL N W/[place] [address] [place] GARCIA ALL CERVICAL 5 MEDICAL SPINE W/O [...] [place] [address] [facility] ISIDORO SURG 5 [facility] GROSS&TYESHA ROSCOPIC EXAM COLONOSCO 42640 ENDOSCOPY ENDOSCOPY PY 5 AND AND FLEXIBLE SURGICAL SURGICAL WITH BAND CTR O CTR O LIGATION( S) EGD 56858 ENDOSCOPY ENDOSCOPY TRANSORAL 5 AND AND BIOPSY SURGICAL SURGICAL SINGLE/MU CTR O CTR O LTIPLE RADEX 24202 [place] BEINE ABDOMEN 1 5 MEDICAL MICHAEL IMAGING ANTEROPOS ASS TERIOR VIEW REMOVAL 45378 [facility] 5 PHYSICIAN WILLIE INE S GROUP DEVICE IUD INSERTION 30695 [facility] 5 PHYSICIAN PHYSICIAN INTRAUTER S GROUP S GROUP INE DEVICE IUD INC 64093 [facility] IMPLTJ 4 [facility] NEUROSTIM CLINIC ULATOR PSC ELTRD SACRAL NERVE RADIOLOGI 51073 [facility] CAT C EXAM 4 [facility]OS[facility]OS[facility] CHEST 2 INC INC VIEWS FRONTAL&L ATERAL RADEX 29083 [facility] CAT RIBS UNI 4 [facility] W/POSTERO INC INC ANT CH MINIMUM 3 VIEWS RADEX 94239 [place] BEINEKE RIBS 4 MEDICAL MICHAEL UNILATERA IMAGING [place] [address] [place] [address] [place] JEAN ABDOMEN & 4 MEDICAL CK PELVIS IMAGING W/O ASS CONTRAST MATERIAL ECG 88369 [facility] CAT ROUTINE 4 [facility] H[facility] ECG INC INC W/LEAST 12 LDS TRCG ONLY W/O I&R ECG 02774 SINC[facility] BREWERSON ROUTINE 4 OSCAR OSCAR ECG W/LEAST 12 LDS I&R ONLY LITHOTRIP 57786 YOVANY PEDROZA SY 4 JR THO JR THO XTRCORP SHOCK WAVE BLD GLU A4253 CLINIC CLINIC TEST/REAG 3 PHARMACY PHARMACY T STRIPS HOME BLD GLU MON-50 LANCETS A4259 CLINIC CLINIC PER BOX 3 PHARMACY PHARMACY OF 100 RADEX ABD 35671 RICE THO RICE THO COMPL 3 AQT ABD W/S/E/[place] V[address] [address] [place] [address] MITZI CARTAGENA ABDOMEN & 3 WILLA PELVIS W/O CONTRAST MATERIAL RADIOLOGI 21132 [facility] CAT C EXAM 3 [facility] CHEST 2 INC INC VIEWS FRONTAL&L ATERAL INJECTION J3301 JESSY SAMPSON HAM 3 JOANNA TRIAMCINO LONE ACETONIDE NOS 10 MG 3D 50250 [facility] CAT RENDERING 2 [facility] INC INC W/INTERP& [place] [address] EMORY CAT ABDOMEN & 2 [facility] PELVIS INC INC W/O CONTRAST MATERIAL RADEX 61756 [facility] JEAN ABDOMEN 1 2 MEDICAL CK IMAGING ANTEROPOS ASS TERIOR VIEW CATH PLMT 74336 AYDI GRULLON L HRT & 2 [facility] ARTS W/NJX & ANGIO IMG S&I RADIOLOGI 40277 CENTRAL BRADY J C EXAM 2 RADIOLOGY CHEST 2 ASSOC VIEWS FRONTAL&L ATERAL ECG 61286 YADI GRULLON ROUTINE 2 [facility]TH ROS[facility] ORTH ROSA ECG W/LEAST 12 LDS W/I&R SCR G0145 PATHOLOGY PATHOLOGY CYTOPATH 2 & & CERV/VAG CYTOLOGY CYTOLOGY SCR LAB LAB AUTO&MNL RSCR PHYS BLD GLU [id number] [facility] TEST/REAG 2 PHARMACY PHARMACY T STRIPS [id number] #[id number] HOME BLD GLU MON-50 CYST[place] 785[address] NEW NEW W/URETERO 2 [facility] W/RMVL/MA PSC PSC [place] STONES CYSTO [address] YOVANY PEDROZA W/INSERT 2 [place] [address] EMORY CAT ABDOMEN & 2 [facility] PELVIS INC INC W/O CONTRAST MATERIAL 3D 77917 EMORY CAT RENDERING 2 [facility] INC INC W/INTERP& POSTPROC DIFF WORK STATION 3D 56778 EMORY CAT RENDERING 2 [facility] INC INC W/INTERP& [place] [address] EMORY CAT ABDOMEN & 2 [facility] PELVIS [place] [address] EMORY CAT ABDOMINAL 2 [facility] REAL INC INC TIME W/IMAGE DOCUMENTA TION LIPID 99985 EM[facility] CAT PANEL 2 [facility] INC INC RADEX 24402 EM[facility] CAT HAND 2 [facility] MINIMUM 3 INC INC VIEWS COLLECTIO 96958 EMORY CAT N VENOUS 2 [facility] [place] [address] EMORY CAT THYROID 2 [facility] STIMULATI INC INC NG HORMONE TSH COMPREHEN 25236 EMORY CAT SIVE 2 [facility] METABOLIC INC INC PANEL RHEUMATOI 89278 EMORY CAT D FACTOR 2 [facility] QUANTITAT INC INC HAIM SEDIMENTA 00286 EMORY CAT TION RATE 2 [facility] RBC INC INC NON-AUTOM ATED CYCLIC 45293 EMORY CAT CITRULLIN 2 [facility] ATED INC INC PEPTIDE ANTIBODY THERAPEUT 59311 JESSY JIMÉNEZ IC 2 JOANNA JOANNA PROPHYLAC TIC/DX INJECTION SUBQ/IM 25 86545 EMORY CAT HYDROXY 2 [facility] INCLUDES INC INC FRACTIONS IF PERFORMED ANTINUCLE 79680 EMORY CAT AR 2 [facility] ANTIBODIE INC INC S LAM BLOOD [address] EM[facility] CAT COUNT 2 [facility] COMPLETE INC INC AUTO&AUTO DIFRNTL WBC DETERMINA 59231 ROB KIRKPATRICK TION 2 REFRACTIV E STATE RADEX 47283 [place] ABDOMEN 1 1 MEDICAL CK IMAGING ANTEROPOS ASS TERIOR VIEW RADEX 39763 [place] ABDOMEN 1 1 MEDICAL CK IMAGING ANTEROPOS ASS TERIOR VIEW RADEX 85139 [place] ABDOMEN 1 1 MEDICAL CK IMAGING ANTEROPOS ASS TERIOR VIEW SCR G0123 PATHOLOGY PATHOLOGY CYTOPATH 1 & & CERV/VAG CYTOLOGY CYTOLOGY SCR LAB LAB CYTOTECH UND PHYS SUPV RADEX 73228 [place] ABDOMEN 1 1 MEDICAL CK IMAGING ANTEROPOS ASS TERIOR VIEW RADEX 19023 [place] ABDOMEN 1 1 MEDICAL CK IMAGING ANTEROPOS ASS TERIOR VIEW RADEX 04462 [place] ABDOMEN 1 1 MEDICAL CK IMAGING ANTEROPOS ASS TERIOR VIEW RADEX 37976 [place] ABDOMEN 1 1 MEDICAL CK IMAGING ANTEROPOS ASS TERIOR VIEW MRI 81197 [place] SPINAL 1 MEDICAL CK CANAL IMAGING CERVICAL ASS W/O CONTRAST MATRL MRI 20751 [place] SPINAL 1 MEDICAL CK CANAL IMAGING THORACIC ASS W/O CONTRAST MATRL 3D 39550 [place] JE[place] RENDERING 1 MEDICAL CK W/INTERP IMAGING & ASS POSTPROCE SS SUPERVISI ON RADEX 05620 EM[facility] CAT ABDOMEN 1 1 [facility] INC INC ANTEROPOS TERIOR VIEW CUL 60131 EMORY CRUZON PRSMPTV 1 [facility] PTHGNC INC INC ORGANISMS SCR DNS CHART SPECIAL 81422 PATHOLOGY PATHOLOGY STAIN 1 & & GROUP 1 CYTOLOGY CYTOLOGY MICROORGA LAB LAB [facility] I&R URINE 20109 EM[facility] CAT 1 [facility] TEST INC INC VISUAL COLOR CMPRSN METHS ANES 43078 [facility] [place] [place] UPPER GI 1 ANESTH MIRTA ENDOSCOPY OF THE [place] [address] PATHOLOGY PATHOLOGY SURG 1 & & PATHOLOGY CYTOLOGY CYTOLOGY LAB LAB GROSS&TYESHA ROSCOPIC EXAM EGD 72216 [place] CHINO HALI TRANSORAL 1 MEDICAL BIOPSY SERV SINGLE/[place] [address] EM[facility] CAT INFUSION 1 [facility] THERAPY INC [place] [address] EM[facility] CAT INFUSION 1 [facility] THERAPY/P INC INC ROPHYLAXI S /DX 1ST TO 1 HR LIPID 49410 COMBINED COMBINED PANEL 1 PHYSICIAN PHYSICIAN S CHINO Marie LA COLLECTIO 85390 COMBINED COMBINED N VENOUS 1 PHYSICIAN PHYSICIAN BLOOD S CHINO Marie LA VENIPUNCT URE HEMOGLOBI 31406 COMBINED COMBINED N 1 PHYSICIAN PHYSICIAN GLYCOSYLA S LA S LA LAKISHA A1C RADEX 54109 [place] ABDOMEN 1 1 MEDICAL CK IMAGING ANTEROPOS ASS TERIOR VIEW URNLS DIP [address] STICK/TAB CLINIC CLINIC LET RGNT PSC PSC AUTO W/O MICROSCOP Y CULTURE 18279 COMBINED COMBINED BACTERIAL 1 PHYSICIAN PHYSICIAN S CHINO S CHINO [place] [address] LAB KIM LAB KIM PARATHORM 1 AMERIC AMERIC ONE HOLDING HOLDING RADIOLOGI 35020 [facility] C EXAM 1 Y Y CHEST 2 [facility] VIEWS FRONTAL&L ATERAL URNLS DIP 73406 [facility] 1 [facility] STICK/TAB UROLOGY UROLOGY LET RGNT PSC PSC AUTO W/O MICROSCOP Y COLLECTIO 62079 [facility] N VENOUS 1 LTH JR THO BLOOD UROLOGY VENIPUNCT PSC URE COLLECTIO 37599 EM[facility] CAT N VENOUS 0 [facility] BLOOD INC INC VENIPUNCT URE BASIC 09196 EM[facility] CAT METABOLIC 0 [facility] PANEL INC INC CALCIUM TOTAL RADIOLOGI 46989 EM[facility] CAT C EXAM 0 [facility] CHEST 2 INC INC VIEWS FRONTAL&L ATERAL BLOOD 10497 [facility] CAT COUNT 0 [facility] COMPLETE INC INC AUTO&AUTO DIFRNTL WBC RADEX ABD 14903 [facility] COMPL 0 BRANDY LITA AQT ABD EMERGENCY W/S/E/D PHYS VIEWS 1 VIEW CH RADEX 31272 [facility] [place] ABDOMEN 1 0 RADIOLOGY ANA ANTEROPOS TERIOR VIEW RADEX 02108 [facility] [place] ABDOMEN 1 0 RADIOLOGY ANA ANTEROPOS TERIOR VIEW CYSTO 42503 [facility] W/INSERT 0 LTH JR THO URETERAL UROLOGY STENT PSC LITHOTRIP 28349 [facility] SY 0 LTH JR THO XTRCORP UROLOGY SHOCK PSC WAVE ANES 32997 ANESTHESI JERILYN HEA LITHOTRP 0 A [employer] ASSOCIATE SHOCK S, PSC WAVE W/O WATER BATH CULTURE 52931 [facility] CAT BACTERIAL 0 [facility] INC INC QUANTTATI VE COLONY COUNT URINE THERAPEUT 31685 EMORYSWATHI CRUZON IC 0 [facility] INJECTION [place] [address] EMORYSWATHI CRUZON INFUSION 0 [facility] THERAPY/P INC INC ROPHYLAXI S /DX 1ST TO 1 HR BASIC 18192 [facility] METABOLIC 0 [facility] PANEL CALCIUM TOTAL COLLECTIO 13010 [facility] N VENOUS 0 [facility] BLOOD VENIPUNCT URE CULTURE 30606 [facility] BACTERIAL 0 [facility] QUANTTATI VE COLONY COUNT URINE BLOOD 70486 [facility] COUNT 0 [facility] COMPLETE AUTOMATED CALCULUS 51111 [facility] QUANTITAT 0 [facility] HAIM CHEMICAL URNLS DIP 28845 [facility] 0 [facility] STICK/TAB LET REAGENT AUTO MICROSCOP Y CYSTO 42213 [facility] W/INSERT 0 LTH JR THO URETERAL UROLOGY STENT PSC ANES 10166 [facility] MCGROARTY TRURL 0 ANESTHESI ROSA FRAGMNTJ A PSC MANJ&/RMV L URETERAL CALCULUS CYSTO 96643 [facility] W/URETERO 0 [facility] [place] [place] W/RMVL/MA [place] STONES URNLS DIP 68224 [facility] CAT 0 [facility] STICK/TAB INC INC LET REAGENT AUTO MICROSCOP Y BLOOD 58461 [facility] CRUZON COUNT 0 [facility] COMPLETE INC INC AUTO&AUTO DIFRNTL WBC CT PELVIS 20399 [place] JE[place] W/O 0 MEDICAL CK CONTRAST IMAGING MATERIAL ASS CULTURE 32721 EMORY CAT BACTERIAL 0 [facility] INC INC QUANTTATI VE COLONY COUNT URINE 3D 11140 EMORY CAT RENDERING 0 [facility] INC INC W/INTERP& [place] [address] [place] ABDOMEN 0 MEDICAL CK W/[place] [address] EM[facility] CAT INFUSION 0 [facility] THERAPY/P INC INC ROPHYLAXI S /DX 1ST TO 1 [place] [address] EM[facility] CAT INFUSION 0 [facility] THERAPY INC INC PROPHYLAX IS/DX EA HOUR THERAPEUT 57374 [facility] CAT IC 0 [facility] INJECTION INC INC IV PUSH EACH NEW DRUG BASIC 70549 EM[facility] CAT METABOLIC 0 [facility] PANEL INC INC CALCIUM TOTAL CYSTO [address] [facility] W/SIMPLE 0 LTH JR THO REMOVAL UROLOGY STONE & PSC STENT ANES [address] TRURL 0 A FRAGMNTJ ASSOCIATE MANJ&/RMV S, PSC L URETERAL CALCULUS CYSTO 93458 [facility] W/INSERT 0 LTH JR THO URETERAL UROLOGY STENT PSC RADEX 73375 [facility] [place] LUN[place] JAM ABDOMEN 1 0 RADIOLOGY ANTEROPOS TERIOR VIEW CYSTO 02387 [facility] W/URETERO 0 LTH JR THO SCOPY UROLOGY W/LITHOTR PSC IPSY INITIAL 64622 [facility] 0 LTH JR THO CARE/DAY UROLOGY 70 PSC MINUTES TRNSURETH [address] OBST FROM URETER&RE NAL PELV URETEROSC 5631 [facility] OPY [address] [place] [address] URETERAL 598 [facility] CATHETERI [address] [place] [address] ZATION OTHER 5732 [facility] CYSTOSCOP [address] [place] [address] [place] [address] [place] ABDOMEN 0 MEDICAL CK W/O IMAGING CONTRAST ASS MATERIAL CT PELVIS 12238 [place] W/O 0 MEDICAL CK CONTRAST IMAGING MATERIAL ASS 25 58808 LAB KIM LAB KIM HYDROXY 0 AMERIC AMERIC INCLUDES HOLDING HOLDING FRACTIONS IF PERFORMED COLLECTIO 95276 COMBINED COMBINED N VENOUS 0 PHYSICIAN PHYSICIAN BLOOD S LA S LA VENIPUNCT URE LIPID 18669 COMBINED COMBINED PANEL 0 PHYSICIAN PHYSICIAN S LA S LA COMPREHEN 55838 COMBINED COMBINED SIVE 0 PHYSICIAN PHYSICIAN [place] [address] LAB KIM LAB KIM FREE 0 AMERIC AMERIC [place] [address] COMBINED COMBINED THYROID 0 PHYSICIAN PHYSICIAN STIMULATI [place] [address] PATHOLOGY PATHOLOGY SURG 0 & & PATHOLOGY CYTOLOGY CYTOLOGY LAB LAB GROSS&[place] [address] EM[facility] CAT INFUSION 0 [facility] THERAPY INC [place] [address] EM[facility] CAT INFUSION 0 [facility] THERAPY/P INC INC ROPHYLAXI S /DX 1ST TO 1 HR URINE 96406 EM[facility] CAT 0 [facility] TEST INC INC VISUAL COLOR CMPRSN METHS COLONOSCO 83205 [place] CHINO HALI PY 0 MEDICAL W/BIOPSY SERV SINGLE/MU FOUNDATIO LTIPLE ANES 12117 COMMUNITY TAPIA GLE LOWER 0 ANESTH INTESTINE OF THE BLUE [place] [address] EMORY QUINN ACTIVTD 0 [facility] MITRA W/R&I PROF SERV </30 [place] [address] EM[facility] CAT ACTIVATED 0 [facility] ECG INC INC RECORD MONITOR 30 DAYS ECHO 81035 EMORY QUINN TTHRC R-T [address] W/WOM-MOD PROF SERV E COMPL SPEC&[place] [address] COMBINED COMBINED THYROID 0 PHYSICIAN PHYSICIAN STIMULATI S [place] [address] COMBINED COMBINED THYROID 0 PHYSICIAN PHYSICIAN STIMULATI S LAB S LAB NG HORMONE TSH LIPID 27606 COMBINED COMBINED PANEL 0 PHYSICIAN PHYSICIAN S LAB S LAB HEPATIC 37896 COMBINED COMBINED FUNCTION 0 PHYSICIAN PHYSICIAN PANEL S LAB S LAB BASIC 91507 COMBINED COMBINED METABOLIC 0 PHYSICIAN PHYSICIAN PANEL S LAB S LAB CALCIUM TOTAL COLLECTIO 93369 COMBINED COMBINED N VENOUS 0 PHYSICIAN PHYSICIAN BLOOD S LAB S LAB VENIPUNCT URE BLOOD 22050 COMBINED COMBINED COUNT 0 PHYSICIAN PHYSICIAN COMPLETE S LAB S LAB AUTO&AUTO DIFRNTL WBC SBSQ 11686 [facility] 0 DERRICK DERRICK CARE/DAY 15 MINUTES INITIAL 36955 [facility] 0 DERRICK DERRICK CARE/DAY 50 MINUTES IAADIADOO 25870 [facility], 9 [facility] [place] [address] PATHOLOGY PATHOLOGY SURG 9 & & PATHOLOGY CYTOLOGY CYTOLOGY LAB LAB GROSS&TYESHA ROSCOPIC EXAM BIOPSY 58516 [facility] PE[facility] LIVER 9 MEDICAL INEZ NEEDLE IMAGING PERCUTANE ASSOCIATE OUS S MODERATE 28167 [facility] CORNELIUS 9 MEDICAL INEZ SAME IMAGING PHYS/QHP ASSOCIATE EACH ADDL [place] [address] [place] [address] [facility] PENA ABDOMEN 9 MEDICAL INEZ W/O IMAGING CONTRAST ASSOCIATE MATERIAL S MODERATE 72611 [facility] CORNELIUS 9 MEDICAL INEZ SAME IMAGING PHYS/QHP ASSOCIATE 5/>YRS [place] [address] [place] [address] GHANSHYAM PENA GUIDANCE 9 MEDICAL INEZ [place]LE [place] [address] EMORY CAT INFUSION 9 [facility] THERAPY/P INC INC ROPHYLAXI S /DX 1ST TO 1 HR 3D 17088 [facility] PACHECOJEAN, RENDERING 9 MEDICAL INEZ IMAGING W/INTERP& ASSOCIATE POSTPROC S DIFF WORK STATION SPCL STN 86454 PATHOLOGY PATHOLOGY 2 I&R 9 & & EXCPT CYTOLOGY CYTOLOGY MICROORG/ LAB LAB ENZYME/IM CYT TECHNETIU A9541 EMORY Marrero TC-99M 9 [facility] SULFUR INC INC COLLOID DX UP TO 20 MCI GASTRIC 90201 [facility] JEAN, EMPTYING 9 MEDICAL INEZ IMAGING IMAGING STUDY ASSOCIATE S COMPREHEN 65443 EMORY CAT SIVE 9 [facility] METABOLIC INC INC PANEL IADNA 17247 EMORY CAT HEPATITIS 9 [facility] C QUANT INC INC & REVERSE TRANSCRIP TION COLLECTIO 62166 EMORY CAT N VENOUS 9 [facility] BLOOD INC INC VENIPUNCT URE BLOOD 82952 EMORY CAT COUNT 9 [facility] COMPLETE INC INC AUTO&[place] [address] EMORY CAT GAMMAGLOB 9 [facility] ULIN IGA INC INC IGD IGG IGM EACH THROMBOPL 83835 EM[facility] CAT ASTIN 9 [facility] TIME INC INC PARTIAL PLASMA/WH OLE BLOOD MICROSOMA 83089 EM[facility] CAT L 9 [facility] ANTIBODIE INC INC S EACH FLUORESCE 29024 EM[facility] CAT NT 9 [facility] NONNFCT INC INC AGT ANTB TITER EA ANTIBODY PROTHROMB 41996 EMORY CAT IN TIME 9 [place] [address] EMORY CAT ABDOMINAL 9 [facility] REAL INC INC TIME W/IMAGE DOCUMENTA TION OPHTH 82025 ROB RIVAS, MEDICAL 9 CHERELLE A CHERELLE A XM&EVAL COMPRHNSV ESTAB PT 1/> SCREENING 01434 EM[facility] CAT 9 [facility] MAMMOGRAP INC INC HY BILATERAL LEVONORGE J7302 [facility] STREL-RLS [facility] INTRAUTER SARAH N CNTRACPT 52 MG REMOVAL 77358 [facility] INTRAUTER 9 [facility] IN[facility]IN[facility] OF DEVICE SARAH IUD SCR G0145 PATHOLOGY PATHOLOGY CYTOPATH 9 & & CERV/VAG CYTOLOGY CYTOLOGY SCR LAB LAB AUTO&MNL RSCR PHYS COMPUTER- 96171 [facility] JEAN, AIDED 9 MEDICAL INEZ DETECTION IMAGING ASSOCIATE SCREENING S MAMMOGRAP HY URINE 00696 [facility] TEST [facility]IN[facility] OF VISUAL SARAH COLOR CMPRSN METHS IMMUNOASS 48694 LAB KIM LAB KIM AY 9 AMERIC AMERIC ANALYTE HOLDING HOLDING QUAL/SEMI QUAL MULTIPLE STEP ANTINUCLE 87097 LAB KIM LAB KIM AR 9 AMERIC AMERIC ANTIBODIE HOLDING HOLDING S LAM IRON 03219 COMBINED COMBINED BINDING 9 PHYSICIAN PHYSICIAN CAPACITY S LAB S LAB ALPHA-1-A 39316 LAB KIM LAB KIM NTITRYPSI 9 AMERIC AMERIC N TOTAL HOLDING HOLDING ACUTE 70944 LAB KIM LAB KIM HEPATITIS 9 AMERIC AMER[place] [address] COMBINED COMBINED AMYLASE 9 PHYSICIAN PHYSICIAN S LAB S LAB CERULOPLA 18857 LAB KIM LAB KIM SMIN 9 [employer] [place] [address] COMBINED COMBINED IRON 9 PHYSICIAN PHYSICIAN S LAB S LAB COLLECTIO 04392 COMBINED COMBINED N VENOUS 9 PHYSICIAN PHYSICIAN BLOOD S LAB S LAB VENIPUNCT URE US SOFT 30949 [place] SAUL PINEDA 9 MEDICAL LORNA P HEAD & IMAGING NECK REAL ASSOCIATE TIME S IMGE DOCM RADIOLOGI 70012 EMORY CAT C EXAM 9 [facility] CHEST 2 INC INC VIEWS FRONTAL&L ATERAL PRESSURIZ 63177 EM[facility] CAT ED/NONPRE 9 [facility] SSURIZED INC INC INHALATIO N TREATMENT HEMOGLOBI 18948 COMBINED COMBINED N 9 PHYSICIAN PHYSICIAN GLYCOSYLA S LAB S LAB LAKISHA A1C LIPID 31363 COMBINED COMBINED PANEL 9 PHYSICIAN PHYSICIAN S LAB S LAB COLLECTIO 43486 COMBINED COMBINED N VENOUS 9 PHYSICIAN PHYSICIAN BLOOD [place] [address] COMBINED COMBINED THYROID 9 PHYSICIAN PHYSICIAN STIMULATI S LAB S LAB NG HORMONE TSH COMPREHEN 16764 COMBINED COMBINED SIVE 9 PHYSICIAN PHYSICIAN METABOLIC S LAB S LAB PANEL COMPREHEN 68441 COMBINED COMBINED SIVE 9 PHYSICIAN PHYSICIAN [place]AB[place] [address] COMBINED COMBINED THYROID 9 PHYSICIAN PHYSICIAN STIMULATI S LAB S LAB NG HORMONE TSH COLLECTIO 79459 COMBINED COMBINED N VENOUS 9 PHYSICIAN PHYSICIAN BLOOD S LAB S LAB VENIPUNCT URE LIPID 60243 COMBINED COMBINED PANEL 9 PHYSICIAN PHYSICIAN S LAB S LAB HEMOGLOBI 73167 COMBINED COMBINED N 9 PHYSICIAN PHYSICIAN GLYCOSYLA S LAB S LAB LAKISHA A1C BLD GLU A4253 [facility] TEST/REAG 8 PHARMACY PHARMACY T STRIPS #591 #591 HOME BLD GLU MON-50 COLLECTIO 50491 EMORY CAT N VENOUS 8 [facility] BLOOD INC INC VENIPUNCT URE US SOFT 43135 [facility] PENA TISSUE 8 MEDICAL INEZ HEAD & IMAGING NECK REAL [place] [address] EMORY CAT THYROID 8 [facility] STIMULATI INC INC NG HORMONE TSH GONADOTRO 57702 EMORY CAT PIN 8 [facility] LUTEINIZI INC INC NG HORMONE GONADOTRO 18468 EMORY CAT PIN 8 [facility] FOLLICLE INC INC STIMULATI NG HORMONE RADIOLOGI 95716 [facility] CORNELIUS EXAM 8 MEDICAL INEZ CHEST 2 IMAGING VIEWS ASSOCIATE FRONTAL&L S ATERAL PHYSICAL 61356 EMORY CAT THERAPY 8 [facility] EVALUATIO INC INC N THERAPEUT 88845 EMORY CAT IC PX 1/> 8 [facility] AREAS INC INC EACH 15 MIN EXERCISES E-STIM G0283 EMORY CAT 1/> AREAS 8 [facility] OTH THAN INC INC WND CARE PART TX PLAN IM ADM 64422 EM[facility] CAT PRQ ID 8 [facility] SUBQ/IM INC INC NJXS 1 VACCINE TDAP 57437 EM[facility] CAT VACCINE 7 8 [facility] YRS/> IM INC INC SIMPLE 57730 EM[facility] CAT REPAIR 8 [facility] F/E/E/N/L INC INC /M 2.5CM/< RADEX [address] SHOULDER 8 [facility] COMPLETE REGIONAL REGIONAL MINIMUM 2 MED CTR MED CTR VIEWS INJECTION J1885 ST ST 8 [facility] KETOROLAC REGIONAL REGIONAL MED CTR MED CTR TROMETHAM INE PER [address] PROPH/DX 8 [facility] NJX [facility] REGIONAL SUBQ/IM MED CTR MED CTR Encounters Encounter Start End Date Code Location Performer Type Date OFFICE 93253 [facility] PSC MINUTES OFFICE 76798 [facility] OUTPATIEN 7 7 L SURGIAL T VISIT 40 ASSOCIATE MINUTES [facility] EMORY - 7 7 [facility] OUTPATIEN [facility] UNIVERS[facility] - 7 7 Y OF OUTPATIEN [facility] EMORY - 7 7 [facility]ORY - 7 7 [facility] EMORY - 7 7 [facility]PATI[facility] OFFICE 89393 [facility] DIVYA OUTPATIEN 7 7 L SURGIAL T NEW 45 MINUTES ASSOCIATE EMERGENCY 85873 [facility] DEPT 6 6 PRIMARY VISIT CARE HIGH PHYSICIAN SEVERITY& S THREAT FUNCJ OFFICE 57657 [place] JESSY OUTPATIEN 6 6 [place] T VISIT INTERNAL 15 MED MINUTES HOME [facility], 6 6 HOME INPATIENT HEALTH AGENCY HOME [facility], 6 6 HOME INPATIENT HEALTH AGENCY [facility], 6 6 HOME INPATIENT HEALTH AGENCY OFFICE 81329 [place] [facility] 6 6 [place] JR THO T VISIT CLINIC 15 PSC MINUTES HOSPITAL EMORY - 6 6 [facility] OUTPATIEN INC HOME [facility], 6 6 HOME INPATIENT HEALTH AGENCY EMERGENCY 02563 [facility] DEPT 6 6 PRIMARY KET VISIT CARE HIGH PHYSICIAN SEVERITY& S THREAT [facility], 6 6 HOME INPATIENT HEALTH AGENCY OFFICE 38905 [place] OUTPATIEN 6 6 [place] JR THO T VISIT CLINIC 15 PSC MINUTES OFFICE 27117 [place] OUTPATIEN 6 6 PATRICIA JR T VISIT CLINIC 15 PSC MINUTES HOSPITAL EMORY - 6 6 [facility] OUTPATIEN [facility] T OFFICE 96668 PIERO MENDES OUTPATIEN 6 6 PATRICIA II EAR T VISIT CLINIC 25 PSC MINUTES OFFICE 23540 [place] JESSY OUTPATIEN 5 5 BANNER T VISIT INTERNAL 15 MED MINUTES HOME [facility], 5 5 HOME INPATIENT HEALTH AGENCY HOSPITAL EMORY - 5 5 [facility] OUTPATIEN [facility] EMORY - 4 4 [facility] OUTPATIEN [facility] EMORY - 4 4 [facility] OUTPATIEN [facility] T EMERGENCY 02922 JOANNA OSCAR JOANNA OSCAR DEPT 4 4 VISIT HIGH SEVERITY& THREAT [facility] CENTRAL - 3 3 SABIANISM OUTPATIEN [facility] T OFFICE 70281 JESSY JESSY OUTPATIEN [address] [facility] T VISIT 15 MINUTES HOSPITAL [facility] - 3 3 N OUTPATIEN [facility] HOSPITA OFFICE 85765 JESSY JESSY OUTPATIEN 3 3 JOANNA JOANNA T VISIT 15 MINUTES OFFICE 16596 JESSY JESSY OUTPATIEN 3 3 JOANNA JOANNA T VISIT 15 MINUTES HOSPITAL EMORY - 3 3 [facility] OUTPATIEN INC T OFFICE 30712 CHINO HALI CHINO HALI OUTPATIEN 3 3 T VISIT 25 MINUTES OFFICE 30399 JESSY JESSY OUTPATIEN 2 2 JOANNA JOANNA T VISIT 15 MINUTES HOSPITAL EMORY - 2 2 [facility] OUTPATIEN [facility] EMORY - 2 2 [facility] OUTPATIEN [facility] T OFFICE 00293 JESSY JESSY OUTPATIEN 2 2 JOANNA JOANNA T VISIT 15 MINUTES HOSPITAL EMORY - 2 2 [facility] OUTPATIEN [facility] EMORY - 2 2 [facility] OUTPATIEN [facility] EMORY - 2 2 [facility] OUTPATIEN [facility] T OFFICE 30001 SURYA [place] OUTPATIEN 2 2 NAN JARVIS T VISIT 15 MINUTES HOSPITAL EMORY - 2 2 [facility] OUTPATIEN [facility] T OFFICE 37916 JESSY JESSY OUTPATIEN 2 2 JOANNA JOANNA T VISIT 15 MINUTES HOSPITAL EMORY - 1 1 [facility] OUTPATIEN [facility] EMORY - 1 1 [facility] OUTPATIEN [facility] T OFFICE 71541 [facility] BOBO OUTPATIEN 1 1 L SURGIAL MITESH T NEW 30 MINUTES ASSOCIATE OFFICE 46435 [place] CHINO HALI OUTPATIEN 1 1 MEDICAL T VISIT SERV 25 FOUNDATIO MINUTES OFFICE 95547 [place] HAL[place] OUTPATIEN 1 1 MEDICAL T VISIT SERV 25 FOUNDATIO MINUTES HOSPITAL EMORY - 1 1 [facility] OUTPATI[facility] EMORY - 1 1 [facility] - [facility] - 1 1 [facility] - 1 1 [facility] OUTPATIEN [facility] OFFICE 61723 TAWNYA [facility]INO [facility] 1 MEDICAL T VISIT SERV 25 FOUNDATIO MINUTES OFFICE 19866 [facility] PSC MINUTES OFFICE 14932 [place] [facility] 1 [place] T VISIT INTERNAL 15 MEDI [facility] UNIVERSIT - 1 1 [facility] T OFFICE 36328 [facility] 1 1 MN AND T VISIT PHYSICIAN 15 S ASSIST [facility] EMORY - 0 0 [facility]EN [facility] T OFFICE 83343 TAWNYA LAL OUTPATIEN 0 0 MEDICAL T VISIT SERV 25 FOUNDATIO MINUTES EMERGENCY 43249 [facility] KI 0 0 BRANDY LITA DEPARTMEN EMERGENCY T VISIT PHYS HIGH/URGE NT SEVERITY HOSPITAL EMORY - 0 0 [facility] EMORY - 0 0 [facility] T EMERGENCY 38074 EDIL BETANCOURT 0 0 EMERGENCY GRE DEPARTMEN SERVICES T VISIT HIGH/URGE NT SEVERITY EMERGENCY 85275 EMORY 0 0 [facility] T VISIT LIMITED/M INOR PROB OFFICE 16844 TAMMIE PEDROZA OUTPATIEN 0 0 LTH JR THO T VISIT UROLOGY 10 PSC MINUTES OFFICE 42480 TAMMIE PEDROZA OUTPATIEN 0 0 LT JR THO T VISIT UROLOGY 15 PSC MINUTES [facility]OSPITAL [facility] - 0 0 E[facility] OUTPATIEN T EMERGENCY 52327 EDIL HUDSON DEPT 0 0 EMERGENCY T[place]HA VISIT SERVICES HIGH SEVERITY& THREAT [facility] EMORY - 0 0 [facility] OUTPATIEN INC T EMERGENCY 89337 EMORY 0 0 [facility] DEPARTMEN INC T VISIT HIGH/URGE NT SEVERITY [facility] - 0 0 HOSPITAL INPATIENT EMERGENCY 95111 EDIL LAINEZ DEPT 0 0 EMERGENCY VISIT SERVICES HIGH SEVERITY& THREAT [facility] OFFICE 69337 TAW[facility]A LULÚ LAL OUTPATIEN 0 0 MEDICAL T VISIT SERV 25 FOUNDATIO MINUTES [facility] EMORY - 0 0 [facility] OUTPATIEN INC T OFFICE 06913 TAW[facility]A PERALTAEDNA JARAMILLO OUTPATIEN 0 0 MEDICAL T VISIT SERV 25 FOUNDATIO MINUTES OFFICE 41287 [facility] DIVYA OUTPATIEN 0 0 MEDICAL SIM A T VISIT SERV 40 FOUNDATIO MINUTES OFFICE 20881 TAWNYA CHINO, OUTPATIEN 0 0 MEDICAL VARINDER T VISIT SERV 15 FOUNDATIO MINUTES HOSPITAL EMORY - 0 0 [facility] INC T OFFICE 19262 TAWNYA CHINO, OUTPATIEN 0 0 MEDICAL VARINDER T VISIT SERV 15 FOUNDATIO MINUTES OFFICE 87986 [place], OUTPATIEN 0 0 MEDICAL VARINDER T VISIT SERV 15 FOUNDATIO MINUTES OFFICE 14514 [facility] OUTPATIEN 9 9 VALLEY KRYSTYNA A T VISIT INTERNAL 15 MED MINUTES OFFICE 76174 TAWNYA ZEYAD CHINOPATIANTHONY 9 9 MEDICAL VARINDER T VISIT SERV 25 FOUNDATIO MINUTES HOSPITAL EMROY - 9 9 [facility] INC T HOSPITAL EMORY - 9 9 [facility] INC T HOSPITAL EMORY [facility] 9 9 [facility]PAT[facility] INC T OFFICE 41102 TAWNYA CHINO CONSULTAT 9 9 MEDICAL VARINDER ION SERV NEW/ESTAB FOUNDATIO PATIENT 80 MIN HOSPITAL EMORY [facility] 9 9 [facility]PAT[facility] INC T OFFICE 97990 [place] M[facility] OUTPATIEN 9 9 LUIS BAPTISTE, T VISIT INTERNAL MITRA F 15 MED [facility] EMORY - 9 9 [facility]PAT[facility]EN INC T OFFICE 65112 [place] [facility] OUTPATIEN 9 9 LUIS BAPTISTE, T VISIT INTERNAL MITRA F 15 MED [facility] EMORY - 9 9 [facility] INC T EMERGENCY 36704 EDIL HUDSON, 9 9 EMERGENCY [facility] DEPARTMEN SERVICES T VISIT MODERATE ASSOCIATE SEVERITY S HOSPITAL EMORY - 9 9 [facility] OUTPATIEN INC T EMERGENCY 05803 [facility] T VISIT LOW/MODER SEVERITY EMERGENCY [id number] [facility] 9 9 [facility]PARTMEN INC T VISIT LIMITED/M INOR PROB HOSPITAL [facility] - 9 9 [facility] OUTPATIEN [facility] T EMERGENCY 95940 EDIL FELDMAN, 9 9 EMERGENCY [facility] DEPARTMEN SERVICES O T VISIT MODERATE ASSOCIATE SEVERITY S OFFICE 14698 [facility] OUTPATIEN 9 9 LUIS BAPTISTE T VISIT INTERNAL MITRA F 15 MED MINUTES OFFICE [id number] RAFA RAFA, OUTPATIEN 9 9 SAPNA Arevalo T VISIT 25 MINUTES OFFICE 31069 [facility] 9 9 Cate SMITH JR VISIT INTERNAL MITRA F 15 MED MINUTES HOSPITAL [facility] - 8 8 [facility] T OFFICE [id number] [facility] OUTPATI[facility] 8 8 LUIS BAPTISTE, T VISIT INTERNAL MITRA F 15 MED MINUTES OFFICE 05803 [facility] OUTPATIEN 8 8 LUIS BAPTISTE, T VISIT INTERNAL MITRA F 15 MED MINUTES HOSPITAL [facility] - 8 8 [facility] T EMERGENCY 69952 [place] 8 8 [facility] DEPARTMEN [facility] T VISIT HIGH/URGE NT SEVERITY HOSPITAL [facility] - 8 8 [facility]IEN INC T OFFICE 64624 [facility] [facility] OUTPATIEN 8 8 LUIS BAPTISTE, Cate VISIT INTERNAL MITRA F 15 MED MINUTES EMERGENCY [address] 8 8 [facility] T VISIT MED CTR LOW/MODER SEVERITY [facility]PITAL ST - 8 8 [facility] T MED CTR OFFICE [id number] [facility] [facility] OUTPATIEN 8 8 LUIS BAPTISTE, Cate VISIT INTERNAL MITRA F 25 MED MINUTES OFFICE 47830 [place] ALYSHA, OUTPATIEN 8 8 LUIS FINK T VISIT INTERNAL 15 MED MINUTES OFFICE 63661 [facility] 8 [facility] VISIT [facility]IN[facility] OF CLINIC OF 15 MINUTES NEREYDA DAWN [facility] OFFICE 03920 NAVEEN HODGE OUTPATIEN 8 8 WON [facility] T VISIT 15 MINUTES
--- OUTSIDE RECORDS SUMMARY | 2017-02-06 09:31 | External Medical Summary Rpt ---
Demographics Preferred Language Chinese Marital Status Unknown Hoahaoism Affiliation Unknown Race Unknown Ethnic Group Unknown Author Author EDUARDO Address Unknown Phone Immunization No patient found.
--- OUTSIDE RECORDS SUMMARY | 2017-02-06 09:31 | External Medical Summary Rpt ---
Demographics Preferred Language Arabic Marital Status Unknown Shinto Affiliation Unknown Race Unknown Ethnic Group Unknown Author Author EDUARDO Address Unknown Phone Immunization No patient found.
--- OUTSIDE RECORDS SUMMARY | 2017-02-06 09:32 | External Medical Summary Rpt ---
Author Author [employer]UARD[employer], [employer] Organization [employer] Address Unknown Phone Unavailable Results Comprehensive metabolic 2000 panel in Serum or Plasma Observa Value Referen Units Interpr Notes Date tion ce etation Range Albumin/G 1.1 - 1.8 No Normal No Feb 05 lobulin informati informati 2016 5:28 [Mass on in on in PM ratio] in source source Serum or data data Plasma Albumin 3.4 - 5.0 gm/dL Normal No Feb 05 [Mass/vol informati 2016 5:28 ume] in on in PM Serum or source Plasma data Alkaline 46 - 116 U/L Normal No Feb 05 phosphata informati 2017 5:28 se on in PM [Enzymati source c data activity/ volume] in Serum or Plasma Bilirubin 0.2 - 1.0 mg/dL Normal No Feb 05 .total informati 2016 5:28 [Mass/vol on in PM ume] in source Serum or data Plasma Urea 7 - 18 mg/dL Normal No Feb 05 nitrogen informati 2016 5:28 [Mass/vol on in PM ume] in source Serum or data Plasma Calcium 8.5 - mg/dL Normal No Feb 05 [Mass/vol 10.1 informati 2016 5:28 ume] in on in PM Serum or source Plasma data Chloride 98 - 107 mmoL/L Normal No Feb 05 [Moles/vo informati 2016 5:28 lume] in on in PM Serum or source Plasma data Carbon 21.0 - mmoL/L Normal No Feb 05 dioxide, 32.0 informati 2016 5:28 total on in PM [Moles/vo source lume] in data Serum or Plasma Creatinin 0.55 - mg/dL Normal No Feb 05 e 1.02 informati 2016 5:28 [Mass/vol on in PM ume] in source Serum or data Plasma Estimated 59- ML/MIN No REFERENCE Feb 05 informati RANGE: 2017 5:28 glomerula on in >60 PM r source ML/MIN/1. filtratio data 73 SQUARE n rate METERSIf (GF this patient is -A merican, then multiply theresult by 1.210. Globulin 1.3 - 3.2 gm/dL High No Feb 05 [Mass/vol informati 2016 5:28 ume] in on in PM Serum source data Glucose 74 - 106 mg/dL Low No Feb 05 [Mass/vol informati 2016 5:28 ume] in on in PM Serum or source Plasma data Potassium 3.5 - 5.1 mmoL/L Low Feb 05 2016 5:28 [Moles/vo CRITICAL PM lume] in RESULTS Serum or Plasma RESU LTS CALLED TO: 02/05/172030 O'Kenneth,Ka itlyn Sodium 136 - 145 mmoL/L Normal No Feb 05 [Moles/vo informati 2016 5:28 lume] in on in PM Serum or source Plasma data Aspartate 15 - 37 U/L Normal No Feb 052016 5:28 aminotran on in PM sferase source [Enzymati data c activity/ volume] in Serum or Plasma Alanine 12 - 78 U/L Normal No Feb 05 aminotran 2016 5:28 sferase on in PM [Enzymati source c data activity/ volume] in Serum or Plasma Protein 6.4 - 8.2 gm/dL Normal No Feb 05 [Mass/vol informati 2016 5:28 ume] in on in PM Serum or source Plasma data Magnesium [Moles/volume] in Unspecified specimen Observa Value Referen Units Interpr Notes Date tion ce etation Range Magnesium 1.4 - 2.2 mg/dL Low No Feb 05ati 2016 5:28 [Moles/vo on in PM lume] in source Unspecifi data ed specimen CBC W Auto Differential panel in Blood Observa Value Referen Units Interpr Notes Date tion ce etation Range Basophils 0 - 0.2 K/MM3 Normal No Feb 052016 5:28 [#/volume on in PM ] in source Blood by data Automated count Basophils 0.1 - 2.0 % Normal No Feb 05 /100 informati 2016 5:28 leukocyte on in PM s in source Blood by data Automated count Eosinophi 0.0 - 0.4 K/mm3 High No Feb 05 ls ati 2016 5:28 [#/volume on in PM ] in source Blood by data Automated count Eosinophi 0.1 - % Normal No Feb 05 ls/100 12.0 informati 2016 5:28 leukocyte on in PM s in source Blood by data Automated count Granulocy 1.8 - 7.8 K/mm3 High No Jan 16 freeman informati 2016 5:28 [#/volume on in PM ] in source Blood by data Automated count Granulocy 37.0 - % High No Feb 05 freeman/100 80.0 informati 2016 5:28 leukocyte on in PM s in source Blood by data Automated count Hematocri 37.0 - % Normal No Feb 05 t [Volume 47.0 informati 2016 5:28 on in PM Fraction] source of Blood data Hemoglobi 12.2 - g/dL Normal No Feb 05 n 16.2 informati 2016 5:28 [Mass/vol on in PM ume] in source Blood data Lymphocyt 0.7 - 4.5 K/mm3 Normal No Feb 05 es informati 2016 5:28 [#/volume on in PM ] in source Unspecifi data ed specimen by Automated count Lymphocyt 10 - 50.0 % Low No Feb 05 es informati 2016 5:28 [#/volume on in PM ] in source Unspecifi data ed specimen by Automated count Erythrocy 27 - 31.2 pg Normal No Feb 05 te mean informati 2016 5:28 corpuscul on in PM ar source hemoglobi data n [Entitic mass] Erythrocy 31.8 - g/dl Normal No Feb 05 te mean 35.4 informati 2016 5:28 corpuscul on in PM ar source hemoglobi data n concentra tion [Mass/vol ume] by Automated count Erythrocy 82.2 - fl Normal No Feb 05 te mean 97.8 informati 2016 5:28 corpuscul on in PM ar volume source [Entitic data volume] by Automated count Monocytes 0.1 - 1.0 K/mm3 Normal No Jan 16 informati 2016 5:28 [#/volume on in PM ] in source Blood by data Automated count Monocytes 1.7 - 9.3 % Low No Jan 16 /100 informati 2016 5:28 leukocyte on in PM s in source Blood by data Automated count Platelet 7.4 - fl Normal No Feb 05 mean 10.4 informati 2016 5:28 volume on in PM [Entitic source volume] data in Blood by Automated count Platelets 142 - 424 K/mm3 No No Feb 05 informati informati 2016 5:28 [#/volume on in on in PM ] in source source Blood data data Erythrocy 4.2 - 5.4 M/mm3 Normal No Feb 05 freeman informati 2016 5:28 [#/volume on in PM ] in source Amniotic data fluid Erythrocy 11.5 - % Normal No Feb 05 te 17.5 informati 2016 5:28 distribut on in PM ion width source [Entitic data volume] by Automated count Leukocyte 4.8 - K/MM3 High No Feb 05 s 10.8 inform2016 5:28 [#/volume on in PM ] in source Blood data Magnesium [Moles/volume] in Unspecified specimen Observa Value Referen Units Interpr Notes Date tion ce etation Range Magnesium 1.4 - 2.2 mg/dL Low No Feb 02 inform2016 8:28 [Moles/vo on in AM lume] in source Unspecifi data ed specimen Natriutietic peptide B [Mass/volume] in Serum or Plasma Observa Value Referen Units Interpr Notes Date tion ce etation Range Natriutie 0 - 100 pg/mL High No Feb 02 tic informati 2016 8:28 peptide B on in AM source [Mass/vol data ume] in Serum or Plasma Lactate [Moles/volume] in Blood Observa Value Referen Units Interpr Notes Date tion ce etation Range Lactate 0.4 - 2.0 mmol/L High An Feb 02 [Moles/vo elevated 2017 8:28 lume] in Lactic AM Blood Acid is suggestiv e of sepsis and shouldbe repeated within 6 hours of initial testing. CBC W Auto Differential panel in Blood Observa Value Referen Units Interpr Notes Date tion ce etation Range Basophils 0 - 0.2 K/MM3 Normal No Feb 02 informati 2016 8:28 [#/volume on in AM ] in source Blood by data Automated count Basophils 0.1 - 2.0 % Normal No Feb 02 informati 2016 8:28 leukocyte on in AM s in source Blood by data Automated count Eosinophi 0.0 - 0.4 K/mm3 High No Feb 02 ls informati 2016 8:28 [#/volume on in AM ] in source Blood by data Automated count Eosinophi 0.1 - % Normal No Feb 02 ls/100 12.0 informati 2017 8:28 leukocyte on in AM s in source Blood by data Automated count Granulocy 1.8 - 7.8 K/mm3 Normal No Feb 02 freeman informati 2016 8:28 [#/volume on in AM ] in source Blood by data Automated count Granulocy 37.0 - % High No Feb 02 freeman/100 80.0 informati 2016 8:28 leukocyte on in AM s in source Blood by data Automated count Hematocri 37.0 - % Normal No Feb 02 t [Volume 47.0 informati 2016 8:28 on in AM Fraction] source of Blood data Hemoglobi 12.2 - g/dL No Feb 02 n 16.2 informati informati 2017 8:28 [Mass/vol on in on in AM ume] in source source Blood data data Lymphocyt 0.7 - 4.5 K/mm3 Normal No Feb 02 es informati 2016 8:28 [#/volume on in AM ] in source Unspecifi data ed specimen by Automated count Lymphocyt 10 - 50.0 % Normal No Feb 02 es informati 2016 8:28 [#/volume on in AM ] in source Unspecifi data ed specimen by Automated count Erythrocy 27 - 31.2 pg Normal No Feb 02 te mean informati 2016 8:28 corpuscul on in AM ar source hemoglobi data n [Entitic mass] Erythrocy 31.8 - g/dl Normal No Feb 02 te mean 35.4 informati 2016 8:28 corpuscul on in AM ar source hemoglobi data n concentra tion [Mass/vol ume] by Automated count Erythrocy 82.2 - fl Normal No Feb 02 te mean 97.8 informati 2016 8:28 corpuscul on in AM ar volume source [Entitic data volume] by Automated count Monocytes 0.1 - 1.0 K/mm3 Normal No Feb 02 informati 2017 8:28 [#/volume on in AM ] in source Blood by data Automated count Monocytes 1.7 - 9.3 % Low No Feb 02 /100 informati 2017 8:28 leukocyte on in AM s in source Blood by data Automated count Platelet 7.4 - fl Low No Feb 02 mean 10.4 informati 2016 8:28 volume on in AM [Entitic source volume] data in Blood by Automated count Platelets 142 - 424 K/mm3 No No Feb 02 informati informati 2016 8:28 [#/volume on in on in AM ] in source source Blood data data Erythrocy 4.2 - 5.4 M/mm3 Low No Feb 02 freeman informati 2016 8:28 [#/volume on in AM ] in source Amniotic data fluid Erythrocy 11.5 - % Normal No Feb 02 te 17.5 informati 2016 8:28 distribut on in AM ion width source [Entitic data volume] by Automated count Leukocyte 4.8 - K/MM3 Normal No Feb 02 s 10.8 informati 2016 8:28 [#/volume on in AM ] in source Blood data CBC W Auto Differential panel in Blood Observa Value Referen Units Interpr Notes Date tion ce etation Range Basophils 0 - 0.2 K/MM3 Normal No Jan 31 informati 2016 7:20 [#/volume on in AM ] in source Blood by data Automated count Basophils 0.1 - 2.0 % Normal No Jan 31 / informati 2016 7:20 leukocyte on in AM s in source Blood by data Automated count Eosinophi 0.0 - 0.4 K/mm3 Normal No Jan 31 ls informati 2016 7:20 [#/volume on in AM ] in source Blood by data Automated count Eosinophi 0.1 - % Normal No Jan 31 ls/100 12.0 informati 2016 7:20 leukocyte on in AM s in source Blood by data Automated count Granulocy 1.8 - 7.8 K/mm3 Normal No Jan 31 freeman informati 2016 7:20 [#/volume on in AM ] in source Blood by data Automated count Granulocy 37.0 - % High No Jan 31 freeman/100 80.0 informati 2016 7:20 leukocyte on in AM s in source Blood by data Automated count Hematocri 37.0 - % Low No Jan 31 t [Volume 47.0 informati 2016 7:20 on in AM Fraction] source of Blood data Hemoglobi 12.2 - g/dL Low No Jan 31 n 16.2 informati 2016 7:20 [Mass/vol on in AM ume] in source Blood data Lymphocyt 0.7 - 4.5 K/mm3 Normal No Jan 31 es informati 2016 7:20 [#/volume on in AM ] in source Unspecifi data ed specimen by Automated count Lymphocyt 10 - 50.0 % Normal No Aug 11 es informati 2016 7:20 [#/volume on in AM ] in source Unspecifi data ed specimen by Automated count Erythrocy 27 - 31.2 pg Normal No Jan 31 te mean informati 2016 7:20 corpuscul on in AM ar source hemoglobi data n [Entitic mass] Erythrocy 31.8 - g/dl Normal No Jan 31 te mean 35.4 informati 2016 7:20 corpuscul on in AM ar source hemoglobi data n concentra tion [Mass/vol ume] by Automated count Erythrocy 82.2 - fl Normal No Jan 31 te mean 97.8 informati 2016 7:20 corpuscul on in AM ar volume source [Entitic data volume] by Automated count Monocytes 0.1 - 1.0 K/mm3 Normal No Jan 31 informati 2016 7:20 [#/volume on in AM ] in source Blood by data Automated count Monocytes 1.7 - 9.3 % Normal No Jan 31 /100 informati 2016 7:20 leukocyte on in AM s in source Blood by data Automated count Platelet 7.4 - fl Normal No Jan 31 mean 10.4 informati 2016 7:20 volume on in AM [Entitic source volume] data in Blood by Automated count Platelets 142 - 424 K/mm3 Normal No Jan 31 informati 2016 7:20 [#/volume on in AM ] in source Blood data Erythrocy 4.2 - 5.4 M/mm3 Low No Jan 31 freeman informati 2016 7:20 [#/volume on in AM ] in source Amniotic data fluid Erythrocy 11.5 - % Normal No Jan 31 te 17.5 informati 2016 7:20 distribut on in AM ion width source [Entitic data volume] by Automated count Leukocyte 4.8 - K/MM3 No No Jan 31 s 10.8 informati informati 2016 7:20 [#/volume on in on in AM ] in source source Blood data data Basic metabolic panel in Blood Observa Value Referen Units Interpr Notes Date tion ce etation Range Urea 7 - 18 mg/dL Normal No Jan 31 nitrogen informati 2016 7:20 [Mass/vol on in AM ume] in source Serum or data Plasma Calcium 8.5 - mg/dL Low No Jan 31 [Mass/vol 10.1 informati 2016 7:20 ume] in on in AM Serum or source Plasma data Chloride 98 - 107 mmoL/L Normal No Jan 31 [Moles/vo informati 2016 7:20 lume] in on in AM Serum or source Plasma data Carbon 21.0 - mmoL/L Normal No Jan 31 dioxide, 32.0 informati 2016 7:20 total on in AM [Moles/vo source lume] in data Serum or Plasma Creatinin 0.55 - mg/dL Normal No Jan 31 e 1.02 informati 2016 7:20 [Mass/vol on in AM ume] in source Serum or data Plasma Creatinin 50 - 200 ML/MIN Normal No Jan 31 e renal informati 2016 7:20 clearance on in AM source predicted data by Cockcroft -Gault formula Estimated 59- ML/MIN No REFERENCE Jan 31 informati RANGE: 2017 7:20 glomerula on in >60 AM r source ML/MIN/1. filtratio data 73 SQUARE n rate METERSIf (GF this patient is -A merican, then multiply theresult by 1.210. Glucose 74 - 106 mg/dL High No Jan 31 [Mass/vol informati 2016 7:20 ume] in on in AM Serum or source Plasma data Potassium 3.5 - 5.1 mmoL/L Normal No Jan 31 informati 2016 7:20 [Moles/vo on in AM lume] in source Serum or data Plasma Sodium 136 - 145 mmoL/L Normal No Jan 31 [Moles/vo informati 2016 7:20 lume] in on in AM Serum or source Plasma data UPPER RESPIRATORY PANEL,PCR Observa Value Referen Units Interpr Notes Date tion ce etation Range Adenovi NOT NOT No No No Jan 31 kevin DNA DETECTE DETECTE informa informa informa 2017 D tion in tion in tion in 6:50 AM [Presen source source source ce] in data data data Unspeci fied specime n by Probe & target amplifi cation method Bordete NOT NOT No No No Jan 31 lla DETECTE DETECTE informa informa informa 2017 pertuss D tion in tion in tion in 6:50 AM is DNA source source source [Presen data data data ce] in Unspeci fied specime n by Probe & target amplifi cation method Chlamyd NOT NOT No No No Jan 31 ophila DETECTE DETECTE informa informa informa 2017 pneumon D tion in tion in tion in 6:50 AM iae DNA source source source data data data [Presen ce] in Unspeci fied specime n by Probe & target amplifi cation method SARS NOT NOT No No No Jan 31 coronav DETECTE DETECTE informa informa informa 2016 irus D tion in tion in tion in 6:50 AM RNA source source source [Presen data data data ce] in Unspeci fied specime n by Probe & target amplifi cation method Human NOT NOT No No No Jan 31 coronav DETECTE DETECTE informa informa informa 2016 irus D tion in tion in tion in 6:50 AM HKU1 source source source RNA data data data detecti on by SARS NOT NOT No No No Jan 31 coronav DETECTE DETECTE informa informa informa 2016 irus D tion in tion in tion in 6:50 AM RNA source source source [Presen data data data ce] in Unspeci fied specime n by Probe & target amplifi cation method SARS NOT NOT No No No Jan 31 coronav DETECTE DETECTE informa informa informa 2016 irus D tion in tion in tion in 6:50 AM RNA source source source [Presen data data data ce] in Unspeci fied specime n by Probe & target amplifi cation method Influen NOT NOT No No No Jan 31 za DETECTE DETECTE informa informa informa 2017 virus A D tion in tion in tion in 6:50 AM H3 RNA source source source data data data [Presen ce] in Unspeci fied specime n by Probe & target amplifi cation method Influen NOT NOT No No No Jan 31 za DETECTE DETECTE informa informa informa 2017 virus A D tion in tion in tion in 6:50 AM H1 RNA source source source data data data [Presen ce] in Isolate by Probe & target amplifi cation method Influen NOT NOT No No No Jan 31 za DETECTE DETECTE informa informa informa 2016 virus A D tion in tion in tion in 6:50 AM H1 RNA source source source data data data [Presen ce] in Unspeci fied specime n by Probe & target amplifi cation method Influen NOT NOT No No No Jan 31 za DETECTE DETECTE informa informa informa 2017 virus B D tion in tion in tion in 6:50 AM RNA source source source [Presen data data data ce] in Unspeci fied specime n by Probe & target amplifi cation method Influen NOT NOT No No No Aug 11 za DETECTE DETECTE informa informa informa 2017 virus A D tion in tion in tion in 6:50 AM RNA source source source [Presen data data data ce] in Unspeci fied specime n by Probe & target amplifi cation method Human NOT NOT No No No Aug 11 metapne DETECTE DETECTE informa informa informa 2017 umoviru D tion in tion in tion in 6:50 AM s Ag source source source [Presen data data data ce] in Unspeci fied specime n Mycopla NOT NOT No No No Aug 11 sma DETECTE DETECTE informa informa informa 2017 pneumon D tion in tion in tion in 6:50 AM iae DNA source source source data data data [Presen ce] in Unspeci fied specime n by Probe & target amplifi cation method Parainf NOT NOT No No No Aug 11 luenza DETECTE DETECTE informa informa informa 2017 virus 1 D tion in tion in tion in 6:50 AM RNA source source source [Presen data data data ce] in Unspeci fied specime n by Probe & target amplifi cation method Parainf NOT NOT No No No Aug 11 luenza DETECTE DETECTE informa informa informa 2017 virus 2 D tion in tion in tion in 6:50 AM RNA source source source [Presen data data data ce] in Unspeci fied specime n by Probe & target amplifi cation method Parainf NOT NOT No No No Aug 11 luenza DETECTE DETECTE informa informa informa 2017 virus 3 D tion in tion in tion in 6:50 AM RNA source source source [Presen data data data ce] in Unspeci fied specime n by Probe & target amplifi cation method Parainf NOT NOT No No No Aug 11 luenza DETECTE DETECTE informa informa informa 2017 virus 4 D tion in tion in tion in 6:50 AM RNA source source source [Presen data data data ce] in Isolate by Probe & target amplifi cation method Rhinovi NOT NOT No No No Jan 31 kevin+Ent DETECTE DETECTE informa informa informa 2017 eroviru D tion in tion in tion in 6:50 AM s RNA source source source [Presen data data data ce] in Unspeci fied specime n by Probe & target amplifi cation method Respira NOT NOT No No No Jan 31 tory DETECTE DETECTE informa informa informa 2017 syncyti D tion in tion in tion in 6:50 AM al source source source virus data data data RNA [Presen ce] in Unspeci fied specime n by Probe & target amplifi cation method Glucose [Mass/volume] in Capillary blood by Glucometer Observa Value Referen Units Interpr Notes Date ce etation Range Glucose 70 - 110 mg/dl High No Jan 31 [Mass/vol informati 2016 6:18 ume] in on in AM Capillary source blood by data Glucomete r Glucose [Mass/volume] in Capillary blood by Glucometer Observa Value Referen Units Interpr Notes Date ce etation Range Glucose 70 - 110 mg/dl High No Jan 30 [Mass/vol alert informati 2016 9:16 ume] in on in PM Capillary source blood by data Glucomete r Bacteria identified in Sputum by Culture Observa Value Referen Units Interpr Notes Date ce etation Range 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 Y Hold specimen in OE? N Bacteri WILL No No No No Jan 30 a HOLD informa informa informa informa 2016 identif YEAST tion in tion in tion in tion in 7:40 PM ied in FOR 5 source source source source Sputum DAYS, data data data data by CONTACT Culture LAB FOR FURTHER TESTING Bacteri YEAST- No No No No Jan 30 a HARRISON informa informa informa informa 2016 identif tion in tion in tion in tion in 7:40 PM ied in ALBICAN source source source source Sputum S data data data data by Culture Bacteri Yeast No No No No Jan 30 a informa informa informa informa 2017 identif tion in tion in tion in tion in 7:40 PM ied in source source source source Sputum data data data data by Culture Glucose [Mass/volume] in Capillary blood by Glucometer Observa Value Referen Units Interpr Notes Date ti ce etation Range Glucose 70 - 110 mg/dl High No Jan 30 [Mass/vol informati 2017 5:04 ume] in on in PM Capillary source blood by data Glucomete r Glucose [Mass/volume] in Capillary blood by Glucometer Observa Value Referen Units Interpr Notes Date ti ce etation Range Glucose 70 - 110 mg/dl High No Jan 30 [Mass/vol informati 2016 ume] in on in 11:46 AM Capillary source blood by data Glucomete r Glucose [Mass/volume] in Capillary blood by Glucometer Observa Value Referen Units Interpr Notes Date ti ce etation Range Glucose 70 - 110 mg/dl High No Jan 30 [Mass/vol informati 2016 6:34 ume] in on in AM Capillary source blood by data Glucomete r CBC W Auto Differential panel in Blood Observa Value Referen Units Interpr Notes Date ti ce etation Range Basophils 0 - 0.2 K/MM3 Normal No Jan 30 informati 2016 6:30 [#/volume on in AM ] in source Blood by data Automated count Basophils 0.1 - 2.0 % Normal No Jan 30 / informati 2017 6:30 leukocyte on in AM s in source Blood by data Automated count Eosinophi 0.0 - 0.4 K/mm3 Normal No Jan 30 ls informati 2016 6:30 [#/volume on in AM ] in source Blood by data Automated count Eosinophi 0.1 - % Normal No Jan 30 ls/100 12.0 informati 2017 6:30 leukocyte on in AM s in source Blood by data Automated count Granulocy 1.8 - 7.8 K/mm3 High No Jan 30 freeman informati 2016 6:30 [#/volume on in AM ] in source Blood by data Automated count Granulocy 37.0 - % High No Jan 30 freeman/100 80.0 informati 2017 6:30 leukocyte on in AM s in source Blood by data Automated count Hematocri 37.0 - % Low No Jan 30 t [Volume 47.0 informati 2016 6:30 on in AM Fraction] source of Blood data Hemoglobi 12.2 - g/dL Low No Jan 30 n 16.2 informati 2017 6:30 [Mass/vol on in AM ume] in source Blood data Lymphocyt 0.7 - 4.5 K/mm3 Normal No Aug 10 es informati 2017 6:30 [#/volume on in AM ] in source Unspecifi data ed specimen by Automated count Lymphocyt 10 - 50.0 % Low No Jan 30 es informati 2016 6:30 [#/volume on in AM ] in source Unspecifi data ed specimen by Automated count Erythrocy 27 - 31.2 pg High No Jan 30 te mean informati 2017 6:30 corpuscul on in AM ar source hemoglobi data n [Entitic mass] Erythrocy 31.8 - g/dl Normal No Jan 30 te mean 35.4 informati 2016 6:30 corpuscul on in AM ar source hemoglobi data n concentra tion [Mass/vol ume] by Automated count Erythrocy 82.2 - fl Normal No Jan 30 te mean 97.8 informati 2016 6:30 corpuscul on in AM ar volume source [Entitic data volume] by Automated count Monocytes 0.1 - 1.0 K/mm3 Normal No Jan 30 informati 2016 6:30 [#/volume on in AM ] in source Blood by data Automated count Monocytes 1.7 - 9.3 % Normal No Jan 10 /100 informati 2017 6:30 leukocyte on in AM s in source Blood by data Automated count Platelet 7.4 - fl Normal No Jan 30 mean 10.4 informati 2017 6:30 volume on in AM [Entitic source volume] data in Blood by Automated count Platelets 142 - 424 K/mm3 Normal No Jan 30 informati 2016 6:30 [#/volume on in AM ] in source Blood data Erythrocy 4.2 - 5.4 M/mm3 Low No Jan 30 freeman informati 2017 6:30 [#/volume on in AM ] in source Amniotic data fluid Erythrocy 11.5 - % Normal No Jan 30 te 17.5 informati 2016 6:30 distribut on in AM ion width source [Entitic data volume] by Automated count Leukocyte 4.8 - K/MM3 Normal No Jan 30 s 10.8 informati 2016 6:30 [#/volume on in AM ] in source Blood data Basic metabolic panel in Blood Observa Value Referen Units Interpr Notes Date tion ce etation Range Urea 7 - 18 mg/dL Normal No Jan 30 nitrogen informati 2017 6:30 [Mass/vol on in AM ume] in source Serum or data Plasma Calcium 8.5 - mg/dL Low No Jan 30 [Mass/vol 10.1 informati 2016 6:30 ume] in on in AM Serum or source Plasma data Chloride 98 - 107 mmoL/L High No Jan 30 [Moles/vo informati 2016 6:30 lume] in on in AM Serum or source Plasma data Carbon 21.0 - mmoL/L Normal No Jan 30 dioxide, 32.0 informati 2017 6:30 total on in AM [Moles/vo source lume] in data Serum or Plasma Creatinin 0.55 - mg/dL Normal No Jan 30 e 1.02 informati 2017 6:30 [Mass/vol on in AM ume] in source Serum or data Plasma Creatinin 50 - 200 ML/MIN Normal No Jan 30 e renal informati 2017 6:30 clearance on in AM source predicted data by Cockcroft -Gault formula Estimated 59- ML/MIN No REFERENCE Jan 30 informati RANGE: 2017 6:30 glomerula on in >60 AM r source ML/MIN/1. filtratio data 73 SQUARE n rate METERSIf (GF this patient is -A merican, then multiply theresult by 1.210. Glucose 74 - 106 mg/dL High No Jan 30 [Mass/vol informati 2016 6:30 ume] in on in AM Serum or source Plasma data Potassium 3.5 - 5.1 mmoL/L Normal No Jan 30 informati 2016 6:30 [Moles/vo on in AM lume] in source Serum or data Plasma Sodium 136 - 145 mmoL/L Normal No Jan 30 [Moles/vo informati 2016 6:30 lume] in on in AM Serum or source Plasma data Glucose [Mass/volume] in Capillary blood by Glucometer Observa Value Referen Units Interpr Notes Date ti ce etation Range Glucose 70 - 110 mg/dl High No Jan 29 [Mass/vol informati 2016 9:21 ume] in on in PM Capillary source blood by data Glucomete r Glucose [Mass/volume] in Capillary blood by Glucometer Observa Value Referen Units Interpr Notes Date ti ce etation Range Glucose 70 - 110 mg/dl High No Jan 29 [Mass/vol informati 2016 4:29 ume] in on in PM Capillary source blood by data Glucomete r Glucose [Mass/volume] in Capillary blood by Glucometer Observa Value Referen Units Interpr Notes Date tion ce etation Range Glucose 70 - 110 mg/dl High No Jan 9 [Mass/vol informati 2017 ume] in on in 11:15 AM Capillary source blood by data Glucomete r Glucose [Mass/volume] in Capillary blood by Glucometer Observa Value Referen Units Interpr Notes Date ti etation Range Glucose 70 - 110 mg/dl High No Jan 29 [Mass/vol informati 2017 6:34 ume] in on in AM Capillary source blood by data Glucomete r CBC W Auto Differential panel in Blood Observa Value Referen Units Interpr Notes Date ti ce etation Range Basophils 0 - 0.2 K/MM3 Normal No Jan 29 informati 2017 6:30 [#/volume on in AM ] in source Blood by data Automated count Basophils 0.1 - 2.0 % Normal No Jan 29 / informati 2017 6:30 leukocyte on in AM s in source Blood by data Automated count Eosinophi 0.0 - 0.4 K/mm3 Normal No Jan 29 ls informati 2017 6:30 [#/volume on in AM ] in source Blood by data Automated count Eosinophi 0.1 - % Normal No Jan 29 ls/100 12.0 informati 2017 6:30 leukocyte on in AM s in source Blood by data Automated count Granulocy 1.8 - 7.8 K/mm3 High No Jan 29 freeman informati 2017 6:30 [#/volume on in AM ] in source Blood by data Automated count Granulocy 37.0 - % High No Jan 29 freeman/100 80.0 informati 2017 6:30 leukocyte on in AM s in source Blood by data Automated count Hematocri 37.0 - % Low No Jan 29 t [Volume 47.0 informati 2017 6:30 on in AM Fraction] source of Blood data Hemoglobi 12.2 - g/dL Low No Jan 29 n 16.2 informati 2017 6:30 [Mass/vol on in AM ume] in source Blood data Lymphocyt 0.7 - 4.5 K/mm3 Low No Jan 29 es informati 2017 6:30 [#/volume on in AM ] in source Unspecifi data ed specimen by Automated count Lymphocyt 10 - 50.0 % Low No Jan 29 es informati 2016 6:30 [#/volume on in AM ] in source Unspecifi data ed specimen by Automated count Erythrocy 27 - 31.2 pg Normal No Jan 29 te mean informati 2017 6:30 corpuscul on in AM ar source hemoglobi data n [Entitic mass] Erythrocy 31.8 - g/dl Normal No Jan 29 te mean 35.4 informati 2017 6:30 corpuscul on in AM ar source hemoglobi data n concentra tion [Mass/vol ume] by Automated count Erythrocy 82.2 - fl Normal No Jan 29 te mean 97.8 informati 2017 6:30 corpuscul on in AM ar volume source [Entitic data volume] by Automated count Monocytes 0.1 - 1.0 K/mm3 Normal No Jan 29 informati 2017 6:30 [#/volume on in AM ] in source Blood by data Automated count Monocytes 1.7 - 9.3 % Normal Jan 29 informati 2016 6:30 leukocyte on in AM s in source Blood by data Automated count Platelet 7.4 - fl Normal Jan 29 mean 10.4 informati 2017 6:30 volume on in AM [Entitic source volume] data in Blood by Automated count Platelets 142 - 424 K/mm3 Normal No Jan 29 informati 2017 6:30 [#/volume on in AM ] in source Blood data Erythrocy 4.2 - 5.4 M/mm3 Low No Jan 29 freeman informati 2017 6:30 [#/volume on in AM ] in source Amniotic data fluid Erythrocy 11.5 - % Normal No Jan 29 te 17.5 informati 2017 6:30 distribut on in AM ion width source [Entitic data volume] by Automated count Leukocyte 4.8 - K/MM3 High No Jan 29 s 10.8 informati 2017 6:30 [#/volume on in AM ] in source Blood data Differential panel, method unspecified - Observa Value Referen Units Interpr Notes Date tion ce etation Range Neutrophi 0 - 8 % Normal Jan 29 ls.band informati 2017 6:30 form/100 on in AM leukocyte source s in data Blood by Automated count Eosinophi 0 - 3 % Normal Jan 29 ls/100 informati 2017 6:30 leukocyte on in AM s in source Blood by data Manual count LYMPH 4 10 - 50 % Low No Jan 29 informa 2017 tion in 6:30 AM source data Monocytes 2 - 9 % Normal No Jan 29 informati 2016 6:30 leukocyte on in AM s in source Blood by data Automated count Platele NORMAL No No No No Jan 29 ts informa informa informa informa 2016 [Presen tion in tion in tion in tion in 6:30 AM ce] in source source source source Blood data data data data by Light microsc opy Neutrophi 42 - 76 % High No Jan 29 ls informati 2016 6:30 [#/volume on in AM ] in source Blood by data Automated count Cells No #CELLS No No Jan 29 Counted informati informati informati 2016 6:30 Total [#] on in on in on in AM in Blood source source source data data data Basic metabolic panel in Blood Observa Value Referen Units Interpr Notes Date tion ce etation Range Urea 7 - 18 mg/dL Normal No Jan 29 nitrogen informati 2016 6:30 [Mass/vol on in AM ume] in source Serum or data Plasma Calcium 8.5 - mg/dL Normal No Jan 29 [Mass/vol 10.1 informati 2016 6:30 ume] in on in AM Serum or source Plasma data Chloride 98 - 107 mmoL/L Normal No Jan 29 [Moles/vo informati 2017 6:30 lume] in on in AM Serum or source Plasma data Carbon 21.0 - mmoL/L Normal No Jan 29 dioxide, 32.0 informati 2017 6:30 total on in AM [Moles/vo source lume] in data Serum or Plasma Creatinin 0.55 - mg/dL No No Jan 29 e 1.02 informati informati 2016 6:30 [Mass/vol on in on in AM ume] in source source Serum or data data Plasma Creatinin 50 - 200 ML/MIN No No Jan 29 e renal informati informati 2016 6:30 clearance on in on in AM source source predicted data data by Cockcroft -Gault formula Estimated 59- ML/MIN No REFERENCE Jan 29 informati RANGE: 2017 6:30 glomerula on in >60 AM r source ML/MIN/1. filtratio data 73 SQUARE n rate METERSIf (GF this patient is -A merican, then multiply theresult by 1.210. Glucose 74 - 106 mg/dL High No Jan 29 [Mass/vol informati 2016 6:30 ume] in on in AM Serum or source Plasma data Potassium 3.5 - 5.1 mmoL/L Normal No Aug 9 informati 2016 6:30 [Moles/vo on in AM lume] in source Serum or data Plasma Sodium 136 - 145 mmoL/L Normal No Jan 29 [Moles/vo informati 2016 6:30 lume] in on in AM Serum or source Plasma data Glucose [Mass/volume] in Capillary blood by Glucometer Observa Value Referen Units Interpr Notes Date tion ce etation Range Glucose 70 - 110 mg/dl High No Jan 28 [Mass/vol informati 2016 8:22 ume] in on in PM Capillary source blood by data Glucomete r Glucose [Mass/volume] in Capillary blood by Glucometer Observa Value Referen Units Interpr Notes Date tion ce etation Range Glucose 70 - 110 mg/dl High No Jan 28 [Mass/vol informati 2016 4:52 ume] in on in PM Capillary source blood by data Glucomete r Glucose [Mass/volume] in Capillary blood by Glucometer Observa Value Referen Units Interpr Notes Date ti ce etation Range Glucose 70 - 110 mg/dl High No Jan 28 [Mass/vol informati 2016 ume] in on in 11:37 AM Capillary source blood by data Glucomete r CBC W Auto Differential panel in Blood Observa Value Referen Units Interpr Notes Date tion ce etation Range Basophils 0 - 0.2 K/MM3 Normal No Jan 28 informati 2016 6:20 [#/volume on in AM ] in source Blood by data Automated count Basophils 0.1 - 2.0 % Normal No Jan 28 informati 2017 6:20 leukocyte on in AM s in source Blood by data Automated count Eosinophi 0.0 - 0.4 K/mm3 Normal No Jan 28 ls informati 2016 6:20 [#/volume on in AM ] in source Blood by data Automated count Eosinophi 0.1 - % Normal No Jan 28 ls/100 12.0 informati 2016 6:20 leukocyte on in AM s in source Blood by data Automated count Granulocy 1.8 - 7.8 K/mm3 Normal No Jan 28 freeman informati 2016 6:20 [#/volume on in AM ] in source Blood by data Automated count Granulocy 37.0 - % High No Jan 28 freeman/100 80.0 informati 2016 6:20 leukocyte on in AM s in source Blood by data Automated count Hematocri 37.0 - % Normal No Jan 28 t [Volume 47.0 informati 2017 6:20 on in AM Fraction] source of Blood data Hemoglobi 12.2 - g/dL Normal No Jan 28 n 16.2 informati 2017 6:20 [Mass/vol on in AM ume] in source Blood data Lymphocyt 0.7 - 4.5 K/mm3 Low No Jan 28 es informati 2017 6:20 [#/volume on in AM ] in source Unspecifi data ed specimen by Automated count Lymphocyt 10 - 50.0 % Low No Jan 28 es informati 2017 6:20 [#/volume on in AM ] in source Unspecifi data ed specimen by Automated count Erythrocy 27 - 31.2 pg Normal No Jan 28 te mean informati 2017 6:20 corpuscul on in AM ar source hemoglobi data n [Entitic mass] Erythrocy 31.8 - g/dl Normal No Jan 28 te mean 35.4 informati 2017 6:20 corpuscul on in AM ar source hemoglobi data n concentra tion [Mass/vol ume] by Automated count Erythrocy 82.2 - fl Normal No Jan 28 te mean 97.8 informati 2017 6:20 corpuscul on in AM ar volume source [Entitic data volume] by Automated count Monocytes 0.1 - 1.0 K/mm3 Normal No Jan 28 informati 2017 6:20 [#/volume on in AM ] in source Blood by data Automated count Monocytes 1.7 - 9.3 % Normal No Jan 8 /100 informati 2017 6:20 leukocyte on in AM s in source Blood by data Automated count Platelet 7.4 - fl Low No Jan 28 mean 10.4 informati 2017 6:20 volume on in AM [Entitic source volume] data in Blood by Automated count Platelets 142 - 424 K/mm3 Normal No Jan 28 informati 2017 6:20 [#/volume on in AM ] in source Blood data Erythrocy 4.2 - 5.4 M/mm3 Low No Jan 28 freeman informati 2017 6:20 [#/volume on in AM ] in source Amniotic data fluid Erythrocy 11.5 - % Normal No Jan 28 te 17.5 informati 2017 6:20 distribut on in AM ion width source [Entitic data volume] by Automated count Leukocyte 4.8 - K/MM3 Normal No Jan 28 s 10.8 informati 2017 6:20 [#/volume on in AM ] in source Blood data Differential panel, method unspecified - Observa Value Referen Units Interpr Notes Date tion ce etation Range Neutrophi 0 - 8 % Normal No Jan 28 ls.band informati 2016 6:20 form/100 on in AM leukocyte source s in data Blood by Automated count Eosinophi 0 - 3 % Normal No Jan 28 ls/100 informati 2016 6:20 leukocyte on in AM s in source Blood by data Manual count LYMPH 10 10 - 50 % Normal No Jan 28 informa 2017 tion in 6:20 AM source data Monocytes 2 - 9 % Normal No Jan 28 informati 2016 6:20 leukocyte on in AM s in source Blood by data Automated count Platele NORMAL No No No No Jan 28 ts informa informa informa informa 2016 [Presen tion in tion in tion in tion in 6:20 AM ce] in source source source source Blood data data data data by Light microsc opy Neutrophi 42 - 76 % High No Jan 28 ls informati 2016 6:20 [#/volume on in AM ] in source Blood by data Automated count Cells No #CELLS No No Jan 28 Counted informati informati informati 2017 6:20 Total [#] on in on in on in AM in Blood source source source data data data Fibrin D-dimer FEU [Mass/volume] in Platelet poor plasma Observa Value Referen Units Interpr Notes Date ti ce etation Range Fibrin 0 - 400 ng/mL High Jan 28 D-dimer alert NOTIFICAT 2017 6:20 FEU ION AM [Mass/vol RESULT ume] in Ada Platelet neThe poor D-Dimer plasma values are presented in units of mass(ng/m L) ofD-Dimer units(DDU ).This test has been FDA approved as an aid in the assessmen tand evaluatio n of suspected DIC, and thromboem bolic eventsinc luding PE and DVT. However, it does not have approvalf or cut-off values for the exclusion of these condition s.
--- OUTSIDE RECORDS SUMMARY | 2017-02-06 09:32 | External Medical Summary Rpt ---
Author Author EDUARDO Ajubeo, EDUARDO Ajubeo Organization [employer] Address Unknown Phone Unavailable [...] Notes Date ce etation Range COMMENTS TO AED TRAINER: PER PNEUMONIA PROTOCOL Collected by nurse? Y [...]
[2017-02-06 10:31] VITALS: BP 115/56
[2017-02-06 11:05] LABS: LYMPH # 1.6 K/mm3 (0.7-4.5)
[2017-02-06 11:07] VITALS: BP 115/56
--- NOTE | 2017-02-06 11:20 | RADIOLOGY REPORT PS360 ---
CHEST(2 VIEWS-NOT PORTABLE) HISTORY: DYSPNEA ORDERING PHYSICIAN: Sunday Austin MD PATIENT AGE: 51 years COMPARISON: 02/02/2017 FINDINGS: Normal heart size. Calcified nodes are present in the right azygous region. Bilateral lower lobe pneumonia has shown some improvement. Small bilateral effusions have also improved. There does remain some residual consolidation in both lower lobes with tiny bilateral effusions. IMPRESSION: Persistent but improving bilateral lower lobe pneumonia with effusions.
[2017-02-06 11:24] LABS: ARTERIAL PO2 75.4 MMHG (80-100)
[2017-02-06 11:25] LABS: ALLEN'S TEST ACCEPTABLE; ARTERIAL ABE 7.4 MMOL/L (-2.4-+2.3); ARTERIAL TCO2 31.8 MMOL/L (23-27); OXYGEN 24%
[2017-02-06 11:28] LABS: LYMPH % 12.8 % (10-50.0)
--- NOTE | 2017-02-06 11:35 | RADIOLOGY REPORT PS360 ---
ABDOMEN-FLAT UPRIGHT HISTORY: Recent bowel resection with colostomy DYSPNEA ORDERING PHYSICIAN: Sunday Austin MD PATIENT AGE: 51 years COMPARISON: None FINDINGS: No intestinal obstruction or free air is evident. Bowel gas pattern is nonspecific. A rounded opacity is present in the left mid abdominal region consistent with colostomy. A neurostimulator device overlies the sacrum and there is an IUD in place. IMPRESSION: As above, no acute finding
--- NOTE | 2017-02-06 11:53 | PHARMACY CLINIC NOTE ---
Patient Demographics Patient Demographics Admission date: 02/06/17 Date: 02/06/17 Time: 1152 Allergies Coded Allergies: Sulfa (Sulfonamide Antibiotics) (02/02/17) aripiprazole (From ABILIFY) (02/02/17) citalopram (From CELEXA) (UNKNOWN 02/02/17) hydrocodone (From LORTAB) (02/02/17) olanzapine (From ZYPREXA) (02/02/17) quetiapine (From SEROQUEL) (02/02/17) HEIGHT- FT: 5 IN: 0.00 K.411 VTE General Information Disclaimer The following section includes nursing documentation that has been pulled in for pharmacy review. VTE prophylaxis NQF [id number] VTE prophylaxis ordered? Yes Type of prophylaxis/treatment: LAKISHA at 1152
[2017-02-06 12:27] VITALS: BP 110/54
[2017-02-06 12:32] LABS: HEMOGLOBIN 10.9 g/dL (12.2-16.2)
--- NOTE | 2017-02-06 13:35 | HISTORY AND PHYSICAL REPORT ---
Demographics: Admit date: 02/06/17 Chief complaint: fever, shortness of breath PRIMARY DIAGNOSIS: HYPOKALEMIA Allergies: Coded Allergies: Sulfa (Sulfonamide Antibiotics) (02/02/17) aripiprazole (From ABILIFY) (02/02/17) citalopram (From CELEXA) (UNKNOWN 02/02/17) hydrocodone (From LORTAB) (02/02/17) olanzapine (From ZYPREXA) (02/02/17) quetiapine (From SEROQUEL) (02/02/17) History of present illness: History of present illness: 51 yr old female presented to clinic today with concerns of recurring fevers, dyspnea at rest and worse with exertion, presyncopal symptoms and malaise. She underwent major abdominal surgery on 01/07/17 and then was admitted here on with bilateral pneumonia and effusions. Improved over that admission and was discharged home on PO antibiotics but returned to ED 02/02/17 and transferred to [facility] in [place] for further management. Daughter reports that she was also treated for pnuemonia there and was discharged on 02/04/17 with prescription for Augmentin, Doxycycline and nystatin suspension. She was also seen by cardiology during her admission to [facility]. Labs ordered by myself last night showed hypokalemia and hypomagnesemia with persistent mild leukocytosis. She was febrile last night and tachypneic in clinic today and thus, was admitted for electrolyte replacement, IV antibiotics, FU CXR and monitoring of oxygenation. Past medical history: Family HX Diabetes No CAD Yes Hypertension Yes Hyperlipidemia Yes Cancer Yes TB No Immunization HX DT/Tetanus 5-10 Years Ago Flu Refused Pneumonia Never Had TB Test in last year No General CAD? No Angina: Yes DC: No Hypertension? Yes Hyperlipidemia? Yes CHF? No DVT? No PE? No COPD? Yes Asthma? Yes Anemia? No GERD? No Gastric ulcers? No GI Bleed? No Hernia? No Thyroid Problems? Yes Hypothyroidism? Yes CVA? No Seizures? No Diabetes? Yes Insulin Dependent: No Insulin Pump: No Home FSBS? Yes Renal Insuffiency? Yes UTI? No Stones? Yes BPH? No GB Disease: No Nephritic Syndrome? No Asplenia? No Hepatitis? Yes Sickle Cell Disease? No Arthritis? No Migraines? No Cataracts? No Glaucoma? No MRSA? No HIV? No TB? No Anxiety? Yes Depression? Yes Cancer? No More? Yes Additional hx: BIPOLAR, DDD SUDDEN ONSET RIGHT CHEST PAIN, COUGHING SOA THIS EVENING Past Surgical HX Previous Surgery?Y HEART CATH IUD HEART ABLATION BLADDER TACK STENT PLACEMENT-R URETERS STENT REMOVED LITHOTRIPSY X 2 BASKET EXTRACTION X 1 INTERSTEM IMPLANT COLON RESECTION SX COLOSTOMY Current home meds: Active Scripts Azithromycin (Zithromax) 250 MG PO DAILY #6 TAB Prov: 01/31/17 CEFDINIR (Cefdinir) 300 MG PO BID #10 CAP Prov: 01/31/17 Device (Nebulizer, Compressor) 1 UNIT XX UD #1 DEV Prov: 01/31/17 ALBUTEROL SULFATE (Accuneb) 1.25 MG INH Q6HP PRN WHEEZING #120 NEB Ref 1 Prov: 01/31/17 Ipratropium Deale (Ipratropium 0.5MG Neb Soln) 0.5 MG INH QID #120 NEB Ref 1 Prov: 01/31/17 Reported Medications Salmeterol 50/Fluticasone 100 (Advair 100-50 Diskus) 1 PUFF IN BID VENLAFAXINE HCL (Effexor-Xr) 300 MG PO QAM Lamotrigine (Lamictal 100Mg) 100 MG PO BID Levothyroxine Sodium (Synthroid 0.112MG) 0.112 MG PO DAILY Esomeprazole Magnesium (Nexium 40MG Cap) 40 MG PO DAILY Buspirone Hcl (Buspar 10MG) 10 MG PO BID #60 PAROXETINE HCL (Paroxetine Hcl) 10 MG PO DAILY #30 FENOFIBRATE,MICRONIZED (Fenofibrate) 134 MG PO QHS #30 Metoprolol Tartrate (Lopressor) 50 MG PO DAILY Alprazolam (Xanax 1MG) 1 MG PO TID PRN ANXIETY Albuterol (Albuterol-Hfa Inhaler) 1 PUFF IH BIDPRN #1 INH Rosuvastatin Calcium (Crestor) 5 MG PO QHS DILTIAZEM HCL (Diltiazem 24HR Cd) 120 MG PO DAILY NITROGLYCERIN (Nitrostat) 0.4 MG SL [id number] PRN CHEST PAIN Metformin HCL (Metformin) 1,000 MG PO QHS Linaclotide (Linzess 290MCG) 290 MCG PO DAILY #30 Social Hx: Smoking HX Tobacco Yes Type Cigarettes Packs/day < 1 PACK Are you/the child exposed to second-hand smoke: No Alcohol Alcohol: No Hx of Drug Use Drug Use? No Patien't marital status is Patient's support system is good Review of systems: Constitutional chills, fever, malaise, weakness. Eyes No: no symptoms reported. Ears, Nose, Mouth, Throat No no symptoms reported Respiratory see HPI. Cardiovascular No chest pain, edema, palpitations Gastrointestinal/Abdominal No no symptoms reported Genitourinary No: no symptoms reported. Musculoskeletal No: no symptoms reported. Skin No: no symptoms reported. Neurological Yes: tremors, weakness. Psychiatric Yes: anxious (chronic, at baseline). Exam: Lab data for last 24 hours: Laboratory Tests 02/06/17 1115: Lactic Acid 1.0 02/06/17 1112: ABG pH 7.50 H, ABG pCO2 (Temp Corrct 39.7, ABG pO2 (Temp Correct 75.4 L, ABG HCO3 30.5 H, ABG Total CO2 31.8 H, ABG O2 Sat (Calculated) 95.0, ABG Base Excess 7.4 H, Jesus Test ACCEPTABLE, Blood Gas Comments RIGHT RADIAL 02/06/17 1020: Sodium 141, Potassium 2.7 *L, Chloride 104, Carbon Dioxide 29, BUN 12, Creatinine 0.8, Estimated Creat Clear 84, Estimated GFR (MDRD) 75, Glucose 101, Calcium 8.7, WBC 12.4 H, RBC 3.55 L, Hgb 10.9 L, Hct 31.4 L, MCV 88.4, RDW 13.6, Plt Count 262, MPV 7.5, Gran % 66.5, Gran # 8.2 H, Lymphocytes % 12.8, Monocytes % 3.4, Eosinophils % 16.8 H, Basophils % 0.4, Lymphocytes # 1.6, Monocytes # 0.4, Eosinophils # 2.1 H, Basophils # 0.1, PUBS MCHC 34.7, MCH 30.7 Admission vital signs: 1ST Vital Signs Result Date Time Pulse Ox 91 02/06 1031 B/P 115/56 02/06 1031 O2 Delivery ROOM AIR 02/06 1031 Temp 98.4 02/06 1031 Pulse 60 02/06 1031 Resp 18 02/06 1031 O2 Flow Rate 2 02/06 1227 Additional information: Pleasant female, conversational dyspnea. Drowsy. ENT exam unremarkable. Lungs with faint basilar rales, no rhonchi or wheezing. Abdomen soft, healing midline incision, ostomy LUQ with liquid output, small peristomal hernia, normal BS. Trace bilat ankle edema and mild edema of both hands. Oriented x 3 and able to move all extremities. Plan: Problem List 1. Healthcare-associated pneumonia Assessment/Plan Start HCAP pseudomonas risk protocol. Nebs every 6 hours and PRN. Blood cultures are pending. Obtain UA given her recent abdominal surgery and ongoing fevers. Replace potassium and magnesium IV and start PO. She had PO lasix 40mg at home last night, will hold off on further diuresis until CXR results are reviewed. Echo, sputum and blood cultures and lower extremity dopplers were requested from [facility]. 2. Pleural effusion associated with pulmonary infection 3. Hypokalemia 4. Hypomagnesemia 5. Fever 6. Hypoxia Plan: see above at 1334
[2017-02-06 14:05] LABS: URINE BILIRUBIN - DIPSTICK NEGATIVE (NEG); URINE BLOOD NEGATIVE (NEG)
[2017-02-06 16:39] VITALS: BP 113/56
[2017-02-06 19:47] VITALS: BP 113/53
[2017-02-07 00:03] VITALS: BP 119/47
[2017-02-07 04:00] VITALS: BP 150/70
[2017-02-07 06:02] LABS: HEMOGLOBIN 10.4 g/dL (12.2-16.2); LYMPH # 1.7 K/mm3 (0.7-4.5); LYMPH % 23.1 % (10-50.0)
[2017-02-07 07:20] VITALS: BP 127/60
[2017-02-07 08:00] VITALS: BP 127/60
--- NOTE | 2017-02-07 08:20 | ACUTE CARE PROGRESS NOTE (QUA) ---
Progress Notes Subjective Date 02/07/17 Time 0811 Note Feeling much better this morning, less shortness of breath and no "attacks" of dyspnea overnight. Slept well, tolerating regular diet with good ostomy output and no abdominal pain. No fevers overnight. She has had some resting oxygen saturations around 88% on Room air. Exam reveals a more alert female in NAD. Alert and oriented x 3. Heart with RRR. Lungs have faint wheezes bilaterally, better air movement with coarse bases. Abdomen is soft, + BS, nondistended, mildly tender around ostomy site. Edema is resolved. Patient/family reports: feeling better Nursing reports: no complaints Objective Findings Last VS-Temp:98.1 B/P:127/60 Pulse:80 Resp:17 SaO2:93 ROOM AIR Last weight lbs:142 oz:0 K.411 Method:Floor Scales Reviewed: medications, vital signs, lab results Assessment/Plan Problem List 1. Healthcare-associated pneumonia Assessment/Plan: DC home today to complete oral antibiotics. Add oral fluconazole and continue nystatin orally as well. Will be discharged home with oxygen at 2L NC FU in office in 1 week 2. Pleural effusion associated with pulmonary infection 3. Hypokalemia 4. Hypomagnesemia 5. Fever 6. Hypoxia 7. PULMONARY CANDIDIASIS Patient condition Improving Plan: initiate discharge plan This inpt stay is expected to cross 2 MNs from start of care No at 0819
[2017-02-07] MEDS ORDERED: MAG-OX 400MG T400 MG PO (08:54)
[2017-02-07] MEDS ORDERED: NYSTATIN 1100000 UNI PO (08:54)
[2017-02-07] MEDS ORDERED: POTASSIUM CHLO20 ME2 PO (08:55)
[2017-02-07] MEDS ORDERED: DIFLUCAN 100MG100 MG PO (08:56)
[2017-02-07] MEDS ORDERED: OXYGEN IH (08:57)
--- NOTE | 2017-02-07 14:05 | DISCHARGE SUMMARY STANDARD ---
Demographics Admit date: 02/06/17 Discharge date: 02/07/17 History of present illness History of present illness 51 yr old female presented to clinic today with concerns of recurring fevers, dyspnea at rest and worse with exertion, presyncopal symptoms and malaise. She underwent major abdominal surgery on 01/07/17 and then was admitted here on with bilateral pneumonia and effusions. Improved over that admission and was discharged home on PO antibiotics but returned to ED 02/02/17 and transferred to [facility] in [place] for further management. Daughter reports that she was also treated for pnuemonia there and was discharged on 02/04/17 with prescription for Augmentin, Doxycycline and nystatin suspension. She was also seen by cardiology during her admission to [facility]. Labs ordered by myself last night showed hypokalemia and hypomagnesemia with persistent mild leukocytosis. She was febrile last night and tachypneic in clinic today and thus, was admitted for electrolyte replacement, IV antibiotics, FU CXR and monitoring of oxygenation. Hospital Course Hospital Course: Admitted and started on supplemental oxygen due to oxygen saturations in the 88- 90% range. Scheduled Duoneb initiated along with IV levaquin and zosyn for coverage of possible psuedomonas in setting of HCAP. SHe was also given IV diflucan for yeast in sputum x 2 specimens. CXR revealed improving effusions and bilateral infiltrates and her dyspnea improved significantly with oxygen supplement. Potassium of 2.7 was corrected with both PO and IV potassium chloride and magnesium 1.3 replaced with IV magnesium sulfate. Records from outside hospital revealed normal echo, negative CT chest for PE and negative lower extremity dopplers. On day of discharge her WBC was in normal range, had been afebrile overnight and breathing comfortably on room air. Tolerating regular consistency diet. Good urine output and ostomy output overnight. Magnesium now 1.7 and potassium 3.7 SHe will be discharged home to complete PO Augmentin and Doxycycline which she has from prior discharge. Also advised to complete nystatin orally and will start diflucan 100mg daily for 7 days due to eosinophilia and yeast in sputum. Overnight oximetry testing requested. I encouraged her to move around as tolerated and to use incentive spirometer routinely. No smoking. FU in office in 7 days. Discharge diagnoses Problem List 1. Healthcare-associated pneumonia 2. Pleural effusion associated with pulmonary infection 3. Hypokalemia 4. Hypomagnesemia 5. Fever 6. Hypoxia 7. PULMONARY CANDIDIASIS Medications Medications: Discharge meds are as noted. Follow up Follow up in office in: 7 DAYS with: Makeda Russell APRN at 1404
== END 2017-02-07 10:30 | disposition home or self-care (01) | DRG 194 ==
LOC: ICU 09:09
PROVIDERS: Internal Medicine Adolescent Medicine
DX: J18.9 Pneumonia, unspecified organism (principal); J90 Pleural effusion, not elsewhere classified; B37.0 Candidal stomatitis; E83.42 Hypomagnesemia; E87.6 Hypokalemia
CPT/HCPCS: J2405; J2543

== ENCOUNTER → 2017-03-21 | Outpatient (CLI) | payer MEDICARE ==
[2017-03-21 09:14] LABS: HEMOGLOBIN 12.7 g/dL (12.2-16.2)
[2017-03-21 09:15] LABS: LYMPH # 3.2 K/mm3 (0.7-4.5); LYMPH % 49.7 % (10-50.0)
[2017-03-21 11:32] LABS: BUN 13 mg/dL (7-18)
[2017-03-21 11:35] LABS: GFR (ESTIMATED) 75 ML/MIN (59-)
== END ==
LOC: LAB 08:46
PROVIDERS: Nurse Practitioner Family
DX: R30.0 Dysuria (principal); E11.9 Type 2 diabetes mellitus without complications; E78.5 Hyperlipidemia, unspecified; E03.9 Hypothyroidism, unspecified

== ENCOUNTER → 2017-03-28 | Outpatient (CLI) | payer MEDICARE, MEDICAID ==
[~2017-03-28] MED LIST changes: +DIFLUCAN 100MG100 MG PO; +MAG-OX 400MG T400 MG PO; +NYSTATIN 1100000 UNI PO; +OXYGEN IH; +POTASSIUM CHLO20 ME2 PO
--- NOTE | 2017-03-28 11:07 | RADIOLOGY REPORT PS360 ---
KUB (SINGLE VIEW) COMPARISON: KUB 09/20/2016 HISTORY: Lower abdominal pain TECHNIQUE: KUB FINDINGS: There is a somewhat subtle tubular opacity in the upper mid abdomen which likely is a widely dilated fluid-filled loop of small bowel. There is an apparent colostomy bag left upper quadrant. There is a neurostimulator device overlying the right iliac crest with electrode extending into the mid sacrum. There is an IUD in the center of the pelvis. There are small surgical calli right side the upper pelvis which was not seen on previous abdominal film 09/20/2016. IMPRESSION: Interval placement of left-sided colostomy suspect possible mildly dilated fluid-filled above the small bowel mid abdomen which could reflect some degree of enteritis but there appears be no evidence of obstruction.
== END ==
LOC: RAD 10:26
DX: R10.30 Lower abdominal pain, unspecified (principal); R10.9 Unspecified abdominal pain

== ENCOUNTER → 2017-05-13 | Outpatient (CLI) | payer MEDICARE, MEDICAID ==
[2017-05-13 18:06] LABS: BUN 15 mg/dL (7-18)
[2017-05-13 18:15] LABS: GFR (ESTIMATED) 65 ML/MIN (59-)
== END ==
LOC: LAB 16:02
PROVIDERS: Nurse Practitioner Family
DX: R25.2 Cramp and spasm (principal); E03.9 Hypothyroidism, unspecified